=== PATIENT | female | born 1935 | race African-American/Black ===

== ENCOUNTER 2019-04-12 11:42 | Inpatient (IN) | payer MEDICARE, MEDICAID ==
[~2019-04-12] VITALS: Ht 162.6 cm; Wt 52.2 kg
--- NOTE | 2019-04-12 12:00 | EKG ---
[facility] [address] [place] [address] Test Date: 2019-04-12 Test Time: 11:56:43 Pat Name: EVANS BELCHER Department: Room: Gender: F Orderly: : 1935 Requested By: MELI FOURNIER Order Number: [id number] Reading MD: Measurements Intervals [place] Rate: 74 P: 35 UT: 136 QRS: -9 QRSD: 70 T: 66 QT: 390 QTc: 438 Interpretive Statements SINUS RHYTHM LEFTWARD AXIS ST & T ABNORMALITY, CONSIDER HIGH LATERAL ISCHEMIA OR LEFT VENTRICULAR STRAIN ABNORMAL ECG RI6.01 No previous ECG available for comparison
[2019-04-12] MEDS ORDERED: IV NORMAL SALINE 500ML BAG 500 ML IV ONE (12:15)
[2019-04-12] MEDS ORDERED: IV 1/2 NORMAL SALINE 1,000 ML IV ONE (12:15)
--- NOTE | 2019-04-12 12:19 | PHYS DOC ---
Adult General Chief Complaint Chief Complaint: ALTERED MENTAL STATUS HPI HPI Patient is an 83-year-old female who presents from nursing facility via EMS with report of altered mental status and concerns for dehydration with abnormal lab results. EMS states that patient has been nonverbal since they picked patient and patient remains nonverbal in the ER. Unable to obtain additional history at this time due to patient mental state.[] Review of Systems Review of Systems Constitutional: No reported fever or chills [] Respiratory: No reported shortness of breath [] Cardiovascular: No additional information not addressed in HPI [] GI: No reported vomiting or diarrhea [] Neurologic: Positive reported mental status changes [] Unable to fully assess review of systems due to patient's mental status and nonverbal state. Current Medications Current Medications Current Medications Medications (Trade) Dose Ordered Sig/[place] Start Time Stop Time Status Last Admin Dose Admin Ceftriaxone Sodium (Rocephin) 1 gm 1X ONCE 04/12/19 13:00 04/12/19 13:01 DC 04/12/19 13:44 1 GM Ondansetron HCl (Zofran) 4 mg PRN Q8HRS PRN 04/12/19 14:00 04/13/19 13:59 UNV Sodium Chloride 500 ml @ 500 mls/hr 1X ONCE 04/12/19 12:15 04/12/19 13:14 DC 04/12/19 13:43 500 MLS/HR Allergies Allergies Allergies Coded Allergies Type Severity Reaction Last Updated Verified oxycodone Allergy Intermediate Unknown 04/12/19 Yes Physical Exam Physical Exam Constitutional: Well developed, well nourished, no acute distress, non-toxic appearance. [] HENT: Normocephalic, atraumatic, bilateral external ears normal, oropharynx dry, no oral exudates, nose normal. [] Eyes: PERRLA, EOMI, conjunctiva normal, no discharge. [] Neck: Normal range of motion, no tenderness, supple, no stridor. [] Cardiovascular: Regular rate and rhythm[] Lungs & Thorax: Bilateral breath sounds clear to auscultation [] Abdomen: Bowel sounds normal, soft, no tenderness. [] Skin: Warm, dry, no erythema, no rash. [] Extremities: No tenderness, no cyanosis, no clubbing, ROM intact. [] Neurologic: Somnolent but easily arousable. Unable to fully assess neurological status as patient is unable to follow commands. [] Current Patient Data Vital Signs Vital Signs Date Time Temp Pulse Resp B/P (MAP) Pulse Ox O2 Delivery O2 Flow Rate FiO2 04/12/19 12:19 97.8 80 18 125/70 (88) 98 Room Air 97.8 Lab Values Laboratory Tests Test 04/12/19 12:20 04/12/19 12:55 Urine Collection Type U cath Urine Color Yellow Urine Clarity Hazy Urine pH >8.5 Urine Specific [place] 1.015 Urine Protein 100 mg/dL (NEG-TRACE) Urine Glucose (UA) Negative mg/dL (NEG) Urine Ketones (Stick) Negative mg/dL (NEG) Urine Blood Small (NEG) Urine Nitrite Positive (NEG) Urine Bilirubin Negative (NEG) Urine Urobilinogen Dipstick 1.0 mg/dL (0.2 mg/dL) Urine Leukocyte Esterase Large (NEG) White Blood Count 14.4 x10^3/uL (4.0-11.0) H Red Blood Count 5.84 x10^6/uL (3.50-5.40) H Hemoglobin 15.9 g/dL (12.0-15.5) H Hematocrit 48.6 % (36.0-47.0) H Mean Corpuscular Volume 83 fL (79-100) Mean Corpuscular Hemoglobin 27 pg (25-35) Mean Corpuscular Hemoglobin Concent 33 g/dL (31-37) Red Cell Distribution Width 14.6 % (11.5-14.5) H Platelet Count 231 x10^3/uL (140-400) Neutrophils (%) (Auto) 79 % (31-73) H Lymphocytes (%) (Auto) 15 % (24-48) L Monocytes (%) (Auto) 5 % (0-9) Eosinophils (%) (Auto) 0 % (0-3) Basophils (%) (Auto) 0 % (0-3) Neutrophils # (Auto) 11.4 x10^3/uL (1.8-7.7) H Lymphocytes # (Auto) 2.2 x10^3/uL (1.0-4.8) Monocytes # (Auto) 0.8 x10^3/uL (0.0-1.1) Eosinophils # (Auto) 0.0 x10^3/uL (0.0-0.7) Basophils # (Auto) 0.1 x10^3/uL (0.0-0.2) Prothrombin Time 13.9 SEC (11.7-14.0) Prothrombin Time INR 1.1 (0.8-1.1) Sodium Level 160 mmol/L (136-145) *H Potassium Level 4.2 mmol/L (3.5-5.1) Chloride Level 119 mmol/L (98-107) H Carbon Dioxide Level 32 mmol/L (21-32) Anion Gap 9 (6-14) Blood Urea Nitrogen 48 mg/dL (7-20) H Creatinine 1.3 mg/dL (0.6-1.0) H Estimated GFR (Cockcroft-Gault) 47.1 BUN/Creatinine Ratio 37 (6-20) H Glucose Level 109 mg/dL (70-99) H Calcium Level 10.0 mg/dL (8.5-10.1) Magnesium Level 2.7 mg/dL (1.8-2.4) H Total Bilirubin 1.3 mg/dL (0.2-1.0) H Aspartate Amino Transferase (AST) 25 U/L (15-37) Alanine Aminotransferase (ALT) 19 U/L (14-59) Alkaline Phosphatase 82 U/L (46-116) Ammonia < 10 mcmol/L (11-34) L Troponin I Quantitative < 0.017 ng/mL (0.000-0.055) BQ-Zeg-Q-Type Natriuretic Peptide 218 pg/mL (0-449) Total Protein 7.5 g/dL (6.4-8.2) Albumin 3.9 g/dL (3.4-5.0) Albumin/Globulin Ratio 1.1 (1.0-1.7) Laboratory Tests 04/12/19 12:55 Laboratory Tests 04/12/19 12:55 EKG EKG EKG demonstrates normal sinus rhythm with rate of 74.[] Radiology/Procedures Radiology/Procedures [] Course & Med Decision Making Course & Med Decision Making Pertinent Labs and Imaging studies reviewed. (See chart for details) [] Dragon Disclaimer Dragon Disclaimer This electronic medical record was generated, in whole or in part, using a voice recognition dictation system. Departure Departure Impression: Primary Impression: Hypernatremia Additional Impressions: UTI (urinary tract infection) Dehydration Altered mental status Disposition: 09 ADMITTED INPATIENT Admitting Physician: NAEL (Dr. Almodovar) Condition: GUARDED Referrals: NICHOLE BLUE MD (PCP) Problem Qualifiers Additional Impressions: UTI (urinary tract infection) Urinary tract infection type: site unspecified Hematuria presence: without hematuria Qualified Codes: N39.0 - Urinary tract infection, site not spec ified Altered mental status Altered mental status type: unspecified Qualified Codes: R41.82 - Altered mental status, unspecified MELI FOURNIER Jr. DO Apr 12, 2019 12:19
--- NOTE | 2019-04-12 12:29 | RAD ---
PORTABLE CHEST 1V History: Altered mental status Comparison: October 28, 2006 Findings: Low lung volumes. Patchy left basilar opacity. Right basilar linear atelectasis. Advanced bilateral glenohumeral DJD. No pneumothorax. No pleural effusion. Stable heart size. Postop changes lumbar spine. Impression: 1. Patchy left basilar opacity, may represent atelectasis or consolidation. PA and lateral view of the chest can further evaluate if clinically indicated. 2. Low lung volumes with right basilar linear atelectasis. Electronically signed by: Luciano Godron DO (04/12/2019 12:26 PM) [id number]
[2019-04-12 12:44] LABS: BILIRUBIN,URINE NEGATIVE (NEG); CLARITY,URINE HAZY; COLOR,URINE YELLOW
[2019-04-12 12:45] LABS: NITRITE,URINE POSITIVE (NEG); PH,URINE >8.5; PROTEIN,URINE 100 mg/dL (NEG-TRACE)
[2019-04-12] MEDS ORDERED: cefTRIAXone IV Push 1 GM VIAL. IVP ONE (13:00)
[2019-04-12 13:08] LABS: BASO # 0.1 x10^3/uL (0.0-0.2); BASO % 0 % (0-3); EOS % 0 % (0-3); HEMATOCRIT 48.6 % (36.0-47.0); HEMOGLOBIN 15.9 g/dL (12.0-15.5); LYMPH # 2.2 x10^3/uL (1.0-4.8); LYMPH % 15 % (24-48); MEAN CORPUSCULAR HEMOGLOBIN 27 pg (25-35); MEAN CORPUSCULAR HGB CONC 33 g/dL (31-37); MEAN CORPUSCULAR VOLUME 83 fL (79-100); MONO # 0.8 x10^3/uL (0.0-1.1); MONO % 5 % (0-9); NEUT # 11.4 x10^3/uL (1.8-7.7); NEUT % 79 % (31-73); PLATELET COUNT 231 x10^3/uL (140-400); RED BLOOD COUNT 5.84 x10^6/uL (3.50-5.40); RED CELL DISTRIBUTION WIDTH 14.6 % (11.5-14.5); WHITE BLOOD COUNT 14.4 x10^3/uL (4.0-11.0)
[2019-04-12 13:17] LABS: PROTHROMBIN TIME PATIENT 13.9 SEC (11.7-14.0)
[2019-04-12 13:27] LABS: ALBUMIN 3.9 g/dL (3.4-5.0); ALBUMIN/GLOBULIN RATIO 1.1 (1.0-1.7); CREATININE 1.3 mg/dL (0.6-1.0); GFR 47.1; MAGNESIUM 2.7 mg/dL (1.8-2.4); POTASSIUM 4.2 mmol/L (3.5-5.1); TOTAL BILIRUBIN 1.3 mg/dL (0.2-1.0); TOTAL PROTEIN 7.5 g/dL (6.4-8.2)
[2019-04-12] MEDS ORDERED: ONDANSETRON PF 4 MG/2 ML VIAL. IV PRN ×2 (14:00→20:30)
--- NOTE | 2019-04-12 14:00 | RAD ---
CT HEAD WO CONTRAST Date: 04/12/2019 11:51 AM Clinical Indication: Altered mental status Comparison: 10/28/2006. Technique: 5 mm axial tomographic images were obtained of the head without contrast. These were viewed on brain and bone windows. One or more of the following dose reduction techniques were utilized: Automated exposure control (AEC), Adjustment of mA and/or kV according to patient size, Use of iterative reconstruction technique such as ASiR, CT scan done according to ALARA and image gently/image wisely Findings: Moderate generalized cerebral and cerebellar volume loss. Mild nonspecific periventricular hypoattenuation, most commonly seen with chronic small vessel ischemic disease. Calcified atherosclerosis of the bilateral cavernous and paraclinoid internal carotid arteries and intracranial vertebral arteries. No intra- or extra-axial mass or fluid collection. No acute hemorrhage. Dilation of the lateral and third ventricles, slightly out of proportion to the degree of cerebral volume loss. The pickens-white matter junction is normal. The subarachnoid cisterns are patent. The visualized paranasal sinuses are normal. The visualized portions of the orbits and globes are normal. The mastoid air cells are clear. The tree deadener topogram shows no lytic lesion or fracture. Impression: 1. No acute intracranial process. 2. Moderate cerebral volume loss. Mild chronic small vessel ischemic disease. 3. Dilation of the lateral and third ventricles, slightly out of proportion to the degree of cerebral volume loss. This could relate to advanced central atrophy, although normal pressure hydrocephalus could have a similar appearance. Electronically signed by: Guido Dempsey MD (04/12/2019 1:57 PM) [facility]
--- NOTE | 2019-04-12 14:27 | PDOC1 ---
History and Physical Date of Admission Date of Admission DATE: 04/12/19 TIME: 14:26 Identification/Chief Complaint Chief Complaint SEEN IN ER WITH HYPERNATREMIA 83-year-old female who presents from nursing facility via EMS with report of altered mental status and concerns for dehydration with abnormal lab results. EMS states that patient has been nonverbal since they picked up patient and patient remains confused but cooperative , 'keeps repeating what is my name"in the ER. Unable to obtain additional history at this time due to patient mental state. unknown baseline Past Medical History Cardiovascular: HTN Family History Family History: Hypertension Social History Smoke: No ALCOHOL: none Drugs: None Current Problem List Problem List Problems Medical Problems: (1) Altered mental status Status: Acute (2) Dehydration Status: Acute (3) Hypernatremia Status: Acute (4) UTI (urinary tract infection) Status: Acute Current Medications Current Medications Current Medications Sodium Chloride 1,000 ml @ 250 mls/hr 1X ONCE IV ; Start 04/12/19 at 12:15; Stop 04/12/19 at 16:14 Sodium Chloride 500 ml @ 500 mls/hr 1X ONCE IV Last administered on 04/12/19at 13:43; Start 04/12/19 at 12:15; Stop 04/12/19 at 13:14; Status DC Ceftriaxone Sodium (Rocephin) 1 gm 1X ONCE IVP Last administered on 04/12/19at 13:44; Start 04/12/19 at 13:00; Stop 04/12/19 at 13:01; Status DC Ondansetron HCl (Zofran) 4 mg PRN Q8HRS PRN IV NAUSEA/VOMITING; Start 04/12/19 at 14:00; Stop 04/13/19 at 13:59 Allergies Allergies: Coded Allergies: oxycodone (Verified Allergy, Intermediate, Unknown, 04/12/19) ROS Review of System Review of Systems Review of Systems Constitutional: No reported fever or chills [] Respiratory: No reported shortness of breath [] Cardiovascular: No additional information not addressed in HPI [] GI: No reported vomiting or diarrhea [] Neurologic: Positive reported mental status changes [] Unable to fully assess review of systems due to patient's mental status and encephalopathic state. Vitals Vitals Vital Signs Date Time Temp Pulse Resp B/P (MAP) Pulse Ox O2 Delivery O2 Flow Rate FiO2 04/12/19 12:19 97.8 80 18 125/70 (88) 98 Room Air 97.8 Labs Labs Laboratory Tests Test 04/12/19 12:20 04/12/19 12:55 Urine Collection Type U cath Urine Color Yellow Urine Clarity Hazy Urine pH >8.5 Urine Specific [place] 1.015 Urine Protein 100 mg/dL (NEG-TRACE) Urine Glucose (UA) Negative mg/dL (NEG) Urine Ketones (Stick) Negative mg/dL (NEG) Urine Blood Small (NEG) Urine Nitrite Positive (NEG) Urine Bilirubin Negative (NEG) Urine Urobilinogen Dipstick 1.0 mg/dL (0.2 mg/dL) Urine Leukocyte Esterase Large (NEG) White Blood Count 14.4 x10^3/uL (4.0-11.0) Red Blood Count 5.84 x10^6/uL (3.50-5.40) Hemoglobin 15.9 g/dL (12.0-15.5) Hematocrit 48.6 % (36.0-47.0) Mean Corpuscular Volume 83 fL (79-100) Mean Corpuscular Hemoglobin 27 pg (25-35) Mean Corpuscular Hemoglobin Concent 33 g/dL (31-37) Red Cell Distribution Width 14.6 % (11.5-14.5) Platelet Count 231 x10^3/uL (140-400) Neutrophils (%) (Auto) 79 % (31-73) Lymphocytes (%) (Auto) 15 % (24-48) Monocytes (%) (Auto) 5 % (0-9) Eosinophils (%) (Auto) 0 % (0-3) Basophils (%) (Auto) 0 % (0-3) Neutrophils # (Auto) 11.4 x10^3/uL (1.8-7.7) Lymphocytes # (Auto) 2.2 x10^3/uL (1.0-4.8) Monocytes # (Auto) 0.8 x10^3/uL (0.0-1.1) Eosinophils # (Auto) 0.0 x10^3/uL (0.0-0.7) Basophils # (Auto) 0.1 x10^3/uL (0.0-0.2) Prothrombin Time 13.9 SEC (11.7-14.0) Prothromb Time International Ratio 1.1 (0.8-1.1) Sodium Level 160 mmol/L (136-145) Potassium Level 4.2 mmol/L (3.5-5.1) Chloride Level 119 mmol/L (98-107) Carbon Dioxide Level 32 mmol/L (21-32) Anion Gap 9 (6-14) Blood Urea Nitrogen 48 mg/dL (7-20) Creatinine 1.3 mg/dL (0.6-1.0) Estimated GFR (Cockcroft-Gault) 47.1 BUN/Creatinine Ratio 37 (6-20) Glucose Level 109 mg/dL (70-99) Calcium Level 10.0 mg/dL (8.5-10.1) Magnesium Level 2.7 mg/dL (1.8-2.4) Total Bilirubin 1.3 mg/dL (0.2-1.0) Aspartate Amino Transf (AST/SGOT) 25 U/L (15-37) Alanine Aminotransferase (ALT/SGPT) 19 U/L (14-59) Alkaline Phosphatase 82 U/L (46-116) Ammonia < 10 mcmol/L (11-34) Troponin I Quantitative < 0.017 ng/mL (0.000-0.055) AU-Mcn-E-Type Natriuretic Peptide 218 pg/mL (0-449) Total Protein 7.5 g/dL (6.4-8.2) Albumin 3.9 g/dL (3.4-5.0) Albumin/Globulin Ratio 1.1 (1.0-1.7) Laboratory Tests Test 04/12/19 12:20 04/12/19 12:55 Urine Collection Type U cath Urine Color Yellow Urine Clarity Hazy Urine pH >8.5 Urine Specific [place] 1.015 Urine Protein 100 mg/dL (NEG-TRACE) Urine Glucose (UA) Negative mg/dL (NEG) Urine Ketones (Stick) Negative mg/dL (NEG) Urine Blood Small (NEG) Urine Nitrite Positive (NEG) Urine Bilirubin Negative (NEG) Urine Urobilinogen Dipstick 1.0 mg/dL (0.2 mg/dL) Urine Leukocyte Esterase Large (NEG) White Blood Count 14.4 x10^3/uL (4.0-11.0) Red Blood Count 5.84 x10^6/uL (3.50-5.40) Hemoglobin 15.9 g/dL (12.0-15.5) Hematocrit 48.6 % (36.0-47.0) Mean Corpuscular Volume 83 fL (79-100) Mean Corpuscular Hemoglobin 27 pg (25-35) Mean Corpuscular Hemoglobin Concent 33 g/dL (31-37) Red Cell Distribution Width 14.6 % (11.5-14.5) Platelet Count 231 x10^3/uL (140-400) Neutrophils (%) (Auto) 79 % (31-73) Lymphocytes (%) (Auto) 15 % (24-48) Monocytes (%) (Auto) 5 % (0-9) Eosinophils (%) (Auto) 0 % (0-3) Basophils (%) (Auto) 0 % (0-3) Neutrophils # (Auto) 11.4 x10^3/uL (1.8-7.7) Lymphocytes # (Auto) 2.2 x10^3/uL (1.0-4.8) Monocytes # (Auto) 0.8 x10^3/uL (0.0-1.1) Eosinophils # (Auto) 0.0 x10^3/uL (0.0-0.7) Basophils # (Auto) 0.1 x10^3/uL (0.0-0.2) Prothrombin Time 13.9 SEC (11.7-14.0) Prothromb Time International Ratio 1.1 (0.8-1.1) Sodium Level 160 mmol/L (136-145) Potassium Level 4.2 mmol/L (3.5-5.1) Chloride Level 119 mmol/L (98-107) Carbon Dioxide Level 32 mmol/L (21-32) Anion Gap 9 (6-14) Blood Urea Nitrogen 48 mg/dL (7-20) Creatinine 1.3 mg/dL (0.6-1.0) Estimated GFR (Cockcroft-Gault) 47.1 BUN/Creatinine Ratio 37 (6-20) Glucose Level 109 mg/dL (70-99) Calcium Level 10.0 mg/dL (8.5-10.1) Magnesium Level 2.7 mg/dL (1.8-2.4) Total Bilirubin 1.3 mg/dL (0.2-1.0) Aspartate Amino Transf (AST/SGOT) 25 U/L (15-37) Alanine Aminotransferase (ALT/SGPT) 19 U/L (14-59) Alkaline Phosphatase 82 U/L (46-116) Ammonia < 10 mcmol/L (11-34) Troponin I Quantitative < 0.017 ng/mL (0.000-0.055) ZU-Qdq-Y-Type Natriuretic Peptide 218 pg/mL (0-449) Total Protein 7.5 g/dL (6.4-8.2) Albumin 3.9 g/dL (3.4-5.0) Albumin/Globulin Ratio 1.1 (1.0-1.7) Images Images CT HEAD WO CONTRAST Date: 04/12/2019 11:51 AM Clinical Indication: Altered mental status Comparison: 10/28/2006. Technique: 5 mm axial tomographic images were obtained of the head without contrast. These were viewed on brain and bone windows. One or more of the following dose reduction techniques were utilized: Automated exposure control (AEC), Adjustment of mA and/or kV according to patient size, Use of iterative reconstruction technique such as ASiR, CT scan done according to ALARA and image gently/image wisely Findings: Moderate generalized cerebral and cerebellar volume loss. Mild nonspecific periventricular hypoattenuation, most commonly seen with chronic small vessel ischemic disease. Calcified atherosclerosis of the bilateral cavernous and paraclinoid internal carotid arteries and intracranial vertebral arteries. No intra- or extra-axial mass or fluid collection. No acute hemorrhage. Dilation of the lateral and third ventricles, slightly out of proportion to the degree of cerebral volume loss. The pickens-white matter junction is normal. The subarachnoid cisterns are patent. The visualized paranasal sinuses are normal. The visualized portions of the orbits and globes are normal. The mastoid air cells are clear. The trick rodeo rider topogram shows no lytic lesion or fracture. Impression: 1. No acute intracranial process. 2. Moderate cerebral volume loss. Mild chronic small vessel ischemic disease. 3. Dilation of the lateral and third ventricles, slightly out of proportion to the degree of cerebral volume loss. This could relate to advanced central atrophy, although normal pressure hydrocephalus could have a similar appearance. Electronically signed by: Gentry Brand MD (04/12/2019 1:57 PM) [id number] DICTATED and SIGNED BY: GENTRY BRAND MD DATE: 04/12/19 1357 VTE Prophylaxis Ordered VTE Prophylaxis Devices: No VTE Pharmacological Prophylaxi: Yes Assessment/Plan Assessment/Plan Impression: Hypernatremia, volume depleted, severe acute metabolic encephalopathy UTI (urinary tract infection) Dehydration SEPSIS Altered mental status No acute intracranial process. Moderate cerebral volume loss. Mild chronic small vessel ischemic disease. Dilation of the lateral and third ventricles, slightly out of proportion to the degree of cerebral volume loss. This could relate to advanced central atrophy, although normal pressure hydrocephalus could have a similar appearance. ADMITTED iv fluid support, frequent bmp nephrology consult neurology consult dvt prophylaxis iv rocephin, urine culture blood culture ID CONSULT 36 min cc time JODY UNGER MD Apr 12, 2019 14:27
[2019-04-12 19:28] VITALS: BP 158/81
[2019-04-12 20:11] VITALS: BP 168/79
[2019-04-12] MEDS ORDERED: ACETAMINOPHEN 325 MG TABLET. PO PRN (20:30)
[2019-04-12] MEDS ORDERED: LORazepam 0.5 MG TABLET PO PRN (20:30)
[2019-04-12] MEDS ORDERED: 0.9 % SODIUM CHLORIDE 10 ML DISP.SYRIN. IV PRN (20:30)
[2019-04-12] MEDS ORDERED: ALBUTEROL SULFATE 2.5 MG/3 ML NEBU. NEB PRN (20:30)
[2019-04-12] MEDS ORDERED: guaiFENesin ORAL 200 MG/10 ML LIQUID. PO PRN (20:30)
[2019-04-12 23:31] VITALS: BP 159/68
[2019-04-13 01:35] LABS: CALCIUM 9.4 mg/dL (8.5-10.1); GFR 63.8; POTASSIUM 3.7 mmol/L (3.5-5.1)
[2019-04-13 03:28] VITALS: BP 140/71
[2019-04-13] MEDS ORDERED: IV NORMAL SALINE 1000ML BAG 1,000 ML IV SCH (03:30)
[2019-04-13 05:25] LABS: BASO % 0 % (0-3); EOS # 0.1 x10^3/uL (0.0-0.7); EOS % 0 % (0-3); HEMOGLOBIN 15.7 g/dL (12.0-15.5); LYMPH # 2.5 x10^3/uL (1.0-4.8); LYMPH % 19 % (24-48); MEAN CORPUSCULAR HEMOGLOBIN 27 pg (25-35); MEAN CORPUSCULAR HGB CONC 31 g/dL (31-37); MONO # 0.7 x10^3/uL (0.0-1.1); MONO % 6 % (0-9); NEUT # 9.8 x10^3/uL (1.8-7.7); NEUT % 75 % (31-73); PLATELET COUNT 231 x10^3/uL (140-400); RED BLOOD COUNT 5.88 x10^6/uL (3.50-5.40); RED CELL DISTRIBUTION WIDTH 15.3 % (11.5-14.5); WHITE BLOOD COUNT 13.1 x10^3/uL (4.0-11.0)
[2019-04-13 05:27] LABS: HEMATOCRIT 49.2 % (36.0-47.0); MEAN CORPUSCULAR VOLUME 85 fL (79-100)
[2019-04-13 07:30] VITALS: BP 178/85
--- NOTE | 2019-04-13 07:54 | NUR ---
Critical microbiology culture result relayed to Dr. Almodovar at 0743, orders received to start antibiotics, vancomycin and zosyn and another set of blood culture. Currently, patient is resting in bed, AOx 1, call light within reach.
[2019-04-13] MEDS ORDERED: VANCOMYCIN 750 MG in IV NORMAL SALINE 250ML 250 ML IV ONE (08:00)
--- NOTE | 2019-04-13 08:18 | PDOC ---
PROGRESS NOTES History of Present Illness History of Present Illness VTE Prophylaxis Ordered VTE Prophylaxis Devices: No VTE Pharmacological Prophylaxi: Yes Assessment/Plan Assessment/Plan Impression: Hypernatremia, volume depleted, severe acute metabolic encephalopathy UTI (urinary tract infection) Dehydration SEPSIS Bacteremia POA 04/12 GNR/GPC 1/2 bottles Altered mental status No acute intracranial process. Moderate cerebral volume loss. Mild chronic small vessel ischemic disease. Dilation of the lateral and third ventricles, slightly out of proportion to the degree of cerebral volume loss. This could relate to advanced central atrophy, although normal pressure hydrocephalus could have a similar appearance. ADMITTED iv fluid support, frequent bmp nephrology consult neurology consult dvt prophylaxis iv rocephin, urine culture blood culture ID CONSULT POOR PROGNOSIS 37 min cc time Vitals Vitals Vital Signs Date Time Temp Pulse Resp B/P (MAP) Pulse Ox O2 Delivery O2 Flow Rate FiO2 04/13/19 07:30 98.0 83 18 178/85 (116) 95 Room Air 98.0 Physical Exam Physical Exam Lungs & Thorax: Bilateral breath sounds clear to auscultation [] Abdomen: Bowel sounds normal, soft, no tenderness. [] Skin: Warm, dry, no erythema, no rash. [] Extremities: No tenderness, no cyanosis, no clubbing, ROM intact. [] Neurologic: Somnolent but easily arousable. Unable to fully assess neurological status as patient is unable to follow commands. General: Cooperative, No acute distress Heart: Regular rate Lungs: Clear Abdomen: Normal bowel sounds, Soft Extremities: No cyanosis Labs LABS EXAM: AP View of the chest DATE: 04/13/2019 8:23 PM INDICATION: Sepsis COMPARISON: 04/12/2019 FINDINGS/ IMPRESSION: The heart is not enlarged. Mediastinal and hilar contours are stable. Mild left lung base patchy airspace opacities likely atelectasis. Trace left pleural effusion. No pneumothorax. Glenohumeral joint degenerative changes are seen. Electronically signed by: Marcello Crowder MD (04/13/2019 9:22 AM) [id number] DICTATED and SIGNED BY: MARCELLO CROWDER MD DATE: 04/13/19 0922 STATUS: ADM IN TLOC: SPEC #: [id number] SUSANA: 04/12/19 STATUS: HAILEY CARDOZO #: [id number] RECD: 04/12/19 [facility] DR: MELI FOURNIER Jr. DO SOURCE: BLOOD ENTR: 04/12/19-[address] [facility] [address]: OWEN HEN[facility]: ORDERED: BCULT -- Procedure Result BLOOD CULTURE Final GRAM NEGATIVE RODS AND FEW GRAM POSITIVE COCCI. GROWTH IN ONE OF TWO BOTTLES OF ONE SET DRAWN. CALLED TO JENNIFER STARK ON 6S 04/13/19 AT 0720 BY [employer]. Laboratory Tests Test 04/12/19 12:20 04/12/19 12:55 04/13/19 01:07 04/13/19 04:00 Urine Collection Type U cath Urine Color Yellow Urine Clarity Hazy Urine pH >8.5 Urine Specific Clemons 1.015 Urine Protein 100 mg/dL (NEG-TRACE) Urine Glucose (UA) Negative mg/dL (NEG) Urine Ketones (Stick) Negative mg/dL (NEG) Urine Blood Small (NEG) Urine Nitrite Positive (NEG) Urine Bilirubin Negative (NEG) Urine Urobilinogen Dipstick 1.0 mg/dL (0.2 mg/dL) Urine Leukocyte Esterase Large (NEG) White Blood Count 14.4 x10^3/uL (4.0-11.0) 13.1 x10^3/uL (4.0-11.0) Red Blood Count 5.84 x10^6/uL (3.50-5.40) 5.88 x10^6/uL (3.50-5.40) Hemoglobin 15.9 g/dL (12.0-15.5) 15.7 g/dL (12.0-15.5) Hematocrit 48.6 % (36.0-47.0) 49.2 % (36.0-47.0) Mean Corpuscular Volume 83 fL (79-100) 85 fL (79-100) Mean Corpuscular Hemoglobin 27 pg (25-35) 27 pg (25-35) Mean Corpuscular Hemoglobin Concent 33 g/dL (31-37) 31 g/dL (31-37) Red Cell Distribution Width 14.6 % (11.5-14.5) 15.3 % (11.5-14.5) Platelet Count 231 x10^3/uL (140-400) 231 x10^3/uL (140-400) Neutrophils (%) (Auto) 79 % (31-73) 75 % (31-73) Lymphocytes (%) (Auto) 15 % (24-48) 19 % (24-48) Monocytes (%) (Auto) 5 % (0-9) 6 % (0-9) Eosinophils (%) (Auto) 0 % (0-3) 0 % (0-3) Basophils (%) (Auto) 0 % (0-3) 0 % (0-3) Neutrophils # (Auto) 11.4 x10^3/uL (1.8-7.7) 9.8 x10^3/uL (1.8-7.7) Lymphocytes # (Auto) 2.2 x10^3/uL (1.0-4.8) 2.5 x10^3/uL (1.0-4.8) Monocytes # (Auto) 0.8 x10^3/uL (0.0-1.1) 0.7 x10^3/uL (0.0-1.1) Eosinophils # (Auto) 0.0 x10^3/uL (0.0-0.7) 0.1 x10^3/uL (0.0-0.7) Basophils # (Auto) 0.1 x10^3/uL (0.0-0.2) 0.0 x10^3/uL (0.0-0.2) Prothrombin Time 13.9 SEC (11.7-14.0) Prothromb Time International Ratio 1.1 (0.8-1.1) Sodium Level 160 mmol/L (136-145) 161 mmol/L (136-145) Potassium Level 4.2 mmol/L (3.5-5.1) 3.7 mmol/L (3.5-5.1) Chloride Level 119 mmol/L (98-107) 121 mmol/L (98-107) Carbon Dioxide Level 32 mmol/L (21-32) 28 mmol/L (21-32) Anion Gap 9 (6-14) 12 (6-14) Blood Urea Nitrogen 48 mg/dL (7-20) 40 mg/dL (7-20) Creatinine 1.3 mg/dL (0.6-1.0) 1.0 mg/dL (0.6-1.0) Estimated GFR (Cockcroft-Gault) 47.1 63.8 BUN/Creatinine Ratio 37 (6-20) Glucose Level 109 mg/dL (70-99) 110 mg/dL (70-99) Calcium Level 10.0 mg/dL (8.5-10.1) 9.4 mg/dL (8.5-10.1) Magnesium Level 2.7 mg/dL (1.8-2.4) Total Bilirubin 1.3 mg/dL (0.2-1.0) Aspartate Amino Transf (AST/SGOT) 25 U/L (15-37) Alanine Aminotransferase (ALT/SGPT) 19 U/L (14-59) Alkaline Phosphatase 82 U/L (46-116) Ammonia < 10 mcmol/L (11-34) Troponin I Quantitative < 0.017 ng/mL (0.000-0.055) KJ-Vex-B-Type Natriuretic Peptide 218 pg/mL (0-449) Total Protein 7.5 g/dL (6.4-8.2) Albumin 3.9 g/dL (3.4-5.0) Albumin/Globulin Ratio 1.1 (1.0-1.7) Assessment and Plan Assessmemt and Plan Problems Medical Problems: (1) Altered mental status Status: Acute (2) Dehydration Status: Acute (3) Hypernatremia Status: Acute (4) UTI (urinary tract infection) Status: Acute Comment Review of Relevant I have reviewed the following items shalini (where applicable) has been applied. Labs Laboratory Tests Test 04/12/19 12:20 04/12/19 12:55 04/13/19 01:07 04/13/19 04:00 Urine Collection Type U cath Urine Color Yellow Urine Clarity Hazy Urine pH >8.5 Urine Specific Clemons 1.015 Urine Protein 100 mg/dL (NEG-TRACE) Urine Glucose (UA) Negative mg/dL (NEG) Urine Ketones (Stick) Negative mg/dL (NEG) Urine Blood Small (NEG) Urine Nitrite Positive (NEG) Urine Bilirubin Negative (NEG) Urine Urobilinogen Dipstick 1.0 mg/dL (0.2 mg/dL) Urine Leukocyte Esterase Large (NEG) White Blood Count 14.4 x10^3/uL (4.0-11.0) 13.1 x10^3/uL (4.0-11.0) Red Blood Count 5.84 x10^6/uL (3.50-5.40) 5.88 x10^6/uL (3.50-5.40) Hemoglobin 15.9 g/dL (12.0-15.5) 15.7 g/dL (12.0-15.5) Hematocrit 48.6 % (36.0-47.0) 49.2 % (36.0-47.0) Mean Corpuscular Volume 83 fL (79-100) 85 fL (79-100) Mean Corpuscular Hemoglobin 27 pg (25-35) 27 pg (25-35) Mean Corpuscular Hemoglobin Concent 33 g/dL (31-37) 31 g/dL (31-37) Red Cell Distribution Width 14.6 % (11.5-14.5) 15.3 % (11.5-14.5) Platelet Count 231 x10^3/uL (140-400) 231 x10^3/uL (140-400) Neutrophils (%) (Auto) 79 % (31-73) 75 % (31-73) Lymphocytes (%) (Auto) 15 % (24-48) 19 % (24-48) Monocytes (%) (Auto) 5 % (0-9) 6 % (0-9) Eosinophils (%) (Auto) 0 % (0-3) 0 % (0-3) Basophils (%) (Auto) 0 % (0-3) 0 % (0-3) Neutrophils # (Auto) 11.4 x10^3/uL (1.8-7.7) 9.8 x10^3/uL (1.8-7.7) Lymphocytes # (Auto) 2.2 x10^3/uL (1.0-4.8) 2.5 x10^3/uL (1.0-4.8) Monocytes # (Auto) 0.8 x10^3/uL (0.0-1.1) 0.7 x10^3/uL (0.0-1.1) Eosinophils # (Auto) 0.0 x10^3/uL (0.0-0.7) 0.1 x10^3/uL (0.0-0.7) Basophils # (Auto) 0.1 x10^3/uL (0.0-0.2) 0.0 x10^3/uL (0.0-0.2) Prothrombin Time 13.9 SEC (11.7-14.0) Prothromb Time International Ratio 1.1 (0.8-1.1) Sodium Level 160 mmol/L (136-145) 161 mmol/L (136-145) Potassium Level 4.2 mmol/L (3.5-5.1) 3.7 mmol/L (3.5-5.1) Chloride Level 119 mmol/L (98-107) 121 mmol/L (98-107) Carbon Dioxide Level 32 mmol/L (21-32) 28 mmol/L (21-32) Anion Gap 9 (6-14) 12 (6-14) Blood Urea Nitrogen 48 mg/dL (7-20) 40 mg/dL (7-20) Creatinine 1.3 mg/dL (0.6-1.0) 1.0 mg/dL (0.6-1.0) Estimated GFR (Cockcroft-Gault) 47.1 63.8 BUN/Creatinine Ratio 37 (6-20) Glucose Level 109 mg/dL (70-99) 110 mg/dL (70-99) Calcium Level 10.0 mg/dL (8.5-10.1) 9.4 mg/dL (8.5-10.1) Magnesium Level 2.7 mg/dL (1.8-2.4) Total Bilirubin 1.3 mg/dL (0.2-1.0) Aspartate Amino Transf (AST/SGOT) 25 U/L (15-37) Alanine Aminotransferase (ALT/SGPT) 19 U/L (14-59) Alkaline Phosphatase 82 U/L (46-116) Ammonia < 10 mcmol/L (11-34) Troponin I Quantitative < 0.017 ng/mL (0.000-0.055) BH-Nop-V-Type Natriuretic Peptide 218 pg/mL (0-449) Total Protein 7.5 g/dL (6.4-8.2) Albumin 3.9 g/dL (3.4-5.0) Albumin/Globulin Ratio 1.1 (1.0-1.7) Laboratory Tests Test 04/12/19 12:20 04/12/19 12:55 04/13/19 01:07 04/13/19 04:00 Urine Collection Type U cath Urine Color Yellow Urine Clarity Hazy Urine pH >8.5 Urine Specific Clemons 1.015 Urine Protein 100 mg/dL (NEG-TRACE) Urine Glucose (UA) Negative mg/dL (NEG) Urine Ketones (Stick) Negative mg/dL (NEG) Urine Blood Small (NEG) Urine Nitrite Positive (NEG) Urine Bilirubin Negative (NEG) Urine Urobilinogen Dipstick 1.0 mg/dL (0.2 mg/dL) Urine Leukocyte Esterase Large (NEG) White Blood Count 14.4 x10^3/uL (4.0-11.0) 13.1 x10^3/uL (4.0-11.0) Red Blood Count 5.84 x10^6/uL (3.50-5.40) 5.88 x10^6/uL (3.50-5.40) Hemoglobin 15.9 g/dL (12.0-15.5) 15.7 g/dL (12.0-15.5) Hematocrit 48.6 % (36.0-47.0) 49.2 % (36.0-47.0) Mean Corpuscular Volume 83 fL (79-100) 85 fL (79-100) Mean Corpuscular Hemoglobin 27 pg (25-35) 27 pg (25-35) Mean Corpuscular Hemoglobin Concent 33 g/dL (31-37) 31 g/dL (31-37) Red Cell Distribution Width 14.6 % (11.5-14.5) 15.3 % (11.5-14.5) Platelet Count 231 x10^3/uL (140-400) 231 x10^3/uL (140-400) Neutrophils (%) (Auto) 79 % (31-73) 75 % (31-73) Lymphocytes (%) (Auto) 15 % (24-48) 19 % (24-48) Monocytes (%) (Auto) 5 % (0-9) 6 % (0-9) Eosinophils (%) (Auto) 0 % (0-3) 0 % (0-3) Basophils (%) (Auto) 0 % (0-3) 0 % (0-3) Neutrophils # (Auto) 11.4 x10^3/uL (1.8-7.7) 9.8 x10^3/uL (1.8-7.7) Lymphocytes # (Auto) 2.2 x10^3/uL (1.0-4.8) 2.5 x10^3/uL (1.0-4.8) Monocytes # (Auto) 0.8 x10^3/uL (0.0-1.1) 0.7 x10^3/uL (0.0-1.1) Eosinophils # (Auto) 0.0 x10^3/uL (0.0-0.7) 0.1 x10^3/uL (0.0-0.7) Basophils # (Auto) 0.1 x10^3/uL (0.0-0.2) 0.0 x10^3/uL (0.0-0.2) Prothrombin Time 13.9 SEC (11.7-14.0) Prothromb Time International Ratio 1.1 (0.8-1.1) Sodium Level 160 mmol/L (136-145) 161 mmol/L (136-145) Potassium Level 4.2 mmol/L (3.5-5.1) 3.7 mmol/L (3.5-5.1) Chloride Level 119 mmol/L (98-107) 121 mmol/L (98-107) Carbon Dioxide Level 32 mmol/L (21-32) 28 mmol/L (21-32) Anion Gap 9 (6-14) 12 (6-14) Blood Urea Nitrogen 48 mg/dL (7-20) 40 mg/dL (7-20) Creatinine 1.3 mg/dL (0.6-1.0) 1.0 mg/dL (0.6-1.0) Estimated GFR (Cockcroft-Gault) 47.1 63.8 BUN/Creatinine Ratio 37 (6-20) Glucose Level 109 mg/dL (70-99) 110 mg/dL (70-99) Calcium Level 10.0 mg/dL (8.5-10.1) 9.4 mg/dL (8.5-10.1) Magnesium Level 2.7 mg/dL (1.8-2.4) Total Bilirubin 1.3 mg/dL (0.2-1.0) Aspartate Amino Transf (AST/SGOT) 25 U/L (15-37) Alanine Aminotransferase (ALT/SGPT) 19 U/L (14-59) Alkaline Phosphatase 82 U/L (46-116) Ammonia < 10 mcmol/L (11-34) Troponin I Quantitative < 0.017 ng/mL (0.000-0.055) UQ-Wke-Y-Type Natriuretic Peptide 218 pg/mL (0-449) Total Protein 7.5 g/dL (6.4-8.2) Albumin 3.9 g/dL (3.4-5.0) Albumin/Globulin Ratio 1.1 (1.0-1.7) Microbiology 04/12/19 Blood Culture - Final, Complete Medications Current Medications Sodium Chloride 1,000 ml @ 250 mls/hr 1X ONCE IV Last administered on 04/12/19at 12:15; Start 04/12/19 at 12:15; Stop 04/12/19 at 16:14; Status DC Sodium Chloride 500 ml @ 500 mls/hr 1X ONCE IV Last administered on 04/12/19at 13:43; Start 04/12/19 at 12:15; Stop 04/12/19 at 13:14; Status DC Ceftriaxone Sodium (Rocephin) 1 gm 1X ONCE IVP Last administered on 04/12/19at 13:44; Start 04/12/19 at 13:00; Stop 04/12/19 at 13:01; Status DC Ondansetron HCl (Zofran) 4 mg PRN Q8HRS PRN IV NAUSEA/VOMITING; Start 04/12/19 at 14:00; Stop 04/13/19 at 13:59 Sodium Chloride (Normal Saline Flush) 3 ml QSHIFT PRN IV AFTER MEDS AND BLOOD DRAWS; Start 04/12/19 at 20:30 Ondansetron HCl (Zofran) 4 mg PRN Q4HRS PRN IV NAUSEA/VOMITING; Start 04/12/19 at 20:30 Acetaminophen (Tylenol) 650 mg PRN Q4HRS PRN PO TEMP OVER 100.4F OR MILD PAIN; Start 04/12/19 at 20:30 Albuterol Sulfate (Ventolin Neb Soln) 2.5 mg PRN Q4HRS PRN NEB SHORTNESS OF BREATH; Start 04/12/19 at 20:30 Guaifenesin (Robitussin) 200 mg PRN Q4HRS PRN PO COUGH; Start 04/12/19 at 20:30 Lorazepam (Ativan) 0.5 mg PRN Q4HRS PRN PO ANXIETY / AGITATION; Start 04/12/19 at 20:30 Enoxaparin Sodium (Lovenox 30mg Syringe) 30 mg DAILY SQ ; Start 04/13/19 at 09:00 Sodium Chloride 1,000 ml @ 75 mls/hr [id number] IV Last administered on 04/13/19at 03:34; Start 04/13/19 at 03:30 Vancomycin HCl 750 mg/Sodium Chloride 250 ml @ 250 mls/hr Q24H ONCE IV ; Start 04/13/19 at 08:00; Stop 04/13/19 at 08:59; Status UNV Piperacillin Sod/ Tazobactam Sod 2.25 gm/Sodium Chloride 50 ml @ 100 mls/hr Q6HRS IV ; Start 04/13/19 at 08:00 Vancomycin HCl 1 gm/Sodium Chloride 250 ml @ 250 mls/hr 1X ONCE IV ; Start 04/13/19 at 09:00; Stop 04/13/19 at 09:59 Vancomycin HCl (Vanco Per Pharmacy) 1 each PRN DAILY PRN MC SEE COMMENTS; Start 04/13/19 at 08:15 Vitals/I & O Vital Sign - Last 24 Hours 04/12/19 04/12/19 04/12/19 04/12/19 12:19 12:39 12:39 13:36 Temp 97.8 97.8 Pulse 80 84 71 73 Resp 18 B/P (MAP) 125/70 (88) Pulse Ox 98 98 O2 Delivery Room Air 04/12/19 04/12/19 04/12/19 04/12/19 14:06 15:06 16:36 17:06 Pulse 76 72 66 46 Pulse Ox 96 94 83 04/12/19 04/12/19 04/12/19 04/12/19 18:06 18:36 19:28 20:11 Temp 98.2 98.8 98.2 98.8 Pulse 69 71 67 65 Resp 12 20 B/P (MAP) 158/81 (106) 168/79 (108) Pulse Ox 94 95 96 O2 Delivery Room Air Room Air 04/12/19 04/13/19 04/13/19 23:31 03:28 07:30 Temp 97.5 97.9 98.0 97.5 97.9 98.0 Pulse 64 83 83 Resp 18 18 18 B/P (MAP) 159/68 (98) 140/71 (94) 178/85 (116) Pulse Ox 96 95 95 O2 Delivery Room Air Room Air Room Air JODY UNGER MD Apr 13, 2019 08:18
[2019-04-13] MEDS: PIPERACILLIN/TAZOBACTAM 2.25 GM in IV NORMAL SALINE 50ML 50 ML IV SCH ×4 (08:20→23:42)
[2019-04-13] MEDS ORDERED: VANCOMYCIN 1 GM in IV NORMAL SALINE 250ML 250 ML IV ONE (09:00)
[2019-04-13 09:25] LABS: CALCIUM 9.7 mg/dL (8.5-10.1); CREATININE 1.1 mg/dL (0.6-1.0); GFR 57.1; POTASSIUM 3.6 mmol/L (3.5-5.1)
--- NOTE | 2019-04-13 09:25 | RAD ---
EXAM: AP View of the chest DATE: 04/13/2019 8:23 PM INDICATION: Sepsis COMPARISON: 04/12/2019 FINDINGS/ IMPRESSION: The heart is not enlarged. Mediastinal and hilar contours are stable. Mild left lung base patchy airspace opacities likely atelectasis. Trace left pleural effusion. No pneumothorax. Glenohumeral joint degenerative changes are seen. Electronically signed by: Marcello Leiva MD (04/13/2019 9:22 AM) [id number]
--- NOTE | 2019-04-13 09:30 | PDOC2 ---
NEUROLOGY CONSULT Date of Admission Date of Admission DATE: 04/13/19 TIME: 09:17 Reason for Consult Reason for Consult: encephalopathy Referring Physician Referring Physician: Dr. Almodovar Source Source: Caregiver (son), Chart review History of Present Illness History of Present Illness The patient is an 83-year-old right-handed female with a history of dementia dating back at least 10 years. She has had a gradual decline, her son tells me, for the last several months. She has not been eating much. She was admitted from the half-way with altered mental status and found to have hypernatremia. She has had a stroke, details unknown, in the past but no history of seizure. Son says that I saw her when she initially started having dementia following back surgery (I have no record of this but may have seen her in the hospital). Past Medical History Cardiovascular: HTN CENTRAL NERVOUS SYSTEM: CVA, Dementia (Alzheimers) GI: GERD Musculoskeletal: low back pain, Osteoarthritis Past Surgical History Past Surgical History: Cataract Removal, Hysterectomy, Other (back) Family History Family History: No pertinent hx Social History Social History , no tobacco, alcohol, half-way resident Current Medications Current Medications Current Medications Sodium Chloride 1,000 ml @ 250 mls/hr 1X ONCE IV Last administered on 04/12/19at 12:15; Start 04/12/19 at 12:15; Stop 04/12/19 at 16:14; Status DC Sodium Chloride 500 ml @ 500 mls/hr 1X ONCE IV Last administered on 04/12/19at 13:43; Start 04/12/19 at 12:15; Stop 04/12/19 at 13:14; Status DC Ceftriaxone Sodium (Rocephin) 1 gm 1X ONCE IVP Last administered on 04/12/19at 13:44; Start 04/12/19 at 13:00; Stop 04/12/19 at 13:01; Status DC Ondansetron HCl (Zofran) 4 mg PRN Q8HRS PRN IV NAUSEA/VOMITING; Start 04/12/19 at 14:00; Stop 04/13/19 at 13:59 Sodium Chloride (Normal Saline Flush) 3 ml QSHIFT PRN IV AFTER MEDS AND BLOOD DRAWS; Start 04/12/19 at 20:30 Ondansetron HCl (Zofran) 4 mg PRN Q4HRS PRN IV NAUSEA/VOMITING; Start 04/12/19 at 20:30 Acetaminophen (Tylenol) 650 mg PRN Q4HRS PRN PO TEMP OVER 100.4F OR MILD PAIN; Start 04/12/19 at 20:30 Albuterol Sulfate (Ventolin Neb Soln) 2.5 mg PRN Q4HRS PRN NEB SHORTNESS OF BREATH; Start 04/12/19 at 20:30 Guaifenesin (Robitussin) 200 mg PRN Q4HRS PRN PO COUGH; Start 04/12/19 at 20:30 Lorazepam (Ativan) 0.5 mg PRN Q4HRS PRN PO ANXIETY / AGITATION; Start 04/12/19 at 20:30 Enoxaparin Sodium (Lovenox 30mg Syringe) 30 mg DAILY SQ ; Start 04/13/19 at 09:00 Sodium Chloride 1,000 ml @ 75 mls/hr [id number] IV Last administered on 04/13/19at 03:34; Start 04/13/19 at 03:30; Stop 04/13/19 at 08:16; Status DC Vancomycin HCl 750 mg/Sodium Chloride 250 ml @ 250 mls/hr Q24H ONCE IV ; Start 04/13/19 at 08:00; Stop 04/13/19 at 08:59; Status UNV Piperacillin Sod/ Tazobactam Sod 2.25 gm/Sodium Chloride 50 ml @ 100 mls/hr Q6HRS IV Last administered on 04/13/19at 08:20; Start 04/13/19 at 08:00 Vancomycin HCl 1 gm/Sodium Chloride 250 ml @ 250 mls/hr 1X ONCE IV ; Start 04/13/19 at 09:00; Stop 04/13/19 at 09:59 Vancomycin HCl (Vanco Per Pharmacy) 1 each PRN DAILY PRN MC SEE COMMENTS; Start 04/13/19 at 08:15 Dextrose/Sodium Chloride 1,000 ml @ 60 mls/hr [id number] IV ; Start 04/13/19 at 08:30 Allergies Allergies: Coded Allergies: oxycodone (Verified Allergy, Intermediate, Unknown, 04/12/19) ROS Review of System Negative for fever, chills, weight loss, shortness of breath, chest pain, indigestion, hematochezia, melena, and dysuria. Full 14-point review of systems is negative. Physical Exam Physical Examination General: Well-developed, well-nourished black female in no acute distress HEENT: Normocephalic andatraumatic.Temporal arteriespulsatile and nontender. Neck: Supple without bruit, no meningismus Musculoskeletal: Stability:see neurologic. Gait exam:see neurologic. Tone:see neurologic.Strength:see neurologic. Neurological: Mental Status: orientation, memory, attention span/concentration, language, fund of knowledge: only can tell me her name, perseverates. Cranial Nerves:Pupils equal and reactive to light, extraocular movements areintact, visual do are full to confrontation. There is no facial asymmetry. Palate elevates and tongue protrudes in midline. All other cranial related problems are negative except as mentioned before.Reflexes:1+ and symmetric with flexor plantar responses. Bilateral grasp reflexes. Motor:3/5 strength with normal tone and bulk. Coordination and gait:not testable. Sensory:responds to pinprick in all 4 extremities. Vitals VITALS Vital Signs Date Time Temp Pulse Resp B/P (MAP) Pulse Ox O2 Delivery O2 Flow Rate FiO2 04/13/19 07:30 98.0 83 18 178/85 (116) 95 Room Air 98.0 Labs Labs Laboratory Tests Test 04/12/19 12:20 04/12/19 12:55 04/13/19 01:07 04/13/19 04:00 Urine Collection Type U cath Urine Color Yellow Urine Clarity Hazy Urine pH >8.5 Urine Specific [place] 1.015 Urine Protein 100 mg/dL (NEG-TRACE) Urine Glucose (UA) Negative mg/dL (NEG) Urine Ketones (Stick) Negative mg/dL (NEG) Urine Blood Small (NEG) Urine Nitrite Positive (NEG) Urine Bilirubin Negative (NEG) Urine Urobilinogen Dipstick 1.0 mg/dL (0.2 mg/dL) Urine Leukocyte Esterase Large (NEG) White Blood Count 14.4 x10^3/uL (4.0-11.0) 13.1 x10^3/uL (4.0-11.0) Red Blood Count 5.84 x10^6/uL (3.50-5.40) 5.88 x10^6/uL (3.50-5.40) Hemoglobin 15.9 g/dL (12.0-15.5) 15.7 g/dL (12.0-15.5) Hematocrit 48.6 % (36.0-47.0) 49.2 % (36.0-47.0) Mean Corpuscular Volume 83 fL (79-100) 85 fL (79-100) Mean Corpuscular Hemoglobin 27 pg (25-35) 27 pg (25-35) Mean Corpuscular Hemoglobin Concent 33 g/dL (31-37) 31 g/dL (31-37) Red Cell Distribution Width 14.6 % (11.5-14.5) 15.3 % (11.5-14.5) Platelet Count 231 x10^3/uL (140-400) 231 x10^3/uL (140-400) Neutrophils (%) (Auto) 79 % (31-73) 75 % (31-73) Lymphocytes (%) (Auto) 15 % (24-48) 19 % (24-48) Monocytes (%) (Auto) 5 % (0-9) 6 % (0-9) Eosinophils (%) (Auto) 0 % (0-3) 0 % (0-3) Basophils (%) (Auto) 0 % (0-3) 0 % (0-3) Neutrophils # (Auto) 11.4 x10^3/uL (1.8-7.7) 9.8 x10^3/uL (1.8-7.7) Lymphocytes # (Auto) 2.2 x10^3/uL (1.0-4.8) 2.5 x10^3/uL (1.0-4.8) Monocytes # (Auto) 0.8 x10^3/uL (0.0-1.1) 0.7 x10^3/uL (0.0-1.1) Eosinophils # (Auto) 0.0 x10^3/uL (0.0-0.7) 0.1 x10^3/uL (0.0-0.7) Basophils # (Auto) 0.1 x10^3/uL (0.0-0.2) 0.0 x10^3/uL (0.0-0.2) Prothrombin Time 13.9 SEC (11.7-14.0) Prothromb Time International Ratio 1.1 (0.8-1.1) Sodium Level 160 mmol/L (136-145) 161 mmol/L (136-145) Potassium Level 4.2 mmol/L (3.5-5.1) 3.7 mmol/L (3.5-5.1) Chloride Level 119 mmol/L (98-107) 121 mmol/L (98-107) Carbon Dioxide Level 32 mmol/L (21-32) 28 mmol/L (21-32) Anion Gap 9 (6-14) 12 (6-14) Blood Urea Nitrogen 48 mg/dL (7-20) 40 mg/dL (7-20) Creatinine 1.3 mg/dL (0.6-1.0) 1.0 mg/dL (0.6-1.0) Estimated GFR (Cockcroft-Gault) 47.1 63.8 BUN/Creatinine Ratio 37 (6-20) Glucose Level 109 mg/dL (70-99) 110 mg/dL (70-99) Calcium Level 10.0 mg/dL (8.5-10.1) 9.4 mg/dL (8.5-10.1) Magnesium Level 2.7 mg/dL (1.8-2.4) Total Bilirubin 1.3 mg/dL (0.2-1.0) Aspartate Amino Transf (AST/SGOT) 25 U/L (15-37) Alanine Aminotransferase (ALT/SGPT) 19 U/L (14-59) Alkaline Phosphatase 82 U/L (46-116) Ammonia < 10 mcmol/L (11-34) Troponin I Quantitative < 0.017 ng/mL (0.000-0.055) NH-Zpr-T-Type Natriuretic Peptide 218 pg/mL (0-449) Total Protein 7.5 g/dL (6.4-8.2) Albumin 3.9 g/dL (3.4-5.0) Albumin/Globulin Ratio 1.1 (1.0-1.7) Laboratory Tests Test 04/12/19 12:20 04/12/19 12:55 04/13/19 01:07 04/13/19 04:00 Urine Collection Type U cath Urine Color Yellow Urine Clarity Hazy Urine pH >8.5 Urine Specific [place] 1.015 Urine Protein 100 mg/dL (NEG-TRACE) Urine Glucose (UA) Negative mg/dL (NEG) Urine Ketones (Stick) Negative mg/dL (NEG) Urine Blood Small (NEG) Urine Nitrite Positive (NEG) Urine Bilirubin Negative (NEG) Urine Urobilinogen Dipstick 1.0 mg/dL (0.2 mg/dL) Urine Leukocyte Esterase Large (NEG) White Blood Count 14.4 x10^3/uL (4.0-11.0) 13.1 x10^3/uL (4.0-11.0) Red Blood Count 5.84 x10^6/uL (3.50-5.40) 5.88 x10^6/uL (3.50-5.40) Hemoglobin 15.9 g/dL (12.0-15.5) 15.7 g/dL (12.0-15.5) Hematocrit 48.6 % (36.0-47.0) 49.2 % (36.0-47.0) Mean Corpuscular Volume 83 fL (79-100) 85 fL (79-100) Mean Corpuscular Hemoglobin 27 pg (25-35) 27 pg (25-35) Mean Corpuscular Hemoglobin Concent 33 g/dL (31-37) 31 g/dL (31-37) Red Cell Distribution Width 14.6 % (11.5-14.5) 15.3 % (11.5-14.5) Platelet Count 231 x10^3/uL (140-400) 231 x10^3/uL (140-400) Neutrophils (%) (Auto) 79 % (31-73) 75 % (31-73) Lymphocytes (%) (Auto) 15 % (24-48) 19 % (24-48) Monocytes (%) (Auto) 5 % (0-9) 6 % (0-9) Eosinophils (%) (Auto) 0 % (0-3) 0 % (0-3) Basophils (%) (Auto) 0 % (0-3) 0 % (0-3) Neutrophils # (Auto) 11.4 x10^3/uL (1.8-7.7) 9.8 x10^3/uL (1.8-7.7) Lymphocytes # (Auto) 2.2 x10^3/uL (1.0-4.8) 2.5 x10^3/uL (1.0-4.8) Monocytes # (Auto) 0.8 x10^3/uL (0.0-1.1) 0.7 x10^3/uL (0.0-1.1) Eosinophils # (Auto) 0.0 x10^3/uL (0.0-0.7) 0.1 x10^3/uL (0.0-0.7) Basophils # (Auto) 0.1 x10^3/uL (0.0-0.2) 0.0 x10^3/uL (0.0-0.2) Prothrombin Time 13.9 SEC (11.7-14.0) Prothromb Time International Ratio 1.1 (0.8-1.1) Sodium Level 160 mmol/L (136-145) 161 mmol/L (136-145) Potassium Level 4.2 mmol/L (3.5-5.1) 3.7 mmol/L (3.5-5.1) Chloride Level 119 mmol/L (98-107) 121 mmol/L (98-107) Carbon Dioxide Level 32 mmol/L (21-32) 28 mmol/L (21-32) Anion Gap 9 (6-14) 12 (6-14) Blood Urea Nitrogen 48 mg/dL (7-20) 40 mg/dL (7-20) Creatinine 1.3 mg/dL (0.6-1.0) 1.0 mg/dL (0.6-1.0) Estimated GFR (Cockcroft-Gault) 47.1 63.8 BUN/Creatinine Ratio 37 (6-20) Glucose Level 109 mg/dL (70-99) 110 mg/dL (70-99) Calcium Level 10.0 mg/dL (8.5-10.1) 9.4 mg/dL (8.5-10.1) Magnesium Level 2.7 mg/dL (1.8-2.4) Total Bilirubin 1.3 mg/dL (0.2-1.0) Aspartate Amino Transf (AST/SGOT) 25 U/L (15-37) Alanine Aminotransferase (ALT/SGPT) 19 U/L (14-59) Alkaline Phosphatase 82 U/L (46-116) Ammonia < 10 mcmol/L (11-34) Troponin I Quantitative < 0.017 ng/mL (0.000-0.055) MO-Wlm-L-Type Natriuretic Peptide 218 pg/mL (0-449) Total Protein 7.5 g/dL (6.4-8.2) Albumin 3.9 g/dL (3.4-5.0) Albumin/Globulin Ratio 1.1 (1.0-1.7) Images Images CT HEAD WO CONTRAST Date: 04/12/2019 11:51 AM Clinical Indication: Altered mental status Comparison: 10/28/2006. Technique: 5 mm axial tomographic images were obtained of the head without contrast. These were viewed on brain and bone windows. One or more of the following dose reduction techniques were utilized: Automated exposure control (AEC), Adjustment of mA and/or kV according to patient size, Use of iterative reconstruction technique such as ASiR, CT scan done according to ALARA and image gently/image wisely Findings: Moderate generalized cerebral and cerebellar volume loss. Mild nonspecific periventricular hypoattenuation, most commonly seen with chronic small vessel ischemic disease. Calcified atherosclerosis of the bilateral cavernous and paraclinoid internal carotid arteries and intracranial vertebral arteries. No intra- or extra-axial mass or fluid collection. No acute hemorrhage. Dilation of the lateral and third ventricles, slightly out of proportion to the degree of cerebral volume loss. The pickens-white matter junction is normal. The subarachnoid cisterns are patent. The visualized paranasal sinuses are normal. The visualized portions of the orbits and globes are normal. The mastoid air cells are clear. The scout sniper topogram shows no lytic lesion or fracture. Impression: 1. No acute intracranial process. 2. Moderate cerebral volume loss. Mild chronic small vessel ischemic disease. 3. Dilation of the lateral and third ventricles, slightly out of proportion to the degree of cerebral volume loss. This could relate to advanced central atrophy, although normal pressure hydrocephalus could have a similar appearance. Assessment/Plan Assessment/Plan Impression: Metabolic encephalopathy in the setting of severe dementia, patient has been declining and not eating. This may be her terminal illness. Recommendations: Hydration I discussed with patient's son and [id number], if she does not perk up from the hydration, I recommend sending her back to the half-way on comfort care, hospice. They are fully agreeable with this recommendation. Thank you for letting me help with the patient's care. OWEN ELIZABETH MD Apr 13, 2019 09:30
[2019-04-13] MEDS: IV DEXTROSE 5 %-0.2 % NACL 1,000 ML IV SCH ×2 (09:38→23:44)
[2019-04-13] MEDS: ENOXAPARIN 30 MG/0.3 ML SYRINGE. SQ SCH (09:40)
--- NOTE | 2019-04-13 09:40 | PDOC ---
Infectious Disease Note Vital Sign Vital Signs Vital Signs Date Time Temp Pulse Resp B/P (MAP) Pulse Ox O2 Delivery O2 Flow Rate FiO2 04/13/19 07:30 98.0 83 18 178/85 (116) 95 Room Air 98.0 Labs Lab Laboratory Tests Test 04/12/19 12:20 04/12/19 12:55 04/13/19 01:07 04/13/19 04:00 Urine Collection Type U cath Urine Color Yellow Urine Clarity Hazy Urine pH >8.5 Urine Specific [place] 1.015 Urine Protein 100 mg/dL (NEG-TRACE) Urine Glucose (UA) Negative mg/dL (NEG) Urine Ketones (Stick) Negative mg/dL (NEG) Urine Blood Small (NEG) Urine Nitrite Positive (NEG) Urine Bilirubin Negative (NEG) Urine Urobilinogen Dipstick 1.0 mg/dL (0.2 mg/dL) Urine Leukocyte Esterase Large (NEG) White Blood Count 14.4 x10^3/uL (4.0-11.0) 13.1 x10^3/uL (4.0-11.0) Red Blood Count 5.84 x10^6/uL (3.50-5.40) 5.88 x10^6/uL (3.50-5.40) Hemoglobin 15.9 g/dL (12.0-15.5) 15.7 g/dL (12.0-15.5) Hematocrit 48.6 % (36.0-47.0) 49.2 % (36.0-47.0) Mean Corpuscular Volume 83 fL (79-100) 85 fL (79-100) Mean Corpuscular Hemoglobin 27 pg (25-35) 27 pg (25-35) Mean Corpuscular Hemoglobin Concent 33 g/dL (31-37) 31 g/dL (31-37) Red Cell Distribution Width 14.6 % (11.5-14.5) 15.3 % (11.5-14.5) Platelet Count 231 x10^3/uL (140-400) 231 x10^3/uL (140-400) Neutrophils (%) (Auto) 79 % (31-73) 75 % (31-73) Lymphocytes (%) (Auto) 15 % (24-48) 19 % (24-48) Monocytes (%) (Auto) 5 % (0-9) 6 % (0-9) Eosinophils (%) (Auto) 0 % (0-3) 0 % (0-3) Basophils (%) (Auto) 0 % (0-3) 0 % (0-3) Neutrophils # (Auto) 11.4 x10^3/uL (1.8-7.7) 9.8 x10^3/uL (1.8-7.7) Lymphocytes # (Auto) 2.2 x10^3/uL (1.0-4.8) 2.5 x10^3/uL (1.0-4.8) Monocytes # (Auto) 0.8 x10^3/uL (0.0-1.1) 0.7 x10^3/uL (0.0-1.1) Eosinophils # (Auto) 0.0 x10^3/uL (0.0-0.7) 0.1 x10^3/uL (0.0-0.7) Basophils # (Auto) 0.1 x10^3/uL (0.0-0.2) 0.0 x10^3/uL (0.0-0.2) Prothrombin Time 13.9 SEC (11.7-14.0) Prothromb Time International Ratio 1.1 (0.8-1.1) Sodium Level 160 mmol/L (136-145) 161 mmol/L (136-145) Potassium Level 4.2 mmol/L (3.5-5.1) 3.7 mmol/L (3.5-5.1) Chloride Level 119 mmol/L (98-107) 121 mmol/L (98-107) Carbon Dioxide Level 32 mmol/L (21-32) 28 mmol/L (21-32) Anion Gap 9 (6-14) 12 (6-14) Blood Urea Nitrogen 48 mg/dL (7-20) 40 mg/dL (7-20) Creatinine 1.3 mg/dL (0.6-1.0) 1.0 mg/dL (0.6-1.0) Estimated GFR (Cockcroft-Gault) 47.1 63.8 BUN/Creatinine Ratio 37 (6-20) Glucose Level 109 mg/dL (70-99) 110 mg/dL (70-99) Calcium Level 10.0 mg/dL (8.5-10.1) 9.4 mg/dL (8.5-10.1) Magnesium Level 2.7 mg/dL (1.8-2.4) Total Bilirubin 1.3 mg/dL (0.2-1.0) Aspartate Amino Transf (AST/SGOT) 25 U/L (15-37) Alanine Aminotransferase (ALT/SGPT) 19 U/L (14-59) Alkaline Phosphatase 82 U/L (46-116) Ammonia < 10 mcmol/L (11-34) Troponin I Quantitative < 0.017 ng/mL (0.000-0.055) LA-Vok-P-Type Natriuretic Peptide 218 pg/mL (0-449) Total Protein 7.5 g/dL (6.4-8.2) Albumin 3.9 g/dL (3.4-5.0) Albumin/Globulin Ratio 1.1 (1.0-1.7) Micro Microbiology 04/12/19 Blood Culture - Final, Complete Objective Assessment Bacteremia POA 04/12 GNR/GPC 1/2 bottles UTI 04/12 POA Leukocytosis Patchy infiltrates TANESHA - better Dehydration Electrolyte abn HTN ? demetia vs acute illness as unable to answer questions Bacterial overgrowth on tongue Plan Plan of Care Mrs Gudino is from [facility] but no available records - d/w nursing On Vanc and Zosyn - a dose of Rocephin times one. Cont F/u labs and cults Depending on cult results (if not contamination) may need GI eval for source but currently abd is benign Oral care electrolytes per primary Thank you # [id number] NIK ZELAYA MD Apr 13, 2019 09:40
--- NOTE | 2019-04-13 10:57 | PDOC2 ---
CONSULT Date of Consult Date of Consult DATE: 04/13/19 TIME: 10:48 Reason for Consult Reason for Consult: TANESHA AND HIGH NA Referring Physician Referring Physician: CORNEL Identification/Chief Complaint Chief Complaint CONFUSED Source Source: Chart review History of Present Illness Reason for Visit: THIS IS AN 83 YR OLD WITH CONFUSION AND DEHYDRATION. BROUGHT IN BY OK. HAS HX OF DEMENTIA. NOTED TO HAVE MILD TANESHA AND SEVERE HYPERNATREMIA. ALSO NOTED TO HAVE AN UTI. NO CKD HX NOTED. NO NEPHROTOXINS NOTED Past Medical History Cardiovascular: HTN CENTRAL NERVOUS SYSTEM: CVA, Dementia (Alzheimers) GI: GERD Musculoskeletal: low back pain, Osteoarthritis Renal/: No pertinent hx Past Surgical History Past Surgical History: Cataract Removal, Hysterectomy, Other (back) Family History Family History: Hypertension Social History No ALCOHOL: none Drugs: None Current Problem List Problem List Problems Medical Problems: (1) Altered mental status Status: Acute (2) Dehydration Status: Acute (3) Hypernatremia Status: Acute (4) UTI (urinary tract infection) Status: Acute Current Medications Current Medications Current Medications Sodium Chloride 1,000 ml @ 250 mls/hr 1X ONCE IV Last administered on 04/12/19at 12:15; Start 04/12/19 at 12:15; Stop 04/12/19 at 16:14; Status DC Sodium Chloride 500 ml @ 500 mls/hr 1X ONCE IV Last administered on 04/12/19at 13:43; Start 04/12/19 at 12:15; Stop 04/12/19 at 13:14; Status DC Ceftriaxone Sodium (Rocephin) 1 gm 1X ONCE IVP Last administered on 04/12/19at 13:44; Start 04/12/19 at 13:00; Stop 04/12/19 at 13:01; Status DC Ondansetron HCl (Zofran) 4 mg PRN Q8HRS PRN IV NAUSEA/VOMITING; Start 04/12/19 at 14:00; Stop 04/13/19 at 13:59 Sodium Chloride (Normal Saline Flush) 3 ml QSHIFT PRN IV AFTER MEDS AND BLOOD DRAWS; Start 04/12/19 at 20:30 Ondansetron HCl (Zofran) 4 mg PRN Q4HRS PRN IV NAUSEA/VOMITING; Start 04/12/19 at 20:30 Acetaminophen (Tylenol) 650 mg PRN Q4HRS PRN PO TEMP OVER 100.4F OR MILD PAIN; Start 04/12/19 at 20:30 Albuterol Sulfate (Ventolin Neb Soln) 2.5 mg PRN Q4HRS PRN NEB SHORTNESS OF BREATH; Start 04/12/19 at 20:30 Guaifenesin (Robitussin) 200 mg PRN Q4HRS PRN PO COUGH; Start 04/12/19 at 20:30 Lorazepam (Ativan) 0.5 mg PRN Q4HRS PRN PO ANXIETY / AGITATION; Start 04/12/19 at 20:30 Enoxaparin Sodium (Lovenox 30mg Syringe) 30 mg DAILY SQ Last administered on 04/13/19at 09:40; Start 04/13/19 at 09:00 Sodium Chloride 1,000 ml @ 75 mls/hr [id number] IV Last administered on 04/13/19at 03:34; Start 04/13/19 at 03:30; Stop 04/13/19 at 08:16; Status DC Vancomycin HCl 750 mg/Sodium Chloride 250 ml @ 250 mls/hr Q24H ONCE IV ; Start 04/13/19 at 08:00; Stop 04/13/19 at 08:59; Status UNV Piperacillin Sod/ Tazobactam Sod 2.25 gm/Sodium Chloride 50 ml @ 100 mls/hr Q6HRS IV Last administered on 04/13/19at 08:20; Start 04/13/19 at 08:00 Vancomycin HCl 1 gm/Sodium Chloride 250 ml @ 250 mls/hr 1X ONCE IV Last administered on 04/13/19at 09:39; Start 04/13/19 at 09:00; Stop 04/13/19 at 09:59; Status DC Vancomycin HCl (Vanco Per Pharmacy) 1 each PRN DAILY PRN MC SEE COMMENTS; Start 04/13/19 at 08:15 Dextrose/Sodium Chloride 1,000 ml @ 125 mls/hr Q8H IV Last administered on 04/13/19at 09:38; Start 04/13/19 at 08:30 Allergies Allergies: Coded Allergies: oxycodone (Verified Allergy, Intermediate, Unknown, 04/12/19) ROS Review of System UNABLE TO OBTAIN Physical Exam General: Alert, Oriented X3, Cooperative, No acute distress HEENT: Atraumatic, PERRLA Lungs: Clear to auscultation Heart: Regular rate Abdomen: Normal bowel sounds, Soft, No tenderness Skin: No rashes Neuro: Other (CONFUSED) Psych/Mental Status: Other (CONFUSED AFFECT) MUSCULOSKELETAL: No joint tenderness Vitals VITALS Vital Signs Date Time Temp Pulse Resp B/P (MAP) Pulse Ox O2 Delivery O2 Flow Rate FiO2 04/13/19 07:30 98.0 83 18 178/85 (116) 95 Room Air 98.0 Labs Labs Laboratory Tests Test 04/12/19 12:20 04/12/19 12:55 04/13/19 01:07 04/13/19 04:00 Urine Collection Type U cath Urine Color Yellow Urine Clarity Hazy Urine pH >8.5 Urine Specific [place] 1.015 Urine Protein 100 mg/dL (NEG-TRACE) Urine Glucose (UA) Negative mg/dL (NEG) Urine Ketones (Stick) Negative mg/dL (NEG) Urine Blood Small (NEG) Urine Nitrite Positive (NEG) Urine Bilirubin Negative (NEG) Urine Urobilinogen Dipstick 1.0 mg/dL (0.2 mg/dL) Urine Leukocyte Esterase Large (NEG) White Blood Count 14.4 x10^3/uL (4.0-11.0) 13.1 x10^3/uL (4.0-11.0) Red Blood Count 5.84 x10^6/uL (3.50-5.40) 5.88 x10^6/uL (3.50-5.40) Hemoglobin 15.9 g/dL (12.0-15.5) 15.7 g/dL (12.0-15.5) Hematocrit 48.6 % (36.0-47.0) 49.2 % (36.0-47.0) Mean Corpuscular Volume 83 fL (79-100) 85 fL (79-100) Mean Corpuscular Hemoglobin 27 pg (25-35) 27 pg (25-35) Mean Corpuscular Hemoglobin Concent 33 g/dL (31-37) 31 g/dL (31-37) Red Cell Distribution Width 14.6 % (11.5-14.5) 15.3 % (11.5-14.5) Platelet Count 231 x10^3/uL (140-400) 231 x10^3/uL (140-400) Neutrophils (%) (Auto) 79 % (31-73) 75 % (31-73) Lymphocytes (%) (Auto) 15 % (24-48) 19 % (24-48) Monocytes (%) (Auto) 5 % (0-9) 6 % (0-9) Eosinophils (%) (Auto) 0 % (0-3) 0 % (0-3) Basophils (%) (Auto) 0 % (0-3) 0 % (0-3) Neutrophils # (Auto) 11.4 x10^3/uL (1.8-7.7) 9.8 x10^3/uL (1.8-7.7) Lymphocytes # (Auto) 2.2 x10^3/uL (1.0-4.8) 2.5 x10^3/uL (1.0-4.8) Monocytes # (Auto) 0.8 x10^3/uL (0.0-1.1) 0.7 x10^3/uL (0.0-1.1) Eosinophils # (Auto) 0.0 x10^3/uL (0.0-0.7) 0.1 x10^3/uL (0.0-0.7) Basophils # (Auto) 0.1 x10^3/uL (0.0-0.2) 0.0 x10^3/uL (0.0-0.2) Prothrombin Time 13.9 SEC (11.7-14.0) Prothromb Time International Ratio 1.1 (0.8-1.1) Sodium Level 160 mmol/L (136-145) 161 mmol/L (136-145) Potassium Level 4.2 mmol/L (3.5-5.1) 3.7 mmol/L (3.5-5.1) Chloride Level 119 mmol/L (98-107) 121 mmol/L (98-107) Carbon Dioxide Level 32 mmol/L (21-32) 28 mmol/L (21-32) Anion Gap 9 (6-14) 12 (6-14) Blood Urea Nitrogen 48 mg/dL (7-20) 40 mg/dL (7-20) Creatinine 1.3 mg/dL (0.6-1.0) 1.0 mg/dL (0.6-1.0) Estimated GFR (Cockcroft-Gault) 47.1 63.8 BUN/Creatinine Ratio 37 (6-20) Glucose Level 109 mg/dL (70-99) 110 mg/dL (70-99) Calcium Level 10.0 mg/dL (8.5-10.1) 9.4 mg/dL (8.5-10.1) Magnesium Level 2.7 mg/dL (1.8-2.4) Total Bilirubin 1.3 mg/dL (0.2-1.0) Aspartate Amino Transf (AST/SGOT) 25 U/L (15-37) Alanine Aminotransferase (ALT/SGPT) 19 U/L (14-59) Alkaline Phosphatase 82 U/L (46-116) Ammonia < 10 mcmol/L (11-34) Troponin I Quantitative < 0.017 ng/mL (0.000-0.055) UZ-Wxz-Y-Type Natriuretic Peptide 218 pg/mL (0-449) Total Protein 7.5 g/dL (6.4-8.2) Albumin 3.9 g/dL (3.4-5.0) Albumin/Globulin Ratio 1.1 (1.0-1.7) Test 04/13/19 08:35 Sodium Level 161 mmol/L (136-145) Potassium Level 3.6 mmol/L (3.5-5.1) Chloride Level 120 mmol/L (98-107) Carbon Dioxide Level 30 mmol/L (21-32) Anion Gap 11 (6-14) Blood Urea Nitrogen 35 mg/dL (7-20) Creatinine 1.1 mg/dL (0.6-1.0) Estimated GFR (Cockcroft-Gault) 57.1 Glucose Level 101 mg/dL (70-99) Calcium Level 9.7 mg/dL (8.5-10.1) Laboratory Tests Test 04/12/19 12:20 04/12/19 12:55 04/13/19 01:07 04/13/19 04:00 Urine Collection Type U cath Urine Color Yellow Urine Clarity Hazy Urine pH >8.5 Urine Specific [place] 1.015 Urine Protein 100 mg/dL (NEG-TRACE) Urine Glucose (UA) Negative mg/dL (NEG) Urine Ketones (Stick) Negative mg/dL (NEG) Urine Blood Small (NEG) Urine Nitrite Positive (NEG) Urine Bilirubin Negative (NEG) Urine Urobilinogen Dipstick 1.0 mg/dL (0.2 mg/dL) Urine Leukocyte Esterase Large (NEG) White Blood Count 14.4 x10^3/uL (4.0-11.0) 13.1 x10^3/uL (4.0-11.0) Red Blood Count 5.84 x10^6/uL (3.50-5.40) 5.88 x10^6/uL (3.50-5.40) Hemoglobin 15.9 g/dL (12.0-15.5) 15.7 g/dL (12.0-15.5) Hematocrit 48.6 % (36.0-47.0) 49.2 % (36.0-47.0) Mean Corpuscular Volume 83 fL (79-100) 85 fL (79-100) Mean Corpuscular Hemoglobin 27 pg (25-35) 27 pg (25-35) Mean Corpuscular Hemoglobin Concent 33 g/dL (31-37) 31 g/dL (31-37) Red Cell Distribution Width 14.6 % (11.5-14.5) 15.3 % (11.5-14.5) Platelet Count 231 x10^3/uL (140-400) 231 x10^3/uL (140-400) Neutrophils (%) (Auto) 79 % (31-73) 75 % (31-73) Lymphocytes (%) (Auto) 15 % (24-48) 19 % (24-48) Monocytes (%) (Auto) 5 % (0-9) 6 % (0-9) Eosinophils (%) (Auto) 0 % (0-3) 0 % (0-3) Basophils (%) (Auto) 0 % (0-3) 0 % (0-3) Neutrophils # (Auto) 11.4 x10^3/uL (1.8-7.7) 9.8 x10^3/uL (1.8-7.7) Lymphocytes # (Auto) 2.2 x10^3/uL (1.0-4.8) 2.5 x10^3/uL (1.0-4.8) Monocytes # (Auto) 0.8 x10^3/uL (0.0-1.1) 0.7 x10^3/uL (0.0-1.1) Eosinophils # (Auto) 0.0 x10^3/uL (0.0-0.7) 0.1 x10^3/uL (0.0-0.7) Basophils # (Auto) 0.1 x10^3/uL (0.0-0.2) 0.0 x10^3/uL (0.0-0.2) Prothrombin Time 13.9 SEC (11.7-14.0) Prothromb Time International Ratio 1.1 (0.8-1.1) Sodium Level 160 mmol/L (136-145) 161 mmol/L (136-145) Potassium Level 4.2 mmol/L (3.5-5.1) 3.7 mmol/L (3.5-5.1) Chloride Level 119 mmol/L (98-107) 121 mmol/L (98-107) Carbon Dioxide Level 32 mmol/L (21-32) 28 mmol/L (21-32) Anion Gap 9 (6-14) 12 (6-14) Blood Urea Nitrogen 48 mg/dL (7-20) 40 mg/dL (7-20) Creatinine 1.3 mg/dL (0.6-1.0) 1.0 mg/dL (0.6-1.0) Estimated GFR (Cockcroft-Gault) 47.1 63.8 BUN/Creatinine Ratio 37 (6-20) Glucose Level 109 mg/dL (70-99) 110 mg/dL (70-99) Calcium Level 10.0 mg/dL (8.5-10.1) 9.4 mg/dL (8.5-10.1) Magnesium Level 2.7 mg/dL (1.8-2.4) Total Bilirubin 1.3 mg/dL (0.2-1.0) Aspartate Amino Transf (AST/SGOT) 25 U/L (15-37) Alanine Aminotransferase (ALT/SGPT) 19 U/L (14-59) Alkaline Phosphatase 82 U/L (46-116) Ammonia < 10 mcmol/L (11-34) Troponin I Quantitative < 0.017 ng/mL (0.000-0.055) EB-Sel-F-Type Natriuretic Peptide 218 pg/mL (0-449) Total Protein 7.5 g/dL (6.4-8.2) Albumin 3.9 g/dL (3.4-5.0) Albumin/Globulin Ratio 1.1 (1.0-1.7) Test 04/13/19 08:35 Sodium Level 161 mmol/L (136-145) Potassium Level 3.6 mmol/L (3.5-5.1) Chloride Level 120 mmol/L (98-107) Carbon Dioxide Level 30 mmol/L (21-32) Anion Gap 11 (6-14) Blood Urea Nitrogen 35 mg/dL (7-20) Creatinine 1.1 mg/dL (0.6-1.0) Estimated GFR (Cockcroft-Gault) 57.1 Glucose Level 101 mg/dL (70-99) Calcium Level 9.7 mg/dL (8.5-10.1) Assessment/Plan Assessment/Plan IMP DEHYDRATION HYPERNATREMIA MET ENCEPHALOPATHY DEMENTIA URINARY TRACT INFECTION LEUCOCYTOSIS PLAN ANTIBIOTICS HYDRATION FREE WATER WILL FOLLOW BRANDON WALLS MD Apr 13, 2019 10:57
[2019-04-13 11:23] VITALS: BP 162/86
--- NOTE | 2019-04-13 12:01 | CONS ---
DATE OF CONSULTATION: 04/13/2019 LOCATION: The patient's room is 660. REQUESTING PHYSICIAN: Dr. Almodovar. REASON FOR CONSULTATION: Questionable sepsis. HISTORY OF PRESENT ILLNESS: The patient is an 83-year-old female who apparently comes from [email or web address] however, I cannot find any accompanying records. According to the ER note, she presented from the nursing facility with altered mental status, concerns for dehydration and abnormal lab results. She was apparently nonverbal on her arrival, she has been afebrile since her presentation. However, she had a white count of 14.4 on arrival, her sodium was 160. Creatinine was 1.3. Ammonia was less than 10. Urinalysis was collected and appears consistent with a urinary tract infection. CT scan of the head was performed, showed no acute intracranial process. She had moderate cerebral volume loss, dilation of the lateral and third ventricles. Chest x-ray showed patchy left basilar opacity and low lung volumes and right basilar linear atelectasis. She was given a dose of ceftriaxone and then changed to vancomycin and Zosyn. Currently, the patient is sitting upright in bed and is asking for some apparent cream. PAST MEDICAL HISTORY: According to the notes, positive for hypertension, otherwise unknown. PAST SURGICAL HISTORY: Unknown. REVIEW OF SYSTEMS: Unobtainable. ALLERGIES: LISTED OXYCODONE. SOCIAL HISTORY: Apparently, she is at nursing facility, uncertain of tobacco history. FAMILY HISTORY: Unknown. CURRENT MEDICATIONS: Include vancomycin and Zosyn, Rocephin x 1, Lovenox. Other meds are available and reviewed in the chart. PHYSICAL EXAMINATION: VITAL SIGNS: She is afebrile, temperature is 98, pulse 83, respirations 18, blood pressure 178/85, satting 95% on room air. CONSTITUTIONAL: She is alert. She is in no acute distress. She has normal conjunctivae. She did open her mouth. She has some bacterial overgrowth on her tongue. NECK: Supple, no JVD. LUNGS: Decreased in the bases, no wheeze. HEART: S1, S2. ABDOMEN: Soft, nontender, no guarding or rebound. EXTREMITIES: Her legs were contracted, however, passive range of motion. They were extended without complications. She has no lower extremity edema, no clubbing. SKIN: Warm to touch without signs of rash. NEUROLOGIC: She was alert, but for all intents and purposes nonverbal. LABORATORY DATA: White count 13.1, hemoglobin 15.7, platelets of 231, neutrophils 75, lymphs are 19. Glucose of 110. Creatinine of 1, improved from 1.3, sodium 161. Normal liver function study tests. Normal troponin. Urinalysis concerning for urinary tract infection. Blood cultures reviewed, positive for 1 out of 2 bottles with gram-negative rods and gram-positive cocci from the 12th. Radiology reviewed in history of present illness. IMPRESSION: 1. Bacteremia, present on admission on the with gram-negative rods, gram-positive cocci in 1 of 2 bottles. 2. Urinary tract infection present on admission. 3. Leukocytosis. 4. Patchy infiltrates. 5. Acute kidney injury is better. 6. Dehydration. 7. Electrolyte abnormalities. 8. Hypertension. 9. Questionable dementia versus acute illness as unable to answer questions. 10. Bacterial overgrowth on her tongue. RECOMMENDATIONS: Again, the patient is reportedly from [place] but there are no available records and I did discuss with nursing and looked through her chart. For now, we will continue vancomycin and Zosyn. She did get a dose of Rocephin x 1. Follow up labs and cultures. Depending on culture results if this is not a contamination from her bloodstream, she may need a GI evaluation for her source of bacteremia, but currently her abdomen is benign. She needs oral care. Electrolytes per primary. Thank you for allowing me to participate in the patient's care. Should you have any questions, please do not hesitate to contact me. NIK ZELAYA MD DR: JOESPH/sandie JOB#: [id number] / [id number] IFTIKHAR
[2019-04-13] MEDS: VANCOMYCIN PER PHARMACY MC PRN ×2 (12:13→18:11)
[2019-04-13 12:41] LABS: CALCIUM 9.3 mg/dL (8.5-10.1); CREATININE 0.9 mg/dL (0.6-1.0); POTASSIUM 4.1 mmol/L (3.5-5.1)
--- NOTE | 2019-04-13 14:06 | NUR ---
SS following for discharge planning. SS reviewed pt chart. Pt is from [facility], ; fax [phone]. SS contacted [facility] and verified that pt is a LTC resident from there facility and is able to return when medically stable for discharge. SS will continue to follow for discharge planning.
[2019-04-13] MEDS ORDERED: hydrALAZINE 20 MG/ML VIAL. IVP PRN (14:15)
[2019-04-13 15:11] VITALS: BP 157/67
[2019-04-13 16:54] LABS: CALCIUM 9.4 mg/dL (8.5-10.1); CREATININE 1.1 mg/dL (0.6-1.0); GFR 57.1; POTASSIUM 3.3 mmol/L (3.5-5.1)
--- NOTE | 2019-04-13 17:10 | RAD ---
Examination: CT ABDOMEN PELVIS WO CONTRAST History: Sepsis Comparison/Correlation: None Findings: Axial images of the abdomen and pelvis were obtained without contrast. Sagittal and coronal reformatted images were provided. Interstitial thickening of the lung bases noted. Minimal right medial basilar linear atelectasis or scarring is present. Numerous small calculi present within the gallbladder. No biliary dilatation. Liver is unremarkable. Spleen is normal. Pancreas is unremarkable. Nodular appearance of the adrenal glands is noted. Left medial lower breast mass is present measuring 2.1 cm x 1.7 cm on axial image 8. This abuts the chest wall. Hounsfield units of 46 noted. Nonobstructive punctate right renal inferior pole calyceal calculus is present. There is no right or left hydronephrosis. No ascites or loculated collections. No bowel obstruction. Infrarenal abdominal aortic aneurysm with diameter 3 cm noted. Diverticulosis of the colon is present. Moderate quantity of stool is present in the colon. No inflammatory changes about the cecum identified. No ascites or pelvic free fluid. Minimal gas is present within the urinary bladder. Rods and screws are noted from L2 to L5. Laminectomy defects appear to present although streak artifact limits evaluation. Impression: Diverticulosis. Cholelithiasis without findings of cholecystitis or biliary dilatation. Minimal right costophrenic sulcus atelectasis and/or scarring. Nonobstructive right renal calculus. Left breast mass which abuts the chest wall musculature. Correlate with mammography and ultrasound exam of the left breast. Infrarenal abdominal aortic effusion. PQRS Compliance Statement: One or more of the following individualized dose reduction techniques were utilized for this examination: 1. Automated exposure control 2. Adjustment of the mA and/or kV according to patient size 3. Use of iterative reconstruction technique Electronically signed by: Kai Buenrostro MD (04/13/2019 5:07 PM) [facility]
--- NOTE | 2019-04-13 18:13 | NUR ---
Pharmacy Vancomycin Dosing Note S:Consulted to monitor and dose vancomycin started 04/13/19. O:EVANS BELCHER is a 83 year old F with Sepsis UTI . Height: 5 feet, 4 inches Weight: 47.715242 kg Depue Body Weight: 54.70 Adjusted Body Weight: 51.86 Dosing Weight: Actual Other Antibiotics: ZOSYN LABS: Last BUN: Last Creatinine: 1.1 Creatinine Clearance: 28 mL/min Last WBC: 13.1 Last Procalcitonin: Tmax (past 24 hours): 98.8 Microbiology: I/O: Drug Levels: Last level: on at Last dose given 04/13/19 at 1000 Vancomycin Dosing: Loading Dose: 1000 mg x1 Dosing Weight: Actual Target Trough: 15-20 A: Based on: WEIGHT AND RENAL FUNCTION, VANCOMYCIN 1GM IV BOLUS GIVEN, P: 1. Begin Vancomycin 750 mg IV q24h 2. Follow up Trough level on 04/15/19 at 0930 3. Pharmacy will continue to monitor, follow and adjust therapy as needed. BERNABE LAKHANI [facility], 04/13/19 [id number]
[2019-04-13 19:35] VITALS: BP 167/79
[2019-04-13 23:35] VITALS: BP 164/81
[2019-04-14] MEDS: IV DEXTROSE 5 %-0.2 % NACL 1,000 ML IV SCH ×3 (01:16→17:16)
[2019-04-14] MEDS ORDERED: MAGN400O7 PO (02:54)
[2019-04-14] MEDS ORDERED: ASPI81TA59 PO (02:54)
[2019-04-14] MEDS ORDERED: POLY17PO29 PO (02:54)
[2019-04-14] MEDS ORDERED: GABA600T7 PO (02:54)
[2019-04-14] MEDS ORDERED: DOCU100C28 PO (02:54)
[2019-04-14] MEDS ORDERED: GABA300C18 PO (02:54)
[2019-04-14] MEDS ORDERED: MEMA28CA PO (02:54)
[2019-04-14] MEDS ORDERED: FURO20TA3 PO (02:54)
[2019-04-14] MEDS ORDERED: AMLO5TAB10 PO (02:54)
[2019-04-14] MEDS ORDERED: ACET325S PO (02:54)
[2019-04-14] MEDS ORDERED: DONE10TA61 PO (02:54)
[2019-04-14 03:35] VITALS: BP 154/88
[2019-04-14] MEDS: PIPERACILLIN/TAZOBACTAM 2.25 GM in IV NORMAL SALINE 50ML 50 ML IV SCH ×3 (05:42→18:28)
[2019-04-14 06:07] LABS: BASO # 0.1 x10^3/uL (0.0-0.2); BASO % 1 % (0-3); EOS # 0.2 x10^3/uL (0.0-0.7); EOS % 2 % (0-3); HEMATOCRIT 45.1 % (36.0-47.0); HEMOGLOBIN 14.6 g/dL (12.0-15.5); LYMPH % 20 % (24-48); MEAN CORPUSCULAR HEMOGLOBIN 27 pg (25-35); MEAN CORPUSCULAR HGB CONC 32 g/dL (31-37); MEAN CORPUSCULAR VOLUME 84 fL (79-100); MONO # 0.7 x10^3/uL (0.0-1.1); MONO % 7 % (0-9); NEUT # 7.1 x10^3/uL (1.8-7.7); NEUT % 70 % (31-73); PLATELET COUNT 188 x10^3/uL (140-400); RED BLOOD COUNT 5.37 x10^6/uL (3.50-5.40); RED CELL DISTRIBUTION WIDTH 14.7 % (11.5-14.5); WHITE BLOOD COUNT 10.1 x10^3/uL (4.0-11.0)
[2019-04-14 06:24] LABS: CALCIUM 9.3 mg/dL (8.5-10.1); GFR 63.8
[2019-04-14 07:00] VITALS: BP 152/83
[2019-04-14] MEDS: ENOXAPARIN 30 MG/0.3 ML SYRINGE. SQ SCH (08:18)
--- NOTE | 2019-04-14 08:35 | PDOC ---
Infectious Disease Note Subjective Subjective Denies F/C/S/N/V/D/SOA/cough ROS ROS ? reliability Vital Sign Vital Signs Vital Signs Date Time Temp Pulse Resp B/P (MAP) Pulse Ox O2 Delivery O2 Flow Rate FiO2 04/14/19 03:35 97.6 70 18 154/88 (110) 94 Room Air 97.6 Physical Exam PHYSICAL EXAM CONSTITUTIONAL: She is alert. Coop She is in no acute distress. HEENT: She has normal conjunctivae. She did open her mouth. She has some bacterial overgrowth on her tongue. NECK: Supple, no JVD. LUNGS: Decreased in the bases, no wheeze. HEART: S1, S2. ABDOMEN: Soft, nontender, no guarding or rebound. EXTREMITIES: Her legs were contracted, however, passive range of motion. They were extended without complications. She has no lower extremity edema, no clubbing. SKIN: Warm to touch without signs of rash. NEUROLOGIC: She was alert and followed simple commands Labs Lab Laboratory Tests Test 04/13/19 08:35 04/13/19 11:55 04/13/19 16:10 04/14/19 04:35 Sodium Level 161 mmol/L (136-145) 161 mmol/L (136-145) 158 mmol/L (136-145) 156 mmol/L (136-145) Potassium Level 3.6 mmol/L (3.5-5.1) 4.1 mmol/L (3.5-5.1) 3.3 mmol/L (3.5-5.1) 3.0 mmol/L (3.5-5.1) Chloride Level 120 mmol/L (98-107) 121 mmol/L (98-107) 120 mmol/L (98-107) 119 mmol/L (98-107) Carbon Dioxide Level 30 mmol/L (21-32) 28 mmol/L (21-32) 27 mmol/L (21-32) 25 mmol/L (21-32) Anion Gap 11 (6-14) 12 (6-14) 11 (6-14) 12 (6-14) Blood Urea Nitrogen 35 mg/dL (7-20) 34 mg/dL (7-20) 31 mg/dL (7-20) 22 mg/dL (7-20) Creatinine 1.1 mg/dL (0.6-1.0) 0.9 mg/dL (0.6-1.0) 1.1 mg/dL (0.6-1.0) 1.0 mg/dL (0.6-1.0) Estimated GFR (Cockcroft-Gault) 57.1 72.0 57.1 63.8 Glucose Level 101 mg/dL (70-99) 110 mg/dL (70-99) 114 mg/dL (70-99) 152 mg/dL (70-99) Calcium Level 9.7 mg/dL (8.5-10.1) 9.3 mg/dL (8.5-10.1) 9.4 mg/dL (8.5-10.1) 9.3 mg/dL (8.5-10.1) White Blood Count 10.1 x10^3/uL (4.0-11.0) Red Blood Count 5.37 x10^6/uL (3.50-5.40) Hemoglobin 14.6 g/dL (12.0-15.5) Hematocrit 45.1 % (36.0-47.0) Mean Corpuscular Volume 84 fL (79-100) Mean Corpuscular Hemoglobin 27 pg (25-35) Mean Corpuscular Hemoglobin Concent 32 g/dL (31-37) Red Cell Distribution Width 14.7 % (11.5-14.5) Platelet Count 188 x10^3/uL (140-400) Neutrophils (%) (Auto) 70 % (31-73) Lymphocytes (%) (Auto) 20 % (24-48) Monocytes (%) (Auto) 7 % (0-9) Eosinophils (%) (Auto) 2 % (0-3) Basophils (%) (Auto) 1 % (0-3) Neutrophils # (Auto) 7.1 x10^3/uL (1.8-7.7) Lymphocytes # (Auto) 2.0 x10^3/uL (1.0-4.8) Monocytes # (Auto) 0.7 x10^3/uL (0.0-1.1) Eosinophils # (Auto) 0.2 x10^3/uL (0.0-0.7) Basophils # (Auto) 0.1 x10^3/uL (0.0-0.2) Micro IMPRESSION: The heart is not enlarged. Mediastinal and hilar contours are stable. Mild left lung base patchy airspace opacities likely atelectasis. Trace left pleural effusion. No pneumothorax. Microbiology 04/12/19 Blood Culture - Final, Complete Objective Assessment Bacteremia POA 04/12 GNR/GPC 1/2 bottles UTI 04/12 POA Leukocytosis - better Patchy infiltrates TANESHA - better Dehydration Electrolyte abn - better HTN ? demetia vs acute illness Bacterial overgrowth on tongue Plan Plan of Care Mrs Gudino is from [place] but no available records - d/w nursing Cont Vanc and Zosyn - a dose of Rocephin times one. F/u labs and cults Depending on cult results (if not contamination) may need GI eval for source but currently abd is benign Oral care electrolytes per primary NIK ZELAYA MD Apr 14, 2019 08:34
--- NOTE | 2019-04-14 10:22 | PDOC ---
PROGRESS NOTES Assessment Problems Medical Problems: (1) Altered mental status Status: Acute (2) Dehydration Status: Acute (3) Hypernatremia Status: Acute (4) UTI (urinary tract infection) Status: Acute Metabolic encephalopathy in the setting of severe dementia, patient has been declining and not eating. This may be her terminal illness. Recommendations: Hydration I discussed with patient's son and [id number], if she does not perk up from the hydration, I recommend sending her back to the halfway on comfort care, hospice. They are fully agreeable with this recommendation. Objective Vital Signs Date Time Temp Pulse Resp B/P (MAP) Pulse Ox O2 Delivery O2 Flow Rate FiO2 04/14/19 07:00 98.1 60 16 152/83 (106) 94 Room Air 98.1 Intake and Output 04/14/19 07:00 Intake Total 0 ml Balance 0 ml Intake Oral 0 ml # Voids 4 PHYSICAL EXAM Alert. Eyes open, nonverbal, does not follow commands. PERRL. EOMI. CN: no focal findings. Muscle tone: [place]. Muscle strength: 3/5 DTR: 1+ Bilateral grass reflexes Plantar reflex: flexor Gait: not examined in bed. Sensory exam: not cooperative. Cerebellar: not cooperative Review of Relevant I have reviewed the following items shalini (where applicable) has been applied. Labs Laboratory Tests Test 04/12/19 12:20 04/12/19 12:55 04/13/19 01:07 04/13/19 04:00 Urine Collection Type U cath Urine Color Yellow Urine Clarity Hazy Urine pH >8.5 Urine Specific Mobile 1.015 Urine Protein 100 mg/dL (NEG-TRACE) Urine Glucose (UA) Negative mg/dL (NEG) Urine Ketones (Stick) Negative mg/dL (NEG) Urine Blood Small (NEG) Urine Nitrite Positive (NEG) Urine Bilirubin Negative (NEG) Urine Urobilinogen Dipstick 1.0 mg/dL (0.2 mg/dL) Urine Leukocyte Esterase Large (NEG) White Blood Count 14.4 x10^3/uL (4.0-11.0) 13.1 x10^3/uL (4.0-11.0) Red Blood Count 5.84 x10^6/uL (3.50-5.40) 5.88 x10^6/uL (3.50-5.40) Hemoglobin 15.9 g/dL (12.0-15.5) 15.7 g/dL (12.0-15.5) Hematocrit 48.6 % (36.0-47.0) 49.2 % (36.0-47.0) Mean Corpuscular Volume 83 fL (79-100) 85 fL (79-100) Mean Corpuscular Hemoglobin 27 pg (25-35) 27 pg (25-35) Mean Corpuscular Hemoglobin Concent 33 g/dL (31-37) 31 g/dL (31-37) Red Cell Distribution Width 14.6 % (11.5-14.5) 15.3 % (11.5-14.5) Platelet Count 231 x10^3/uL (140-400) 231 x10^3/uL (140-400) Neutrophils (%) (Auto) 79 % (31-73) 75 % (31-73) Lymphocytes (%) (Auto) 15 % (24-48) 19 % (24-48) Monocytes (%) (Auto) 5 % (0-9) 6 % (0-9) Eosinophils (%) (Auto) 0 % (0-3) 0 % (0-3) Basophils (%) (Auto) 0 % (0-3) 0 % (0-3) Neutrophils # (Auto) 11.4 x10^3/uL (1.8-7.7) 9.8 x10^3/uL (1.8-7.7) Lymphocytes # (Auto) 2.2 x10^3/uL (1.0-4.8) 2.5 x10^3/uL (1.0-4.8) Monocytes # (Auto) 0.8 x10^3/uL (0.0-1.1) 0.7 x10^3/uL (0.0-1.1) Eosinophils # (Auto) 0.0 x10^3/uL (0.0-0.7) 0.1 x10^3/uL (0.0-0.7) Basophils # (Auto) 0.1 x10^3/uL (0.0-0.2) 0.0 x10^3/uL (0.0-0.2) Prothrombin Time 13.9 SEC (11.7-14.0) Prothromb Time International Ratio 1.1 (0.8-1.1) Sodium Level 160 mmol/L (136-145) 161 mmol/L (136-145) Potassium Level 4.2 mmol/L (3.5-5.1) 3.7 mmol/L (3.5-5.1) Chloride Level 119 mmol/L (98-107) 121 mmol/L (98-107) Carbon Dioxide Level 32 mmol/L (21-32) 28 mmol/L (21-32) Anion Gap 9 (6-14) 12 (6-14) Blood Urea Nitrogen 48 mg/dL (7-20) 40 mg/dL (7-20) Creatinine 1.3 mg/dL (0.6-1.0) 1.0 mg/dL (0.6-1.0) Estimated GFR (Cockcroft-Gault) 47.1 63.8 BUN/Creatinine Ratio 37 (6-20) Glucose Level 109 mg/dL (70-99) 110 mg/dL (70-99) Calcium Level 10.0 mg/dL (8.5-10.1) 9.4 mg/dL (8.5-10.1) Magnesium Level 2.7 mg/dL (1.8-2.4) Total Bilirubin 1.3 mg/dL (0.2-1.0) Aspartate Amino Transf (AST/SGOT) 25 U/L (15-37) Alanine Aminotransferase (ALT/SGPT) 19 U/L (14-59) Alkaline Phosphatase 82 U/L (46-116) Ammonia < 10 mcmol/L (11-34) Troponin I Quantitative < 0.017 ng/mL (0.000-0.055) ER-Klm-J-Type Natriuretic Peptide 218 pg/mL (0-449) Total Protein 7.5 g/dL (6.4-8.2) Albumin 3.9 g/dL (3.4-5.0) Albumin/Globulin Ratio 1.1 (1.0-1.7) Test 04/13/19 08:35 04/13/19 11:55 04/13/19 16:10 04/14/19 04:35 Sodium Level 161 mmol/L (136-145) 161 mmol/L (136-145) 158 mmol/L (136-145) 156 mmol/L (136-145) Potassium Level 3.6 mmol/L (3.5-5.1) 4.1 mmol/L (3.5-5.1) 3.3 mmol/L (3.5-5.1) 3.0 mmol/L (3.5-5.1) Chloride Level 120 mmol/L (98-107) 121 mmol/L (98-107) 120 mmol/L (98-107) 119 mmol/L (98-107) Carbon Dioxide Level 30 mmol/L (21-32) 28 mmol/L (21-32) 27 mmol/L (21-32) 25 mmol/L (21-32) Anion Gap 11 (6-14) 12 (6-14) 11 (6-14) 12 (6-14) Blood Urea Nitrogen 35 mg/dL (7-20) 34 mg/dL (7-20) 31 mg/dL (7-20) 22 mg/dL (7-20) Creatinine 1.1 mg/dL (0.6-1.0) 0.9 mg/dL (0.6-1.0) 1.1 mg/dL (0.6-1.0) 1.0 mg/dL (0.6-1.0) Estimated GFR (Cockcroft-Gault) 57.1 72.0 57.1 63.8 Glucose Level 101 mg/dL (70-99) 110 mg/dL (70-99) 114 mg/dL (70-99) 152 mg/dL (70-99) Calcium Level 9.7 mg/dL (8.5-10.1) 9.3 mg/dL (8.5-10.1) 9.4 mg/dL (8.5-10.1) 9.3 mg/dL (8.5-10.1) White Blood Count 10.1 x10^3/uL (4.0-11.0) Red Blood Count 5.37 x10^6/uL (3.50-5.40) Hemoglobin 14.6 g/dL (12.0-15.5) Hematocrit 45.1 % (36.0-47.0) Mean Corpuscular Volume 84 fL (79-100) Mean Corpuscular Hemoglobin 27 pg (25-35) Mean Corpuscular Hemoglobin Concent 32 g/dL (31-37) Red Cell Distribution Width 14.7 % (11.5-14.5) Platelet Count 188 x10^3/uL (140-400) Neutrophils (%) (Auto) 70 % (31-73) Lymphocytes (%) (Auto) 20 % (24-48) Monocytes (%) (Auto) 7 % (0-9) Eosinophils (%) (Auto) 2 % (0-3) Basophils (%) (Auto) 1 % (0-3) Neutrophils # (Auto) 7.1 x10^3/uL (1.8-7.7) Lymphocytes # (Auto) 2.0 x10^3/uL (1.0-4.8) Monocytes # (Auto) 0.7 x10^3/uL (0.0-1.1) Eosinophils # (Auto) 0.2 x10^3/uL (0.0-0.7) Basophils # (Auto) 0.1 x10^3/uL (0.0-0.2) Laboratory Tests Test 04/13/19 11:55 04/13/19 16:10 04/14/19 04:35 Sodium Level 161 mmol/L (136-145) 158 mmol/L (136-145) 156 mmol/L (136-145) Potassium Level 4.1 mmol/L (3.5-5.1) 3.3 mmol/L (3.5-5.1) 3.0 mmol/L (3.5-5.1) Chloride Level 121 mmol/L (98-107) 120 mmol/L (98-107) 119 mmol/L (98-107) Carbon Dioxide Level 28 mmol/L (21-32) 27 mmol/L (21-32) 25 mmol/L (21-32) Anion Gap 12 (6-14) 11 (6-14) 12 (6-14) Blood Urea Nitrogen 34 mg/dL (7-20) 31 mg/dL (7-20) 22 mg/dL (7-20) Creatinine 0.9 mg/dL (0.6-1.0) 1.1 mg/dL (0.6-1.0) 1.0 mg/dL (0.6-1.0) Estimated GFR (Cockcroft-Gault) 72.0 57.1 63.8 Glucose Level 110 mg/dL (70-99) 114 mg/dL (70-99) 152 mg/dL (70-99) Calcium Level 9.3 mg/dL (8.5-10.1) 9.4 mg/dL (8.5-10.1) 9.3 mg/dL (8.5-10.1) White Blood Count 10.1 x10^3/uL (4.0-11.0) Red Blood Count 5.37 x10^6/uL (3.50-5.40) Hemoglobin 14.6 g/dL (12.0-15.5) Hematocrit 45.1 % (36.0-47.0) Mean Corpuscular Volume 84 fL (79-100) Mean Corpuscular Hemoglobin 27 pg (25-35) Mean Corpuscular Hemoglobin Concent 32 g/dL (31-37) Red Cell Distribution Width 14.7 % (11.5-14.5) Platelet Count 188 x10^3/uL (140-400) Neutrophils (%) (Auto) 70 % (31-73) Lymphocytes (%) (Auto) 20 % (24-48) Monocytes (%) (Auto) 7 % (0-9) Eosinophils (%) (Auto) 2 % (0-3) Basophils (%) (Auto) 1 % (0-3) Neutrophils # (Auto) 7.1 x10^3/uL (1.8-7.7) Lymphocytes # (Auto) 2.0 x10^3/uL (1.0-4.8) Monocytes # (Auto) 0.7 x10^3/uL (0.0-1.1) Eosinophils # (Auto) 0.2 x10^3/uL (0.0-0.7) Basophils # (Auto) 0.1 x10^3/uL (0.0-0.2) Microbiology 04/13/19 Blood Culture - Preliminary, Resulted NO GROWTH AFTER 1 DAY Medications Current Medications Sodium Chloride 1,000 ml @ 250 mls/hr 1X ONCE IV Last administered on 04/12/19at 12:15; Start 04/12/19 at 12:15; Stop 04/12/19 at 16:14; Status DC Sodium Chloride 500 ml @ 500 mls/hr 1X ONCE IV Last administered on 04/12/19at 13:43; Start 04/12/19 at 12:15; Stop 04/12/19 at 13:14; Status DC Ceftriaxone Sodium (Rocephin) 1 gm 1X ONCE IVP Last administered on 04/12/19at 13:44; Start 04/12/19 at 13:00; Stop 04/12/19 at 13:01; Status DC Ondansetron HCl (Zofran) 4 mg PRN Q8HRS PRN IV NAUSEA/VOMITING; Start 04/12/19 at 14:00; Stop 04/13/19 at 13:59; Status DC Sodium Chloride (Normal Saline Flush) 3 ml QSHIFT PRN IV AFTER MEDS AND BLOOD DRAWS; Start 04/12/19 at 20:30 Ondansetron HCl (Zofran) 4 mg PRN Q4HRS PRN IV NAUSEA/VOMITING; Start 04/12/19 at 20:30 Acetaminophen (Tylenol) 650 mg PRN Q4HRS PRN PO TEMP OVER 100.4F OR MILD PAIN; Start 04/12/19 at 20:30 Albuterol Sulfate (Ventolin Neb Soln) 2.5 mg PRN Q4HRS PRN NEB SHORTNESS OF BREATH; Start 04/12/19 at 20:30 Guaifenesin (Robitussin) 200 mg PRN Q4HRS PRN PO COUGH; Start 04/12/19 at 20:30 Lorazepam (Ativan) 0.5 mg PRN Q4HRS PRN PO ANXIETY / AGITATION; Start 04/12/19 at 20:30 Enoxaparin Sodium (Lovenox 30mg Syringe) 30 mg DAILY SQ Last administered on 04/14/19at 08:18; Start 04/13/19 at 09:00 Sodium Chloride 1,000 ml @ 75 mls/hr [id number] IV Last administered on 04/13/19at 03:34; Start 04/13/19 at 03:30; Stop 04/13/19 at 08:16; Status DC Vancomycin HCl 750 mg/Sodium Chloride 250 ml @ 250 mls/hr Q24H ONCE IV ; Start 04/13/19 at 08:00; Stop 04/13/19 at 08:59; Status UNV Piperacillin Sod/ Tazobactam Sod 2.25 gm/Sodium Chloride 50 ml @ 100 mls/hr Q6HRS IV Last administered on 04/14/19at 05:42; Start 04/13/19 at 08:00 Vancomycin HCl 1 gm/Sodium Chloride 250 ml @ 250 mls/hr 1X ONCE IV Last administered on 04/13/19at 09:39; Start 04/13/19 at 09:00; Stop 04/13/19 at 09:59; Status DC Vancomycin HCl (Vanco Per Pharmacy) 1 each PRN DAILY PRN MC SEE COMMENTS Last administered on 04/13/19at 18:11; Start 04/13/19 at 08:15 Dextrose/Sodium Chloride 1,000 ml @ 125 mls/hr Q8H IV Last administered on 04/14/19at 08:18; Start 04/13/19 at 08:30 Vancomycin HCl 750 mg/Sodium Chloride 250 ml @ 250 mls/hr Q24H IV ; Start 04/02 07/19 at 10:00 Vancomycin HCl (Vancomycin Trough Level) 1 each 1X ONCE MC ; Start 04/15/19 at 09:30; Stop 04/15/19 at 09:31 Hydralazine HCl (Apresoline Inj) 10 mg PRN Q6HRS PRN IVP ELEVATED BP, SEE COMMENTS Last administered on 04/13/19at 14:14; Start 04/13/19 at 14:15 Active Scripts Active Reported Namenda Xr (Memantine Hcl) 28 Mg Cap.spr.24 28 Mg PO DAILY Miralax (Polyethylene Glycol 3350) 17 Gm Powd.pack 1 Packet PO DAILY dissolve in water Milk Of Magnesia (Magnesium Hydroxide) 400 Mg/5 Ml Oral.susp 400 Mg PO DAILY Furosemide 20 Mg Tablet 20 Mg PO DAILY Gabapentin 600 Mg Tablet 600 Mg PO QHS Gabapentin 300 Mg Capsule 300 Mg PO DAILY Docusate Sodium 100 Mg Capsule 100 Mg PO DAILY Children's Aspirin (Aspirin) 81 Mg Tab.chew 81 Mg PO DAILY Aricept (Donepezil Hcl) 10 Mg Tablet 10 Mg PO DAILY Amlodipine Besylate 5 Mg Tablet 5 Mg PO DAILY Acetaminophen 325 Mg/10.15 Ml Solution 650 Mg PO Q8HRS Vitals/I & O Vital Sign - Last 24 Hours 04/13/19 04/13/19 04/13/19 04/13/19 11:23 14:14 15:11 19:20 Temp 98.3 98.0 98.3 98.0 Pulse 75 75 75 Resp 18 18 B/P (MAP) 162/86 (111) 162/86 157/67 (97) Pulse Ox 92 92 O2 Delivery Room Air Room Air Room Air 04/13/19 04/13/19 04/14/19 04/14/19 19:35 23:35 03:35 07:00 Temp 99.0 98.4 97.6 98.1 99.0 98.4 97.6 98.1 Pulse 82 72 70 60 Resp 19 18 18 16 B/P (MAP) 167/79 (108) 164/81 (108) 154/88 (110) 152/83 (106) Pulse Ox 96 97 94 94 O2 Delivery Room Air Room Air Room Air Room Air Intake and Output 04/13/19 04/13/19 04/14/19 15:00 23:00 07:00 Intake Total 0 ml Balance 0 ml OWEN ELIZABETH MD Apr 14, 2019 10:22
[2019-04-14] MEDS: VANCOMYCIN 750 MG in IV NORMAL SALINE 250ML 250 ML IV SCH (10:46)
--- NOTE | 2019-04-14 10:55 | PDOC ---
Renal-Progress Notes Subjective Notes Notes NO NEW COMPLAINTS History of Present Illness Hx of present illness STABLE Vitals Vitals Vital Signs Date Time Temp Pulse Resp B/P (MAP) Pulse Ox O2 Delivery O2 Flow Rate FiO2 04/14/19 07:00 98.1 60 16 152/83 (106) 94 Room Air 98.1 Weight Weight [ ] I.O. Intake and Output Intake and Output 04/14/19 07:00 Intake Total 0 ml Balance 0 ml Intake Oral 0 ml # Voids 4 Labs Labs Laboratory Tests Test 04/13/19 11:55 04/13/19 16:10 04/14/19 04:35 Sodium Level 161 mmol/L (136-145) 158 mmol/L (136-145) 156 mmol/L (136-145) Potassium Level 4.1 mmol/L (3.5-5.1) 3.3 mmol/L (3.5-5.1) 3.0 mmol/L (3.5-5.1) Chloride Level 121 mmol/L (98-107) 120 mmol/L (98-107) 119 mmol/L (98-107) Carbon Dioxide Level 28 mmol/L (21-32) 27 mmol/L (21-32) 25 mmol/L (21-32) Anion Gap 12 (6-14) 11 (6-14) 12 (6-14) Blood Urea Nitrogen 34 mg/dL (7-20) 31 mg/dL (7-20) 22 mg/dL (7-20) Creatinine 0.9 mg/dL (0.6-1.0) 1.1 mg/dL (0.6-1.0) 1.0 mg/dL (0.6-1.0) Estimated GFR (Cockcroft-Gault) 72.0 57.1 63.8 Glucose Level 110 mg/dL (70-99) 114 mg/dL (70-99) 152 mg/dL (70-99) Calcium Level 9.3 mg/dL (8.5-10.1) 9.4 mg/dL (8.5-10.1) 9.3 mg/dL (8.5-10.1) White Blood Count 10.1 x10^3/uL (4.0-11.0) Red Blood Count 5.37 x10^6/uL (3.50-5.40) Hemoglobin 14.6 g/dL (12.0-15.5) Hematocrit 45.1 % (36.0-47.0) Mean Corpuscular Volume 84 fL (79-100) Mean Corpuscular Hemoglobin 27 pg (25-35) Mean Corpuscular Hemoglobin Concent 32 g/dL (31-37) Red Cell Distribution Width 14.7 % (11.5-14.5) Platelet Count 188 x10^3/uL (140-400) Neutrophils (%) (Auto) 70 % (31-73) Lymphocytes (%) (Auto) 20 % (24-48) Monocytes (%) (Auto) 7 % (0-9) Eosinophils (%) (Auto) 2 % (0-3) Basophils (%) (Auto) 1 % (0-3) Neutrophils # (Auto) 7.1 x10^3/uL (1.8-7.7) Lymphocytes # (Auto) 2.0 x10^3/uL (1.0-4.8) Monocytes # (Auto) 0.7 x10^3/uL (0.0-1.1) Eosinophils # (Auto) 0.2 x10^3/uL (0.0-0.7) Basophils # (Auto) 0.1 x10^3/uL (0.0-0.2) Micro Micro Microbiology 04/13/19 Blood Culture - Preliminary, Resulted NO GROWTH AFTER 1 DAY Review of Systems Constitutional: yes: other (UNRELIABLE) Physical Exam General Appearance: no apparent distress Skin: warm Respiratory: bilateral CTA Heart: S1S2 Abdomen: soft, bowel sounds present Extremities: pulses present Neurology: alert, follow commands Assessment Assessment IMP DEHYDRATION HYPERNATREMIA-IMPROVED MET ENCEPHALOPATHY DEMENTIA URINARY TRACT INFECTION LEUCOCYTOSIS HYPOKALEMIA PLAN ANTIBIOTICS HYDRATION REPLACE K FREE WATER WILL FOLLOW BRANDON WALLS MD Apr 14, 2019 10:55
[2019-04-14 11:00] VITALS: BP 127/70
--- NOTE | 2019-04-14 11:05 | PDOC ---
PROGRESS NOTES History of Present Illness History of Present Illness VTE Prophylaxis Ordered VTE Prophylaxis Devices: No VTE Pharmacological Prophylaxi: Yes Assessment/Plan Assessment/Plan Impression: Hypernatremia, volume depleted, severe acute metabolic encephalopathy UTI (urinary tract infection) Dehydration SEPSIS Bacteremia POA 04/12 GNR/GPC 1/2 bottles Altered mental status No acute intracranial process. Moderate cerebral volume loss. Mild chronic small vessel ischemic disease. Dilation of the lateral and third ventricles, slightly out of proportion to the degree of cerebral volume loss. This could relate to advanced central atrophy, although normal pressure hydrocephalus could have a similar appearance. ADMITTED iv fluid support, frequent bmp nephrology consult neurology consult dvt prophylaxis iv rocephin, urine culture blood culture ID CONSULT swallow study POOR PROGNOSIS, critically ill, not eating well, consider palliative care soon, comp 04/14 now 32 min cc time Vitals Vitals Vital Signs Date Time Temp Pulse Resp B/P (MAP) Pulse Ox O2 Delivery O2 Flow Rate FiO2 04/14/19 07:00 98.1 60 16 152/83 (106) 94 Room Air 98.1 Physical Exam Physical Exam CONSTITUTIONAL: She is confused. Coop She is in no acute distress. HEENT: She has normal conjunctivae. bacterial overgrowth on her tongue. NECK: Supple, no JVD. LUNGS: Decreased in the bases, no wheeze. HEART: S1, S2. ABDOMEN: Soft, nontender, no guarding or rebound. EXTREMITIES: Her legs were contracted, however, passive range of motion. They were extended without complications. She has no lower extremity edema, no clubbing. SKIN: Warm to touch without signs of rash. NEUROLOGIC: followed simple commands General: Cooperative, No acute distress Heart: Regular rate Lungs: Clear Abdomen: Normal bowel sounds, Soft Extremities: No cyanosis Skin: No rashes Labs LABS Laboratory Tests Test 04/13/19 11:55 04/13/19 16:10 04/14/19 04:35 Sodium Level 161 mmol/L (136-145) 158 mmol/L (136-145) 156 mmol/L (136-145) Potassium Level 4.1 mmol/L (3.5-5.1) 3.3 mmol/L (3.5-5.1) 3.0 mmol/L (3.5-5.1) Chloride Level 121 mmol/L (98-107) 120 mmol/L (98-107) 119 mmol/L (98-107) Carbon Dioxide Level 28 mmol/L (21-32) 27 mmol/L (21-32) 25 mmol/L (21-32) Anion Gap 12 (6-14) 11 (6-14) 12 (6-14) Blood Urea Nitrogen 34 mg/dL (7-20) 31 mg/dL (7-20) 22 mg/dL (7-20) Creatinine 0.9 mg/dL (0.6-1.0) 1.1 mg/dL (0.6-1.0) 1.0 mg/dL (0.6-1.0) Estimated GFR (Cockcroft-Gault) 72.0 57.1 63.8 Glucose Level 110 mg/dL (70-99) 114 mg/dL (70-99) 152 mg/dL (70-99) Calcium Level 9.3 mg/dL (8.5-10.1) 9.4 mg/dL (8.5-10.1) 9.3 mg/dL (8.5-10.1) White Blood Count 10.1 x10^3/uL (4.0-11.0) Red Blood Count 5.37 x10^6/uL (3.50-5.40) Hemoglobin 14.6 g/dL (12.0-15.5) Hematocrit 45.1 % (36.0-47.0) Mean Corpuscular Volume 84 fL (79-100) Mean Corpuscular Hemoglobin 27 pg (25-35) Mean Corpuscular Hemoglobin Concent 32 g/dL (31-37) Red Cell Distribution Width 14.7 % (11.5-14.5) Platelet Count 188 x10^3/uL (140-400) Neutrophils (%) (Auto) 70 % (31-73) Lymphocytes (%) (Auto) 20 % (24-48) Monocytes (%) (Auto) 7 % (0-9) Eosinophils (%) (Auto) 2 % (0-3) Basophils (%) (Auto) 1 % (0-3) Neutrophils # (Auto) 7.1 x10^3/uL (1.8-7.7) Lymphocytes # (Auto) 2.0 x10^3/uL (1.0-4.8) Monocytes # (Auto) 0.7 x10^3/uL (0.0-1.1) Eosinophils # (Auto) 0.2 x10^3/uL (0.0-0.7) Basophils # (Auto) 0.1 x10^3/uL (0.0-0.2) Assessment and Plan Assessmemt and Plan Problems Medical Problems: (1) Altered mental status Status: Acute (2) Dehydration Status: Acute (3) Hypernatremia Status: Acute (4) UTI (urinary tract infection) Status: Acute Comment Review of Relevant I have reviewed the following items shalini (where applicable) has been applied. Labs Laboratory Tests Test 04/12/19 12:20 04/12/19 12:55 04/13/19 01:07 04/13/19 04:00 Urine Collection Type U cath Urine Color Yellow Urine Clarity Hazy Urine pH >8.5 Urine Specific [place] 1.015 Urine Protein 100 mg/dL (NEG-TRACE) Urine Glucose (UA) Negative mg/dL (NEG) Urine Ketones (Stick) Negative mg/dL (NEG) Urine Blood Small (NEG) Urine Nitrite Positive (NEG) Urine Bilirubin Negative (NEG) Urine Urobilinogen Dipstick 1.0 mg/dL (0.2 mg/dL) Urine Leukocyte Esterase Large (NEG) White Blood Count 14.4 x10^3/uL (4.0-11.0) 13.1 x10^3/uL (4.0-11.0) Red Blood Count 5.84 x10^6/uL (3.50-5.40) 5.88 x10^6/uL (3.50-5.40) Hemoglobin 15.9 g/dL (12.0-15.5) 15.7 g/dL (12.0-15.5) Hematocrit 48.6 % (36.0-47.0) 49.2 % (36.0-47.0) Mean Corpuscular Volume 83 fL (79-100) 85 fL (79-100) Mean Corpuscular Hemoglobin 27 pg (25-35) 27 pg (25-35) Mean Corpuscular Hemoglobin Concent 33 g/dL (31-37) 31 g/dL (31-37) Red Cell Distribution Width 14.6 % (11.5-14.5) 15.3 % (11.5-14.5) Platelet Count 231 x10^3/uL (140-400) 231 x10^3/uL (140-400) Neutrophils (%) (Auto) 79 % (31-73) 75 % (31-73) Lymphocytes (%) (Auto) 15 % (24-48) 19 % (24-48) Monocytes (%) (Auto) 5 % (0-9) 6 % (0-9) Eosinophils (%) (Auto) 0 % (0-3) 0 % (0-3) Basophils (%) (Auto) 0 % (0-3) 0 % (0-3) Neutrophils # (Auto) 11.4 x10^3/uL (1.8-7.7) 9.8 x10^3/uL (1.8-7.7) Lymphocytes # (Auto) 2.2 x10^3/uL (1.0-4.8) 2.5 x10^3/uL (1.0-4.8) Monocytes # (Auto) 0.8 x10^3/uL (0.0-1.1) 0.7 x10^3/uL (0.0-1.1) Eosinophils # (Auto) 0.0 x10^3/uL (0.0-0.7) 0.1 x10^3/uL (0.0-0.7) Basophils # (Auto) 0.1 x10^3/uL (0.0-0.2) 0.0 x10^3/uL (0.0-0.2) Prothrombin Time 13.9 SEC (11.7-14.0) Prothromb Time International Ratio 1.1 (0.8-1.1) Sodium Level 160 mmol/L (136-145) 161 mmol/L (136-145) Potassium Level 4.2 mmol/L (3.5-5.1) 3.7 mmol/L (3.5-5.1) Chloride Level 119 mmol/L (98-107) 121 mmol/L (98-107) Carbon Dioxide Level 32 mmol/L (21-32) 28 mmol/L (21-32) Anion Gap 9 (6-14) 12 (6-14) Blood Urea Nitrogen 48 mg/dL (7-20) 40 mg/dL (7-20) Creatinine 1.3 mg/dL (0.6-1.0) 1.0 mg/dL (0.6-1.0) Estimated GFR (Cockcroft-Gault) 47.1 63.8 BUN/Creatinine Ratio 37 (6-20) Glucose Level 109 mg/dL (70-99) 110 mg/dL (70-99) Calcium Level 10.0 mg/dL (8.5-10.1) 9.4 mg/dL (8.5-10.1) Magnesium Level 2.7 mg/dL (1.8-2.4) Total Bilirubin 1.3 mg/dL (0.2-1.0) Aspartate Amino Transf (AST/SGOT) 25 U/L (15-37) Alanine Aminotransferase (ALT/SGPT) 19 U/L (14-59) Alkaline Phosphatase 82 U/L (46-116) Ammonia < 10 mcmol/L (11-34) Troponin I Quantitative < 0.017 ng/mL (0.000-0.055) HI-Tzk-F-Type Natriuretic Peptide 218 pg/mL (0-449) Total Protein 7.5 g/dL (6.4-8.2) Albumin 3.9 g/dL (3.4-5.0) Albumin/Globulin Ratio 1.1 (1.0-1.7) Test 04/13/19 08:35 04/13/19 11:55 04/13/19 16:10 04/14/19 04:35 Sodium Level 161 mmol/L (136-145) 161 mmol/L (136-145) 158 mmol/L (136-145) 156 mmol/L (136-145) Potassium Level 3.6 mmol/L (3.5-5.1) 4.1 mmol/L (3.5-5.1) 3.3 mmol/L (3.5-5.1) 3.0 mmol/L (3.5-5.1) Chloride Level 120 mmol/L (98-107) 121 mmol/L (98-107) 120 mmol/L (98-107) 119 mmol/L (98-107) Carbon Dioxide Level 30 mmol/L (21-32) 28 mmol/L (21-32) 27 mmol/L (21-32) 25 mmol/L (21-32) Anion Gap 11 (6-14) 12 (6-14) 11 (6-14) 12 (6-14) Blood Urea Nitrogen 35 mg/dL (7-20) 34 mg/dL (7-20) 31 mg/dL (7-20) 22 mg/dL (7-20) Creatinine 1.1 mg/dL (0.6-1.0) 0.9 mg/dL (0.6-1.0) 1.1 mg/dL (0.6-1.0) 1.0 mg/dL (0.6-1.0) Estimated GFR (Cockcroft-Gault) 57.1 72.0 57.1 63.8 Glucose Level 101 mg/dL (70-99) 110 mg/dL (70-99) 114 mg/dL (70-99) 152 mg/dL (70-99) Calcium Level 9.7 mg/dL (8.5-10.1) 9.3 mg/dL (8.5-10.1) 9.4 mg/dL (8.5-10.1) 9.3 mg/dL (8.5-10.1) White Blood Count 10.1 x10^3/uL (4.0-11.0) Red Blood Count 5.37 x10^6/uL (3.50-5.40) Hemoglobin 14.6 g/dL (12.0-15.5) Hematocrit 45.1 % (36.0-47.0) Mean Corpuscular Volume 84 fL (79-100) Mean Corpuscular Hemoglobin 27 pg (25-35) Mean Corpuscular Hemoglobin Concent 32 g/dL (31-37) Red Cell Distribution Width 14.7 % (11.5-14.5) Platelet Count 188 x10^3/uL (140-400) Neutrophils (%) (Auto) 70 % (31-73) Lymphocytes (%) (Auto) 20 % (24-48) Monocytes (%) (Auto) 7 % (0-9) Eosinophils (%) (Auto) 2 % (0-3) Basophils (%) (Auto) 1 % (0-3) Neutrophils # (Auto) 7.1 x10^3/uL (1.8-7.7) Lymphocytes # (Auto) 2.0 x10^3/uL (1.0-4.8) Monocytes # (Auto) 0.7 x10^3/uL (0.0-1.1) Eosinophils # (Auto) 0.2 x10^3/uL (0.0-0.7) Basophils # (Auto) 0.1 x10^3/uL (0.0-0.2) Laboratory Tests Test 04/13/19 11:55 04/13/19 16:10 04/14/19 04:35 Sodium Level 161 mmol/L (136-145) 158 mmol/L (136-145) 156 mmol/L (136-145) Potassium Level 4.1 mmol/L (3.5-5.1) 3.3 mmol/L (3.5-5.1) 3.0 mmol/L (3.5-5.1) Chloride Level 121 mmol/L (98-107) 120 mmol/L (98-107) 119 mmol/L (98-107) Carbon Dioxide Level 28 mmol/L (21-32) 27 mmol/L (21-32) 25 mmol/L (21-32) Anion Gap 12 (6-14) 11 (6-14) 12 (6-14) Blood Urea Nitrogen 34 mg/dL (7-20) 31 mg/dL (7-20) 22 mg/dL (7-20) Creatinine 0.9 mg/dL (0.6-1.0) 1.1 mg/dL (0.6-1.0) 1.0 mg/dL (0.6-1.0) Estimated GFR (Cockcroft-Gault) 72.0 57.1 63.8 Glucose Level 110 mg/dL (70-99) 114 mg/dL (70-99) 152 mg/dL (70-99) Calcium Level 9.3 mg/dL (8.5-10.1) 9.4 mg/dL (8.5-10.1) 9.3 mg/dL (8.5-10.1) White Blood Count 10.1 x10^3/uL (4.0-11.0) Red Blood Count 5.37 x10^6/uL (3.50-5.40) Hemoglobin 14.6 g/dL (12.0-15.5) Hematocrit 45.1 % (36.0-47.0) Mean Corpuscular Volume 84 fL (79-100) Mean Corpuscular Hemoglobin 27 pg (25-35) Mean Corpuscular Hemoglobin Concent 32 g/dL (31-37) Red Cell Distribution Width 14.7 % (11.5-14.5) Platelet Count 188 x10^3/uL (140-400) Neutrophils (%) (Auto) 70 % (31-73) Lymphocytes (%) (Auto) 20 % (24-48) Monocytes (%) (Auto) 7 % (0-9) Eosinophils (%) (Auto) 2 % (0-3) Basophils (%) (Auto) 1 % (0-3) Neutrophils # (Auto) 7.1 x10^3/uL (1.8-7.7) Lymphocytes # (Auto) 2.0 x10^3/uL (1.0-4.8) Monocytes # (Auto) 0.7 x10^3/uL (0.0-1.1) Eosinophils # (Auto) 0.2 x10^3/uL (0.0-0.7) Basophils # (Auto) 0.1 x10^3/uL (0.0-0.2) Microbiology 04/13/19 Blood Culture - Preliminary, Resulted NO GROWTH AFTER 1 DAY Medications Current Medications Sodium Chloride 1,000 ml @ 250 mls/hr 1X ONCE IV Last administered on 04/12/19at 12:15; Start 04/12/19 at 12:15; Stop 04/12/19 at 16:14; Status DC Sodium Chloride 500 ml @ 500 mls/hr 1X ONCE IV Last administered on 04/12/19at 13:43; Start 04/12/19 at 12:15; Stop 04/12/19 at 13:14; Status DC Ceftriaxone Sodium (Rocephin) 1 gm 1X ONCE IVP Last administered on 04/12/19at 13:44; Start 04/12/19 at 13:00; Stop 04/12/19 at 13:01; Status DC Ondansetron HCl (Zofran) 4 mg PRN Q8HRS PRN IV NAUSEA/VOMITING; Start 04/12/19 at 14:00; Stop 04/13/19 at 13:59; Status DC Sodium Chloride (Normal Saline Flush) 3 ml QSHIFT PRN IV AFTER MEDS AND BLOOD DRAWS; Start 04/12/19 at 20:30 Ondansetron HCl (Zofran) 4 mg PRN Q4HRS PRN IV NAUSEA/VOMITING; Start 04/12/19 at 20:30 Acetaminophen (Tylenol) 650 mg PRN Q4HRS PRN PO TEMP OVER 100.4F OR MILD PAIN; Start 04/12/19 at 20:30 Albuterol Sulfate (Ventolin Neb Soln) 2.5 mg PRN Q4HRS PRN NEB SHORTNESS OF BREATH; Start 04/12/19 at 20:30 Guaifenesin (Robitussin) 200 mg PRN Q4HRS PRN PO COUGH; Start 04/12/19 at 20:30 Lorazepam (Ativan) 0.5 mg PRN Q4HRS PRN PO ANXIETY / AGITATION; Start 04/12/19 at 20:30 Enoxaparin Sodium (Lovenox 30mg Syringe) 30 mg DAILY SQ Last administered on 04/14/19at 08:18; Start 04/13/19 at 09:00 Sodium Chloride 1,000 ml @ 75 mls/hr [id number] IV Last administered on 04/13/19at 03:34; Start 04/13/19 at 03:30; Stop 04/13/19 at 08:16; Status DC Vancomycin HCl 750 mg/Sodium Chloride 250 ml @ 250 mls/hr Q24H ONCE IV ; Start 04/13/19 at 08:00; Stop 04/13/19 at 08:59; Status UNV Piperacillin Sod/ Tazobactam Sod 2.25 gm/Sodium Chloride 50 ml @ 100 mls/hr Q6HRS IV Last administered on 04/14/19at 05:42; Start 04/13/19 at 08:00 Vancomycin HCl 1 gm/Sodium Chloride 250 ml @ 250 mls/hr 1X ONCE IV Last administered on 04/13/19at 09:39; Start 04/13/19 at 09:00; Stop 04/13/19 at 09:59; Status DC Vancomycin HCl (Vanco Per Pharmacy) 1 each PRN DAILY PRN MC SEE COMMENTS Last administered on 04/13/19at 18:11; Start 04/13/19 at 08:15 Dextrose/Sodium Chloride 1,000 ml @ 125 mls/hr Q8H IV Last administered on 04/14/19at 08:18; Start 04/13/19 at 08:30 Vancomycin HCl 750 mg/Sodium Chloride 250 ml @ 250 mls/hr Q24H IV Last administered on 04/14/19at 10:46; Start 04/14/19 at 10:00 Vancomycin HCl (Vancomycin Trough Level) 1 each 1X ONCE MC ; Start 04/15/19 at 09:30; Stop 04/15/19 at 09:31 Hydralazine HCl (Apresoline Inj) 10 mg PRN Q6HRS PRN IVP ELEVATED BP, SEE COMMENTS Last administered on 04/13/19at 14:14; Start 04/13/19 at 14:15 Potassium Chloride 30 meq/ Sodium Chloride 1,015 ml @ 75 mls/hr 1X ONCE IV ; Start 04/14/19 at 11:30; Stop 04/15/19 at 01:01 Active Scripts Active Reported Namenda Xr (Memantine Hcl) 28 Mg Cap.spr.24 28 Mg PO DAILY Miralax (Polyethylene Glycol 3350) 17 Gm Powd.pack 1 Packet PO DAILY dissolve in water Milk Of Magnesia (Magnesium Hydroxide) 400 Mg/5 Ml Oral.susp 400 Mg PO DAILY Furosemide 20 Mg Tablet 20 Mg PO DAILY Gabapentin 600 Mg Tablet 600 Mg PO QHS Gabapentin 300 Mg Capsule 300 Mg PO DAILY Docusate Sodium 100 Mg Capsule 100 Mg PO DAILY Children's Aspirin (Aspirin) 81 Mg Tab.chew 81 Mg PO DAILY Aricept (Donepezil Hcl) 10 Mg Tablet 10 Mg PO DAILY Amlodipine Besylate 5 Mg Tablet 5 Mg PO DAILY Acetaminophen 325 Mg/10.15 Ml Solution 650 Mg PO Q8HRS Vitals/I & O Vital Sign - Last 24 Hours 04/13/19 04/13/19 04/13/19 04/13/19 11:23 14:14 15:11 19:20 Temp 98.3 98.0 98.3 98.0 Pulse 75 75 75 Resp 18 18 B/P (MAP) 162/86 (111) 162/86 157/67 (97) Pulse Ox 92 92 O2 Delivery Room Air Room Air Room Air 04/13/19 04/13/19 04/14/19 04/14/19 19:35 23:35 03:35 07:00 Temp 99.0 98.4 97.6 98.1 99.0 98.4 97.6 98.1 Pulse 82 72 70 60 Resp 19 18 18 16 B/P (MAP) 167/79 (108) 164/81 (108) 154/88 (110) 152/83 (106) Pulse Ox 96 97 94 94 O2 Delivery Room Air Room Air Room Air Room Air Intake and Output 04/13/19 04/13/19 04/14/19 15:00 23:00 07:00 Intake Total 0 ml Balance 0 ml JODY UNGER MD Apr 14, 2019 11:05
[2019-04-14] MEDS ORDERED: POTASSIUM CHLORIDE 30 MEQ in IV 1/2 NORMAL SALINE 1,000 ML IV ONE (11:30)
[2019-04-14 18:31] VITALS: BP 150/76
[2019-04-14 19:40] VITALS: BP 155/83
[2019-04-14 23:46] VITALS: BP 143/90
[2019-04-15] MEDS: PIPERACILLIN/TAZOBACTAM 2.25 GM in IV NORMAL SALINE 50ML 50 ML IV SCH ×5 (01:13→23:01)
[2019-04-15] MEDS: IV DEXTROSE 5 %-0.2 % NACL 1,000 ML IV SCH ×3 (01:16→17:16)
[2019-04-15 03:53] VITALS: BP 147/66
[2019-04-15 07:00] VITALS: BP 158/71
[2019-04-15] MEDS: ENOXAPARIN 30 MG/0.3 ML SYRINGE. SQ SCH (08:42)
--- NOTE | 2019-04-15 09:38 | PDOC ---
PROGRESS NOTES History of Present Illness History of Present Illness VTE Prophylaxis Ordered VTE Prophylaxis Devices: No VTE Pharmacological Prophylaxi: Yes Assessment/Plan Assessment/Plan Impression: Hypernatremia, volume depleted, severe acute metabolic encephalopathy UTI (urinary tract infection) Dehydration SEPSIS Bacteremia POA 04/12 GNR/GPC 1/2 bottles Altered mental status No acute intracranial process. Moderate cerebral volume loss. Mild chronic small vessel ischemic disease. Dilation of the lateral and third ventricles, slightly out of proportion to the degree of cerebral volume loss. This could relate to advanced central atrophy, although normal pressure hydrocephalus could have a similar appearance. ADMITTED iv fluid support, frequent bmp nephrology consult neurology consult dvt prophylaxis iv rocephin, urine culture blood culture ID CONSULT swallow study POOR PROGNOSIS, remains critically ill, not eating well, consider palliative care soon, comp 04/14 now 37 min exam time, chart review, > 50% of time spent with exam, chart review, pt care coordination Vitals Vitals Vital Signs Date Time Temp Pulse Resp B/P (MAP) Pulse Ox O2 Delivery O2 Flow Rate FiO2 04/15/19 07:00 97.6 59 16 158/71 (100) 96 Room Air 97.6 Physical Exam Physical Exam CONSTITUTIONAL: She is confused. Coop She is in no acute distress. HEENT: She has normal conjunctivae. NECK: Supple, no JVD. LUNGS: Decreased in the bases, no wheeze. HEART: S1, S2. ABDOMEN: Soft, nontender, no guarding or rebound. EXTREMITIES: Her legs were contracted, however, passive range of motion. They were extended without complications. She has no lower extremity edema, no clubbing. SKIN: Warm to touch without signs of rash. NEUROLOGIC: followed simple commands General: Cooperative, No acute distress Heart: Regular rate Lungs: Clear Abdomen: Normal bowel sounds, Soft Extremities: No cyanosis, No edema Skin: No rashes Assessment and Plan Assessmemt and Plan Problems Medical Problems: (1) Altered mental status Status: Acute (2) Dehydration Status: Acute (3) Hypernatremia Status: Acute (4) UTI (urinary tract infection) Status: Acute Comment Review of Relevant I have reviewed the following items shalini (where applicable) has been applied. Labs Laboratory Tests Test 04/13/19 11:55 04/13/19 16:10 04/14/19 04:35 Sodium Level 161 mmol/L (136-145) 158 mmol/L (136-145) 156 mmol/L (136-145) Potassium Level 4.1 mmol/L (3.5-5.1) 3.3 mmol/L (3.5-5.1) 3.0 mmol/L (3.5-5.1) Chloride Level 121 mmol/L (98-107) 120 mmol/L (98-107) 119 mmol/L (98-107) Carbon Dioxide Level 28 mmol/L (21-32) 27 mmol/L (21-32) 25 mmol/L (21-32) Anion Gap 12 (6-14) 11 (6-14) 12 (6-14) Blood Urea Nitrogen 34 mg/dL (7-20) 31 mg/dL (7-20) 22 mg/dL (7-20) Creatinine 0.9 mg/dL (0.6-1.0) 1.1 mg/dL (0.6-1.0) 1.0 mg/dL (0.6-1.0) Estimated GFR (Cockcroft-Gault) 72.0 57.1 63.8 Glucose Level 110 mg/dL (70-99) 114 mg/dL (70-99) 152 mg/dL (70-99) Calcium Level 9.3 mg/dL (8.5-10.1) 9.4 mg/dL (8.5-10.1) 9.3 mg/dL (8.5-10.1) White Blood Count 10.1 x10^3/uL (4.0-11.0) Red Blood Count 5.37 x10^6/uL (3.50-5.40) Hemoglobin 14.6 g/dL (12.0-15.5) Hematocrit 45.1 % (36.0-47.0) Mean Corpuscular Volume 84 fL (79-100) Mean Corpuscular Hemoglobin 27 pg (25-35) Mean Corpuscular Hemoglobin Concent 32 g/dL (31-37) Red Cell Distribution Width 14.7 % (11.5-14.5) Platelet Count 188 x10^3/uL (140-400) Neutrophils (%) (Auto) 70 % (31-73) Lymphocytes (%) (Auto) 20 % (24-48) Monocytes (%) (Auto) 7 % (0-9) Eosinophils (%) (Auto) 2 % (0-3) Basophils (%) (Auto) 1 % (0-3) Neutrophils # (Auto) 7.1 x10^3/uL (1.8-7.7) Lymphocytes # (Auto) 2.0 x10^3/uL (1.0-4.8) Monocytes # (Auto) 0.7 x10^3/uL (0.0-1.1) Eosinophils # (Auto) 0.2 x10^3/uL (0.0-0.7) Basophils # (Auto) 0.1 x10^3/uL (0.0-0.2) Microbiology 04/13/19 Blood Culture - Preliminary, Resulted NO GROWTH AFTER 2 DAYS Medications Current Medications Sodium Chloride 1,000 ml @ 250 mls/hr 1X ONCE IV Last administered on 04/12/19at 12:15; Start 04/12/19 at 12:15; Stop 04/12/19 at 16:14; Status DC Sodium Chloride 500 ml @ 500 mls/hr 1X ONCE IV Last administered on 04/12/19at 13:43; Start 04/12/19 at 12:15; Stop 04/12/19 at 13:14; Status DC Ceftriaxone Sodium (Rocephin) 1 gm 1X ONCE IVP Last administered on 04/12/19at 13:44; Start 04/12/19 at 13:00; Stop 04/12/19 at 13:01; Status DC Ondansetron HCl (Zofran) 4 mg PRN Q8HRS PRN IV NAUSEA/VOMITING; Start 04/12/19 at 14:00; Stop 04/13/19 at 13:59; Status DC Sodium Chloride (Normal Saline Flush) 3 ml QSHIFT PRN IV AFTER MEDS AND BLOOD DRAWS; Start 04/12/19 at 20:30 Ondansetron HCl (Zofran) 4 mg PRN Q4HRS PRN IV NAUSEA/VOMITING; Start 04/12/19 at 20:30 Acetaminophen (Tylenol) 650 mg PRN Q4HRS PRN PO TEMP OVER 100.4F OR MILD PAIN; Start 04/12/19 at 20:30 Albuterol Sulfate (Ventolin Neb Soln) 2.5 mg PRN Q4HRS PRN NEB SHORTNESS OF BREATH; Start 04/12/19 at 20:30 Guaifenesin (Robitussin) 200 mg PRN Q4HRS PRN PO COUGH; Start 04/12/19 at 20:30 Lorazepam (Ativan) 0.5 mg PRN Q4HRS PRN PO ANXIETY / AGITATION; Start 04/12/19 at 20:30 Enoxaparin Sodium (Lovenox 30mg Syringe) 30 mg DAILY SQ Last administered on 04/15/19at 08:42; Start 04/13/19 at 09:00 Sodium Chloride 1,000 ml @ 75 mls/hr [id number] IV Last administered on 04/13/19at 03:34; Start 04/13/19 at 03:30; Stop 04/13/19 at 08:16; Status DC Vancomycin HCl 750 mg/Sodium Chloride 250 ml @ 250 mls/hr Q24H ONCE IV ; Start 04/13/19 at 08:00; Stop 04/13/19 at 08:59; Status UNV Piperacillin Sod/ Tazobactam Sod 2.25 gm/Sodium Chloride 50 ml @ 100 mls/hr Q6HRS IV Last administered on 04/15/19at 06:05; Start 04/13/19 at 08:00 Vancomycin HCl 1 gm/Sodium Chloride 250 ml @ 250 mls/hr 1X ONCE IV Last administered on 04/13/19at 09:39; Start 04/13/19 at 09:00; Stop 04/13/19 at 09:59; Status DC Vancomycin HCl (Vanco Per Pharmacy) 1 each PRN DAILY PRN MC SEE COMMENTS Last administered on 04/13/19at 18:11; Start 04/13/19 at 08:15 Dextrose/Sodium Chloride 1,000 ml @ 125 mls/hr Q8H IV Last administered on 04/15/19at 08:41; Start 04/13/19 at 08:30 Vancomycin HCl 750 mg/Sodium Chloride 250 ml @ 250 mls/hr Q24H IV Last administered on 04/14/19at 10:46; Start 04/14/19 at 10:00 Vancomycin HCl (Vancomycin Trough Level) 1 each 1X ONCE MC ; Start 04/15/19 at 09:30; Stop 04/15/19 at 09:31; Status DC Hydralazine HCl (Apresoline Inj) 10 mg PRN Q6HRS PRN IVP ELEVATED BP, SEE COMMENTS Last administered on 04/13/19at 14:14; Start 04/13/19 at 14:15 Potassium Chloride 30 meq/ Sodium Chloride 1,015 ml @ 75 mls/hr 1X ONCE IV Last administered on 04/14/19at 12:27; Start 04/14/19 at 11:30; Stop 04/15/19 at 01:01; Status DC Active Scripts Active Reported Namenda Xr (Memantine Hcl) 28 Mg Cap.spr.24 28 Mg PO DAILY Miralax (Polyethylene Glycol 3350) 17 Gm Powd.pack 1 Packet PO DAILY dissolve in water Milk Of Magnesia (Magnesium Hydroxide) 400 Mg/5 Ml Oral.susp 400 Mg PO DAILY Furosemide 20 Mg Tablet 20 Mg PO DAILY Gabapentin 600 Mg Tablet 600 Mg PO QHS Gabapentin 300 Mg Capsule 300 Mg PO DAILY Docusate Sodium 100 Mg Capsule 100 Mg PO DAILY Children's Aspirin (Aspirin) 81 Mg Tab.chew 81 Mg PO DAILY Aricept (Donepezil Hcl) 10 Mg Tablet 10 Mg PO DAILY Amlodipine Besylate 5 Mg Tablet 5 Mg PO DAILY Acetaminophen 325 Mg/10.15 Ml Solution 650 Mg PO Q8HRS Vitals/I & O Vital Sign - Last 24 Hours 04/14/19 04/14/19 04/14/19 04/14/19 11:00 18:31 19:40 20:00 Temp 98.1 98.1 Pulse 59 73 77 Resp 16 18 B/P (MAP) 127/70 (89) 150/76 (100) 155/83 (107) Pulse Ox 95 95 O2 Delivery Room Air Room Air Room Air 04/14/19 04/15/19 04/15/19 23:46 03:53 07:00 Temp 97.8 97.7 97.6 97.8 97.7 97.6 Pulse 75 66 59 Resp 16 16 16 B/P (MAP) 143/90 (107) 147/66 (93) 158/71 (100) Pulse Ox 93 93 96 O2 Delivery Room Air Room Air Room Air Intake and Output 04/14/19 04/14/19 04/15/19 15:00 23:00 07:00 Intake Total 0 ml Balance 0 ml JODY UNGER MD Apr 15, 2019 09:38
[2019-04-15 10:41] LABS: CALCIUM 8.8 mg/dL (8.5-10.1); CREATININE 0.8 mg/dL (0.6-1.0); GFR 82.5; MAGNESIUM 1.9 mg/dL (1.8-2.4); POTASSIUM 3.4 mmol/L (3.5-5.1)
[2019-04-15 10:45] LABS: VANC TR 4.9 mcg/mL (10.0-20.0)
--- NOTE | 2019-04-15 11:00 | PDOC ---
Renal-Progress Notes Subjective Notes Notes NO NEW COMPLAINTS Vitals Vitals Vital Signs Date Time Temp Pulse Resp B/P (MAP) Pulse Ox O2 Delivery O2 Flow Rate FiO2 04/15/19 07:00 97.6 59 16 158/71 (100) 96 Room Air 97.6 Weight Weight [ ] I.O. Intake and Output Intake and Output 04/15/19 07:00 Intake Total 0 ml Balance 0 ml Intake Oral 0 ml # Voids 5 Labs Labs Laboratory Tests Test 04/15/19 10:00 04/15/19 10:24 Vancomycin Level Trough 4.9 mcg/mL (10.0-20.0) Vancomycin Last Dose Date 04/14/19 Vancomycin Last Dose Time 1000 Sodium Level 150 mmol/L (136-145) Potassium Level 3.4 mmol/L (3.5-5.1) Chloride Level 112 mmol/L (98-107) Carbon Dioxide Level 27 mmol/L (21-32) Anion Gap 11 (6-14) Blood Urea Nitrogen 13 mg/dL (7-20) Creatinine 0.8 mg/dL (0.6-1.0) Estimated GFR (Cockcroft-Gault) 82.5 Glucose Level 164 mg/dL (70-99) Calcium Level 8.8 mg/dL (8.5-10.1) Magnesium Level 1.9 mg/dL (1.8-2.4) Micro Micro Microbiology 04/13/19 Blood Culture - Preliminary, Resulted NO GROWTH AFTER 2 DAYS Review of Systems Constitutional: yes: other (UNRELIABLE) Physical Exam General Appearance: no apparent distress Skin: warm Respiratory: bilateral CTA Heart: S1S2 Abdomen: soft, bowel sounds present Extremities: pulses present Neurology: alert, follow commands Assessment Assessment IMP DEHYDRATION HYPERNATREMIA-IMPROVED MET ENCEPHALOPATHY DEMENTIA URINARY TRACT INFECTION LEUCOCYTOSIS HYPOKALEMIA PLAN ANTIBIOTICS HYDRATION REPLACE K FREE WATER WILL FOLLOW BARNDON WALLS MD Apr 15, 2019 11:00
[2019-04-15] MEDS: VANCOMYCIN 750 MG in IV NORMAL SALINE 250ML 250 ML IV SCH ×2 (11:04→17:09)
[2019-04-15] MEDS: POTASSIUM CHLORIDE 10MEQ 100 ML IV SCH ×4 (11:05→18:39)
[2019-04-15] MEDS: VANCOMYCIN PER PHARMACY MC PRN (11:19)
--- NOTE | 2019-04-15 11:19 | NUR ---
Pharmacy Vancomycin Dosing Note S: Consulted to monitor and dose vancomycin started 04/13/19. O: EVANS BELCHER is a 83 year old F with Sepsis, UTI Other Antibiotics: ZOSYN LABS: Last BUN: 13 Last Creatinine: 0.8 Creatinine Clearance: 30 mL/min Last WBC: 10.1 Drug Levels: Last Trough level: 4.9 on 04/15/19 at 1000 Last dose given 04/14/19 at 1046 Vancomycin Dosing: Dosing Weight: Actual Target Trough: 15-20 A: Based on: subtherapeutic trough P: 1. Change Vancomycin 750 mg IV to q12h 2. Follow up Trough level on 04/16/19 at 1130 3. Pharmacy will continue to monitor, follow and adjust therapy as needed. ARASELI RICO, [facility]MERLY [facility] [place], 04/15/19 [id number]
[2019-04-15 11:26] VITALS: BP 118/70
--- NOTE | 2019-04-15 12:02 | PDOC ---
PROGRESS NOTES Assessment Problems Medical Problems: (1) Altered mental status Status: Acute (2) Dehydration Status: Acute (3) Hypernatremia Status: Acute (4) UTI (urinary tract infection) Status: Acute Metabolic encephalopathy in the setting of severe dementia, patient has been declining and not eating. This may be her terminal illness. Plan Hydration I discussed with patient's son and [id number], if she does not perk up from the hydration, I recommend sending her back to the custodial on comfort care, hospice. They are fully agreeable with this recommendation. Indeed she is not much better, I see no need for continued hospitalization and she should be sent back to the custodial on comfort care. Neurology signs off. Subjective none Objective Vital Signs Date Time Temp Pulse Resp B/P (MAP) Pulse Ox O2 Delivery O2 Flow Rate FiO2 04/15/19 11:26 98.1 63 16 118/70 (86) 95 Room Air 98.1 Intake and Output 04/15/19 07:00 Intake Total 0 ml Balance 0 ml Intake Oral 0 ml # Voids 5 PHYSICAL EXAM Alert. Eyes open, nonverbal, does not follow commands. PERRL. EOMI. CN: no focal findings. Muscle tone: [place]. Muscle strength: 3/5 DTR: 1+ Bilateral grass reflexes Plantar reflex: flexor Gait: not examined in bed. Sensory exam: not cooperative. Cerebellar: not cooperative Review of Relevant I have reviewed the following items shalini (where applicable) has been applied. Labs Laboratory Tests Test 04/13/19 16:10 04/14/19 04:35 04/15/19 10:00 04/15/19 10:24 Sodium Level 158 mmol/L (136-145) 156 mmol/L (136-145) 150 mmol/L (136-145) Potassium Level 3.3 mmol/L (3.5-5.1) 3.0 mmol/L (3.5-5.1) 3.4 mmol/L (3.5-5.1) Chloride Level 120 mmol/L (98-107) 119 mmol/L (98-107) 112 mmol/L (98-107) Carbon Dioxide Level 27 mmol/L (21-32) 25 mmol/L (21-32) 27 mmol/L (21-32) Anion Gap 11 (6-14) 12 (6-14) 11 (6-14) Blood Urea Nitrogen 31 mg/dL (7-20) 22 mg/dL (7-20) 13 mg/dL (7-20) Creatinine 1.1 mg/dL (0.6-1.0) 1.0 mg/dL (0.6-1.0) 0.8 mg/dL (0.6-1.0) Estimated GFR (Cockcroft-Gault) 57.1 63.8 82.5 Glucose Level 114 mg/dL (70-99) 152 mg/dL (70-99) 164 mg/dL (70-99) Calcium Level 9.4 mg/dL (8.5-10.1) 9.3 mg/dL (8.5-10.1) 8.8 mg/dL (8.5-10.1) White Blood Count 10.1 x10^3/uL (4.0-11.0) Red Blood Count 5.37 x10^6/uL (3.50-5.40) Hemoglobin 14.6 g/dL (12.0-15.5) Hematocrit 45.1 % (36.0-47.0) Mean Corpuscular Volume 84 fL (79-100) Mean Corpuscular Hemoglobin 27 pg (25-35) Mean Corpuscular Hemoglobin Concent 32 g/dL (31-37) Red Cell Distribution Width 14.7 % (11.5-14.5) Platelet Count 188 x10^3/uL (140-400) Neutrophils (%) (Auto) 70 % (31-73) Lymphocytes (%) (Auto) 20 % (24-48) Monocytes (%) (Auto) 7 % (0-9) Eosinophils (%) (Auto) 2 % (0-3) Basophils (%) (Auto) 1 % (0-3) Neutrophils # (Auto) 7.1 x10^3/uL (1.8-7.7) Lymphocytes # (Auto) 2.0 x10^3/uL (1.0-4.8) Monocytes # (Auto) 0.7 x10^3/uL (0.0-1.1) Eosinophils # (Auto) 0.2 x10^3/uL (0.0-0.7) Basophils # (Auto) 0.1 x10^3/uL (0.0-0.2) Vancomycin Level Trough 4.9 mcg/mL (10.0-20.0) Vancomycin Last Dose Date 04/14/19 Vancomycin Last Dose Time 1000 Magnesium Level 1.9 mg/dL (1.8-2.4) Laboratory Tests Test 04/15/19 10:00 04/15/19 10:24 Vancomycin Level Trough 4.9 mcg/mL (10.0-20.0) Vancomycin Last Dose Date 04/14/19 Vancomycin Last Dose Time 1000 Sodium Level 150 mmol/L (136-145) Potassium Level 3.4 mmol/L (3.5-5.1) Chloride Level 112 mmol/L (98-107) Carbon Dioxide Level 27 mmol/L (21-32) Anion Gap 11 (6-14) Blood Urea Nitrogen 13 mg/dL (7-20) Creatinine 0.8 mg/dL (0.6-1.0) Estimated GFR (Cockcroft-Gault) 82.5 Glucose Level 164 mg/dL (70-99) Calcium Level 8.8 mg/dL (8.5-10.1) Magnesium Level 1.9 mg/dL (1.8-2.4) Microbiology 04/13/19 Blood Culture - Preliminary, Resulted NO GROWTH AFTER 2 DAYS Medications Current Medications Sodium Chloride 1,000 ml @ 250 mls/hr 1X ONCE IV Last administered on 04/12/19at 12:15; Start 04/12/19 at 12:15; Stop 04/12/19 at 16:14; Status DC Sodium Chloride 500 ml @ 500 mls/hr 1X ONCE IV Last administered on 04/12/19at 13:43; Start 04/12/19 at 12:15; Stop 04/12/19 at 13:14; Status DC Ceftriaxone Sodium (Rocephin) 1 gm 1X ONCE IVP Last administered on 04/12/19at 13:44; Start 04/12/19 at 13:00; Stop 04/12/19 at 13:01; Status DC Ondansetron HCl (Zofran) 4 mg PRN Q8HRS PRN IV NAUSEA/VOMITING; Start 04/12/19 at 14:00; Stop 04/13/19 at 13:59; Status DC Sodium Chloride (Normal Saline Flush) 3 ml QSHIFT PRN IV AFTER MEDS AND BLOOD DRAWS; Start 04/12/19 at 20:30 Ondansetron HCl (Zofran) 4 mg PRN Q4HRS PRN IV NAUSEA/VOMITING; Start 04/12/19 at 20:30 Acetaminophen (Tylenol) 650 mg PRN Q4HRS PRN PO TEMP OVER 100.4F OR MILD PAIN; Start 04/12/19 at 20:30 Albuterol Sulfate (Ventolin Neb Soln) 2.5 mg PRN Q4HRS PRN NEB SHORTNESS OF BREATH; Start 04/12/19 at 20:30 Guaifenesin (Robitussin) 200 mg PRN Q4HRS PRN PO COUGH; Start 04/12/19 at 20:30 Lorazepam (Ativan) 0.5 mg PRN Q4HRS PRN PO ANXIETY / AGITATION; Start 04/12/19 at 20:30 Enoxaparin Sodium (Lovenox 30mg Syringe) 30 mg DAILY SQ Last administered on 04/15/19at 08:42; Start 04/13/19 at 09:00 Sodium Chloride 1,000 ml @ 75 mls/hr [id number] IV Last administered on 04/13/19at 03:34; Start 04/13/19 at 03:30; Stop 04/13/19 at 08:16; Status DC Vancomycin HCl 750 mg/Sodium Chloride 250 ml @ 250 mls/hr Q24H ONCE IV ; Start 04/13/19 at 08:00; Stop 04/13/19 at 08:59; Status UNV Piperacillin Sod/ Tazobactam Sod 2.25 gm/Sodium Chloride 50 ml @ 100 mls/hr Q6HRS IV Last administered on 04/15/19at 06:05; Start 04/13/19 at 08:00 Vancomycin HCl 1 gm/Sodium Chloride 250 ml @ 250 mls/hr 1X ONCE IV Last administered on 04/13/19at 09:39; Start 04/13/19 at 09:00; Stop 04/13/19 at 09:59; Status DC Vancomycin HCl (Vanco Per Pharmacy) 1 each PRN DAILY PRN MC SEE COMMENTS Last administered on 04/15/19at 11:19; Start 04/13/19 at 08:15 Dextrose/Sodium Chloride 1,000 ml @ 125 mls/hr Q8H IV Last administered on 04/15/19at 08:41; Start 04/13/19 at 08:30 Vancomycin HCl 750 mg/Sodium Chloride 250 ml @ 250 mls/hr Q24H IV Last administered on 04/15/19at 11:04; Start 04/14/19 at 10:00; Stop 04/15/19 at 11:03; Status DC Vancomycin HCl (Vancomycin Trough Level) 1 each 1X ONCE MC Last administered on 04/15/19at 09:30; Start 04/15/19 at 09:30; Stop 04/15/19 at 09:31; Status DC Hydralazine HCl (Apresoline Inj) 10 mg PRN Q6HRS PRN IVP ELEVATED BP, SEE COMMENTS Last administered on 04/13/19at 14:14; Start 04/13/19 at 14:15 Potassium Chloride 30 meq/ Sodium Chloride 1,015 ml @ 75 mls/hr 1X ONCE IV Last administered on 04/14/19at 12:27; Start 04/14/19 at 11:30; Stop 04/15/19 at 01:01; Status DC Potassium Chloride/Water 100 ml @ 100 mls/hr Q1H IV Last administered on 04/15/19at 11:05; Start 04/15/19 at 10:00; Stop 04/15/19 at 13:59 Vancomycin HCl 750 mg/Sodium Chloride 250 ml @ 250 mls/hr Q12H IV ; Start 04/15/19 at 12:00 Vancomycin HCl (Vancomycin Trough Level) 1 each 1X ONCE MC ; Start 04/16/19 at 11:30; Stop 04/16/19 at 11:31 Nystatin (Nystatin Oral Susp) 7.5 ml [id number] SWSW ; Start 04/15/19 at 13:00 Active Scripts Active Reported Namenda Xr (Memantine Hcl) 28 Mg Cap.spr.24 28 Mg PO DAILY Miralax (Polyethylene Glycol 3350) 17 Gm Powd.pack 1 Packet PO DAILY dissolve in water Milk Of Magnesia (Magnesium Hydroxide) 400 Mg/5 Ml Oral.susp 400 Mg PO DAILY Furosemide 20 Mg Tablet 20 Mg PO DAILY Gabapentin 600 Mg Tablet 600 Mg PO QHS Gabapentin 300 Mg Capsule 300 Mg PO DAILY Docusate Sodium 100 Mg Capsule 100 Mg PO DAILY Children's Aspirin (Aspirin) 81 Mg Tab.chew 81 Mg PO DAILY Aricept (Donepezil Hcl) 10 Mg Tablet 10 Mg PO DAILY Amlodipine Besylate 5 Mg Tablet 5 Mg PO DAILY Acetaminophen 325 Mg/10.15 Ml Solution 650 Mg PO Q8HRS Vitals/I & O Vital Sign - Last 24 Hours 04/14/19 04/14/19 04/14/19 04/14/19 18:31 19:40 20:00 23:46 Temp 97.8 97.8 Pulse 73 77 75 Resp 18 16 B/P (MAP) 150/76 (100) 155/83 (107) 143/90 (107) Pulse Ox 95 93 O2 Delivery Room Air Room Air Room Air 04/15/19 04/15/19 04/15/19 03:53 07:00 11:26 Temp 97.7 97.6 98.1 97.7 97.6 98.1 Pulse 66 59 63 Resp 16 16 16 B/P (MAP) 147/66 (93) 158/71 (100) 118/70 (86) Pulse Ox 93 96 95 O2 Delivery Room Air Room Air Room Air Intake and Output 04/14/19 04/14/19 04/15/19 15:00 23:00 07:00 Intake Total 0 ml Balance 0 ml OWEN ELIZABETH MD Apr 15, 2019 12:02
--- NOTE | 2019-04-15 14:00 | PDOC ---
Infectious Disease Note Subjective Subjective Confused No fevers reported + BM Vital Sign Vital Signs Vital Signs Date Time Temp Pulse Resp B/P (MAP) Pulse Ox O2 Delivery O2 Flow Rate FiO2 04/15/19 11:26 98.1 63 16 118/70 (86) 95 Room Air 98.1 Physical Exam PHYSICAL EXAM GENERAL: Propped up in bed, alert, in NAD HEENT: Oc/op bacterial overgrowth NECK: Supple LUNGS: Decreased in the bases, no wheeze. HEART: S1, S2. ABDOMEN: Soft, nontender EXTREMITIES: no gross edema SKIN: Warm to touch without signs of rash. NEUROLOGIC: Alert, confused but does follow a few simple commands Labs Lab Laboratory Tests Test 04/15/19 10:00 04/15/19 10:24 Vancomycin Level Trough 4.9 mcg/mL (10.0-20.0) Vancomycin Last Dose Date 04/14/19 Vancomycin Last Dose Time 1000 Sodium Level 150 mmol/L (136-145) Potassium Level 3.4 mmol/L (3.5-5.1) Chloride Level 112 mmol/L (98-107) Carbon Dioxide Level 27 mmol/L (21-32) Anion Gap 11 (6-14) Blood Urea Nitrogen 13 mg/dL (7-20) Creatinine 0.8 mg/dL (0.6-1.0) Estimated GFR (Cockcroft-Gault) 82.5 Glucose Level 164 mg/dL (70-99) Calcium Level 8.8 mg/dL (8.5-10.1) Magnesium Level 1.9 mg/dL (1.8-2.4) Micro Microbiology 04/13/19 Blood Culture - Preliminary, Resulted NO GROWTH AFTER 2 DAYS 04/12. BLOOD CULTURE Final GRAM NEGATIVE RODS AND FEW GRAM POSITIVE COCCI. GROWTH IN ONE OF TWO BOTTLES OF ONE SET DRAWN. Objective Assessment Bacteremia POA 04/12 GNR/GPC 1/2 bottles UTI 04/12 POA Leukocytosis - better Patchy infiltrates TANESHA - better Dehydration Electrolyte abn - better HTN ? demetia vs acute illness Bacterial overgrowth on tongue Plan Plan of Care Mrs Gudino is from [employer] but no available records Cont Vanc and Zosyn Trough 4.9 F/u labs and cults Depending on cult results (if not contamination) may need GI eval for source but currently abd is benign Oral care electrolytes per primary Attending Co-Sign The patient was seen and interviewed as well as examined at the bedside. The chart was reviewed. The case was discussed. Agree with the plan of care. JEFF ENCISO APRN Apr 15, 2019 14:00 WILL STOKES MD Apr 15, 2019 15:24
[2019-04-15 15:30] VITALS: BP 142/67
[2019-04-15] MEDS: NYSTATIN 100,000 UNITS/ML 5 ML ORAL.SUSP. SWSW SCH ×3 (16:45→21:00)
--- NOTE | 2019-04-15 16:45 | RAD ---
Portable chest x-ray compared to similar examination dated April 13, 2019 for PICC line placement. FINDINGS: There are worsening bilateral interstitial infiltrates concerning for progressive pulmonary edema. There is a new right PICC line, the distal tip which is in the proximal right atrium, suitable for use. Heart size stable. IMPRESSION: 1. New right PICC line appropriately positioned suitable for use. 2. Worsening interstitial and alveolar infiltrates suggesting progressive pulmonary edema. Electronically signed by: Sudhakar Almaguer MD (04/15/2019 4:42 PM) [facility]
[2019-04-15 19:10] VITALS: BP 146/70
[2019-04-15 23:20] VITALS: BP 145/68
[2019-04-16] MEDS: VANCOMYCIN 750 MG in IV NORMAL SALINE 250ML 250 ML IV SCH ×2 (00:28→12:28)
[2019-04-16] MEDS: IV DEXTROSE 5 %-0.2 % NACL 1,000 ML IV SCH ×3 (01:16→18:07)
[2019-04-16 02:56] VITALS: BP 150/79
[2019-04-16] MEDS: PIPERACILLIN/TAZOBACTAM 2.25 GM in IV NORMAL SALINE 50ML 50 ML IV SCH ×4 (05:48→23:08)
[2019-04-16 07:00] VITALS: BP 153/80
[2019-04-16] MEDS: ENOXAPARIN 30 MG/0.3 ML SYRINGE. SQ SCH (09:27)
[2019-04-16] MEDS: NYSTATIN 100,000 UNITS/ML 5 ML ORAL.SUSP. SWSW SCH ×4 (09:27→20:39)
[2019-04-16 11:00] VITALS: BP 175/81
--- NOTE | 2019-04-16 11:16 | PDOC ---
PROGRESS NOTES History of Present Illness History of Present Illness VTE Prophylaxis Ordered VTE Prophylaxis Devices: No VTE Pharmacological Prophylaxi: Yes Assessment/Plan Assessment/Plan Impression: Hypernatremia, volume depleted, severe acute metabolic encephalopathy UTI (urinary tract infection) Dehydration SEPSIS Bacteremia POA 04/12 GNR/GPC 1/2 bottles Altered mental status No acute intracranial process. Moderate cerebral volume loss. Mild chronic small vessel ischemic disease. Dilation of the lateral and third ventricles, slightly out of proportion to the degree of cerebral volume loss. This could relate to advanced central atrophy, although normal pressure hydrocephalus could have a similar appearance. 04/16 [facility], GRADUAL IMPROVEMENT ADMITTED iv fluid support, frequent bmp nephrology consult neurology consult dvt prophylaxis iv rocephin, urine culture blood culture ID CONSULT swallow study pt/ot/st POOR PROGNOSIS, remains critically ill, not eating well, consider palliative care soon, comp 04/14 now 39 min exam time, chart review, > 50% of time spent with exam, chart review, pt care coordination Vitals Vitals Vital Signs Date Time Temp Pulse Resp B/P (MAP) Pulse Ox O2 Delivery O2 Flow Rate FiO2 04/16/19 08:20 Room Air 04/16/19 07:00 97.8 60 18 153/80 (104) 96 97.8 Physical Exam Physical Exam GENERAL: Propped up in bed, alert, in NAD HEENT: Oc/op bacterial overgrowth NECK: Supple LUNGS: Decreased in the bases, no wheeze. HEART: S1, S2. ABDOMEN: Soft, nontender EXTREMITIES: no gross edema SKIN: Warm to touch without signs of rash. NEUROLOGIC: Alert, confused but does follow a few simple commands General: Alert, Cooperative, No acute distress Heart: Regular rate Lungs: Clear Abdomen: Normal bowel sounds, Soft, No tenderness Extremities: No cyanosis, No edema Skin: No rashes Labs LABS ATIENT: EVANS BELCHER ACCT: [id number] LOC: [address] [place] [address] U: [id number] AGE/SX: 83/F ROOM: [facility] RE04/12/[address]: JODY NUGER MD : [id number] BED: 1 DIS: STATUS: ADM IN TLOC: SPEC #: [id number] SUSANA: 04/12/19 STATUS: [place] REQ #: [id number] RECD: 04/12/[address] [facility] [address]: MELI FOURNIER Jr. DO SOURCE: BLOOD ENTR: 04/12/19-115 [facility] DR: OWEN [facility]: ORDERED: BCULT Procedure Result BLOOD CULTURE Final GRAM NEGATIVE RODS AND FEW GRAM POSITIVE COCCI. GROWTH IN ONE OF TWO BOTTLES OF ONE SET DRAWN. CALLED TO JENNIFER STARK ON 6S 04/13/19 AT 0720 BY [employer]. Assessment and Plan Assessmemt and Plan Problems Medical Problems: (1) Altered mental status Status: Acute (2) Dehydration Status: Acute (3) Hypernatremia Status: Acute (4) UTI (urinary tract infection) Status: Acute Comment Review of Relevant I have reviewed the following items shalini (where applicable) has been applied. Labs Laboratory Tests Test 04/15/19 10:00 04/15/19 10:24 Vancomycin Level Trough 4.9 mcg/mL (10.0-20.0) Vancomycin Last Dose Date 04/14/19 Vancomycin Last Dose Time 1000 Sodium Level 150 mmol/L (136-145) Potassium Level 3.4 mmol/L (3.5-5.1) Chloride Level 112 mmol/L (98-107) Carbon Dioxide Level 27 mmol/L (21-32) Anion Gap 11 (6-14) Blood Urea Nitrogen 13 mg/dL (7-20) Creatinine 0.8 mg/dL (0.6-1.0) Estimated GFR (Cockcroft-Gault) 82.5 Glucose Level 164 mg/dL (70-99) Calcium Level 8.8 mg/dL (8.5-10.1) Magnesium Level 1.9 mg/dL (1.8-2.4) Microbiology 04/13/19 Blood Culture - Preliminary, Resulted NO GROWTH AFTER 3 DAYS Medications Current Medications Sodium Chloride 1,000 ml @ 250 mls/hr 1X ONCE IV Last administered on 04/12/19at 12:15; Start 04/12/19 at 12:15; Stop 04/12/19 at 16:14; Status DC Sodium Chloride 500 ml @ 500 mls/hr 1X ONCE IV Last administered on 04/12/19at 13:43; Start 04/12/19 at 12:15; Stop 04/12/19 at 13:14; Status DC Ceftriaxone Sodium (Rocephin) 1 gm 1X ONCE IVP Last administered on 04/12/19at 13:44; Start 04/12/19 at 13:00; Stop 04/12/19 at 13:01; Status DC Ondansetron HCl (Zofran) 4 mg PRN Q8HRS PRN IV NAUSEA/VOMITING; Start 04/12/19 at 14:00; Stop 04/13/19 at 13:59; Status DC Sodium Chloride (Normal Saline Flush) 3 ml QSHIFT PRN IV AFTER MEDS AND BLOOD DRAWS; Start 04/12/19 at 20:30 Ondansetron HCl (Zofran) 4 mg PRN Q4HRS PRN IV NAUSEA/VOMITING; Start 04/12/19 at 20:30 Acetaminophen (Tylenol) 650 mg PRN Q4HRS PRN PO TEMP OVER 100.4F OR MILD PAIN; Start 04/12/19 at 20:30 Albuterol Sulfate (Ventolin Neb Soln) 2.5 mg PRN Q4HRS PRN NEB SHORTNESS OF BREATH; Start 04/12/19 at 20:30 Guaifenesin (Robitussin) 200 mg PRN Q4HRS PRN PO COUGH; Start 04/12/19 at 20:30 Lorazepam (Ativan) 0.5 mg PRN Q4HRS PRN PO ANXIETY / AGITATION; Start 04/12/19 at 20:30 Enoxaparin Sodium (Lovenox 30mg Syringe) 30 mg DAILY SQ Last administered on 04/16/19at 09:27; Start 04/13/19 at 09:00 Sodium Chloride 1,000 ml @ 75 mls/hr [id number] IV Last administered on 04/13/19at 03:34; Start 04/13/19 at 03:30; Stop 04/13/19 at 08:16; Status DC Vancomycin HCl 750 mg/Sodium Chloride 250 ml @ 250 mls/hr Q24H ONCE IV ; Start 04/13/19 at 08:00; Stop 04/13/19 at 08:59; Status UNV Piperacillin Sod/ Tazobactam Sod 2.25 gm/Sodium Chloride 50 ml @ 100 mls/hr Q6HRS IV Last administered on 04/16/19at 05:48; Start 04/13/19 at 08:00 Vancomycin HCl 1 gm/Sodium Chloride 250 ml @ 250 mls/hr 1X ONCE IV Last administered on 04/13/19at 09:39; Start 04/13/19 at 09:00; Stop 04/13/19 at 09:59; Status DC Vancomycin HCl (Vanco Per Pharmacy) 1 each PRN DAILY PRN MC SEE COMMENTS Last administered on 04/15/19at 11:19; Start 04/13/19 at 08:15 Dextrose/Sodium Chloride 1,000 ml @ 125 mls/hr Q8H IV Last administered on 04/16/19at 05:47; Start 04/13/19 at 08:30 Vancomycin HCl 750 mg/Sodium Chloride 250 ml @ 250 mls/hr Q24H IV Last administered on 04/15/19 11:04; Start 04/14/19 at 10:00; Stop 04/15/19 at 11:03; Status DC Vancomycin HCl (Vancomycin Trough Level) 1 each 1X ONCE MC Last administered on 04/15/19at 09:30; Start 04/15/19 at 09:30; Stop 04/15/19 at 09:31; Status DC Hydralazine HCl (Apresoline Inj) 10 mg PRN Q6HRS PRN IVP ELEVATED BP, SEE COMMENTS Last administered on 04/13/19at 14:14; Start 04/13/19 at 14:15 Potassium Chloride 30 meq/ Sodium Chloride 1,015 ml @ 75 mls/hr 1X ONCE IV Last administered on 04/14/19at 12:27; Start 04/14/19 at 11:30; Stop 04/15/19 at 01:01; Status DC Potassium Chloride/Water 100 ml @ 100 mls/hr Q1H IV Last administered on 04/15/19at 18:39; Start 04/15/19 at 10:00; Stop 04/15/19 at 13:59; Status DC Vancomycin HCl 750 mg/Sodium Chloride 250 ml @ 250 mls/hr Q12H IV Last administered on 04/16/19at 00:28; Start 04/15/19 at 12:00 Vancomycin HCl (Vancomycin Trough Level) 1 each 1X ONCE MC ; Start 04/16/19 at 11:30; Stop 04/16/19 at 11:31 Nystatin (Nystatin Oral Susp) 7.5 ml [id number] Last administered on 04/16/19at 09:27; Start 04/15/19 at 13:00 Active Scripts Active Reported Namenda Xr (Memantine Hcl) 28 Mg Cap.spr.24 28 Mg PO DAILY Miralax (Polyethylene Glycol 3350) 17 Gm Powd.pack 1 Packet PO DAILY dissolve in water Milk Of Magnesia (Magnesium Hydroxide) 400 Mg/5 Ml Oral.susp 400 Mg PO DAILY Furosemide 20 Mg Tablet 20 Mg PO DAILY Gabapentin 600 Mg Tablet 600 Mg PO QHS Gabapentin 300 Mg Capsule 300 Mg PO DAILY Docusate Sodium 100 Mg Capsule 100 Mg PO DAILY Children's Aspirin (Aspirin) 81 Mg Tab.chew 81 Mg PO DAILY Aricept (Donepezil Hcl) 10 Mg Tablet 10 Mg PO DAILY Amlodipine Besylate 5 Mg Tablet 5 Mg PO DAILY Acetaminophen 325 Mg/10.15 Ml Solution 650 Mg PO Q8HRS Vitals/I & O Vital Sign - Last 24 Hours 04/15/19 04/15/19 04/15/19 04/15/19 11:26 15:30 19:10 20:00 Temp 98.1 98.3 99.0 98.1 98.3 99.0 Pulse 63 63 70 Resp 16 18 16 B/P (MAP) 118/70 (86) 142/67 (92) 146/70 (95) Pulse Ox 95 94 95 O2 Delivery Room Air Room Air Room Air Room Air 04/15/19 04/16/19 04/16/19 04/16/19 23:20 02:56 07:00 08:20 Temp 98.2 98.2 97.8 98.2 98.2 97.8 Pulse 68 67 60 Resp 18 18 18 B/P (MAP) 145/68 (93) 150/79 (102) 153/80 (104) Pulse Ox 95 95 96 O2 Delivery Room Air Room Air Room Air Room Air Intake and Output 04/15/19 04/15/19 04/16/19 15:00 23:00 07:00 Intake Total 20 ml 0 ml Balance 20 ml 0 ml JODY UNGER MD Apr 16, 2019 11:16
[2019-04-16 12:55] LABS: VANC TR 13.4 mcg/mL (10.0-20.0)
--- NOTE | 2019-04-16 13:11 | PDOC ---
Infectious Disease Note Subjective Subjective Confused No fevers reported + BM ROS ROS no n/v/d/ Vital Sign Vital Signs Vital Signs Date Time Temp Pulse Resp B/P (MAP) Pulse Ox O2 Delivery O2 Flow Rate FiO2 04/16/19 11:00 98.1 64 18 175/81 (112) 96 Room Air 98.1 Physical Exam PHYSICAL EXAM GENERAL: Propped up in bed, alert, in NAD HEENT: Oc/op bacterial overgrowth NECK: Supple LUNGS: Decreased in the bases, no wheeze. HEART: S1, S2. ABDOMEN: Soft, nontender EXTREMITIES: no gross edema SKIN: Warm to touch without signs of rash. NEUROLOGIC: Alert, confused but does follow a few simple commands Labs Lab Laboratory Tests Test 04/16/19 12:23 Vancomycin Level Trough 13.4 mcg/mL (10.0-20.0) Vancomycin Last Dose Date 04-16-19 Vancomycin Last Dose Time 0000 Micro G neg niharika in blood Objective Assessment Bacteremia POA 04/12 GNR/GPC 1/2 bottles UTI 04/12 POA Leukocytosis - better Patchy infiltrates TANESHA - better Dehydration Electrolyte abn - better HTN ? demetia vs acute illness Bacterial overgrowth on tongue Left breast mass, Plan Plan of Care Cont Vanc and Zosyn Trough 4.9 F/u labs and cults Oral care electrolytes per primary d/c vanc cont zosyn, breast mass, possible malignancy, though pt is not a candidate for anything DNR/DNI DOMITILA STOKES MD Apr 16, 2019 13:11
--- NOTE | 2019-04-16 13:13 | PDOC ---
Infectious Disease Note Subjective Subjective Confused No fevers reported Vital Sign Vital Signs Vital Signs Date Time Temp Pulse Resp B/P (MAP) Pulse Ox O2 Delivery O2 Flow Rate FiO2 04/16/19 11:00 98.1 64 18 175/81 (112) 96 Room Air 98.1 Physical Exam PHYSICAL EXAM GENERAL: Propped up in bed, alert, in NAD HEENT: Oc/op bacterial overgrowth NECK: Supple LUNGS: Decreased in the bases, no wheeze. HEART: S1, S2. ABDOMEN: Soft, nontender EXTREMITIES: no gross edema SKIN: Warm to touch without signs of rash. NEUROLOGIC: Alert, confused but does follow a few simple commands RUE-PICC clean EJ Labs Lab Laboratory Tests Test 04/16/19 12:23 Vancomycin Level Trough 13.4 mcg/mL (10.0-20.0) Vancomycin Last Dose Date 04-16-19 Vancomycin Last Dose Time 0000 Micro Microbiology 04/13/19 Blood Culture - Preliminary, Resulted NO GROWTH AFTER 3 DAYS 04/12. BLOOD CULTURE Final GRAM NEGATIVE RODS AND FEW GRAM POSITIVE COCCI. GROWTH IN ONE OF TWO BOTTLES OF ONE SET DRAWN. Objective Assessment Bacteremia POA 04/12 GNR/GPC 1/2 bottles, ID still pending UTI 04/12 POA Leukocytosis - better Patchy infiltrates TANESHA - better Dehydration Electrolyte abn - better HTN ? demetia vs acute illness Bacterial overgrowth on tongue Plan Plan of Care Cont Vanc and Zosyn Trough 13.4 F/u labs and cults Depending on cult results (if not contamination) may need GI eval for source but currently abd is benign Oral care Maintain aspiration precautions Attending Co-Sign The patient was seen and interviewed as well as examined at the bedside. The chart was reviewed. The case was discussed. Agree with the plan of care. JEFF ENCISO APRN Apr 16, 2019 13:13 DOMITILA STOKES MD Apr 21, 2019 09:35
--- NOTE | 2019-04-16 13:42 | PDOC ---
Renal-Progress Notes Subjective Notes Notes STABLE History of Present Illness Hx of present illness IMPROVED Vitals Vitals Vital Signs Date Time Temp Pulse Resp B/P (MAP) Pulse Ox O2 Delivery O2 Flow Rate FiO2 04/16/19 11:00 98.1 64 18 175/81 (112) 96 Room Air 98.1 Weight Weight [ ] I.O. Intake and Output Intake and Output 04/16/19 07:00 Intake Total 20 ml Balance 20 ml Intake Oral 20 ml # Voids 5 # Bowel Movements 3 Labs Labs Laboratory Tests Test 04/16/19 12:23 Vancomycin Level Trough 13.4 mcg/mL (10.0-20.0) Vancomycin Last Dose Date 04-16-19 Vancomycin Last Dose Time 0000 Micro Micro Microbiology 04/13/19 Blood Culture - Preliminary, Resulted NO GROWTH AFTER 3 DAYS Review of Systems Constitutional: yes: other (UNRELIABLE) Physical Exam General Appearance: no apparent distress Skin: warm Respiratory: bilateral CTA Heart: S1S2 Abdomen: soft, bowel sounds present Extremities: pulses present Neurology: alert, follow commands Assessment Assessment IMP DEHYDRATION HYPERNATREMIA-IMPROVED MET ENCEPHALOPATHY DEMENTIA URINARY TRACT INFECTION LEUCOCYTOSIS HYPOKALEMIA PLAN ANTIBIOTICS HYDRATION REPLACE K FREE WATER WILL FOLLOW BRANDON WALLS MD Apr 16, 2019 13:42
[2019-04-16 15:00] VITALS: BP 154/89
[2019-04-16] MEDS: POTASSIUM CHLORIDE 10MEQ 100 ML IV SCH ×2 (15:06→16:32)
[2019-04-16 19:35] VITALS: BP 150/84
[2019-04-16 23:58] VITALS: BP 122/80
[2019-04-17] MEDS: IV DEXTROSE 5 %-0.2 % NACL 1,000 ML IV SCH ×2 (01:16→09:14)
[2019-04-17 03:30] VITALS: BP 141/72
[2019-04-17] MEDS: PIPERACILLIN/TAZOBACTAM 2.25 GM in IV NORMAL SALINE 50ML 50 ML IV SCH ×4 (05:31→23:30)
[2019-04-17 05:59] LABS: BASO # 0.1 x10^3/uL (0.0-0.2); BASO % 1 % (0-3); EOS # 0.4 x10^3/uL (0.0-0.7); EOS % 5 % (0-3); HEMATOCRIT 40.1 % (36.0-47.0); LYMPH # 2.5 x10^3/uL (1.0-4.8); LYMPH % 30 % (24-48); MEAN CORPUSCULAR HEMOGLOBIN 27 pg (25-35); MEAN CORPUSCULAR HGB CONC 32 g/dL (31-37); MEAN CORPUSCULAR VOLUME 83 fL (79-100); MONO # 0.6 x10^3/uL (0.0-1.1); MONO % 8 % (0-9); NEUT # 4.5 x10^3/uL (1.8-7.7); NEUT % 56 % (31-73); PLATELET COUNT 154 x10^3/uL (140-400); RED BLOOD COUNT 4.83 x10^6/uL (3.50-5.40); RED CELL DISTRIBUTION WIDTH 14.5 % (11.5-14.5); WHITE BLOOD COUNT 8.1 x10^3/uL (4.0-11.0)
[2019-04-17 06:19] LABS: ALBUMIN 2.6 g/dL (3.4-5.0); CREATININE 0.8 mg/dL (0.6-1.0); GFR 82.5; MAGNESIUM 1.5 mg/dL (1.8-2.4); PHOSPHORUS 2.6 mg/dL (2.6-4.7)
[2019-04-17 07:00] VITALS: BP 112/68
--- NOTE | 2019-04-17 08:15 | PDOC ---
PROGRESS NOTES History of Present Illness History of Present Illness VTE Prophylaxis Ordered VTE Prophylaxis Devices: No VTE Pharmacological Prophylaxi: Yes Assessment/Plan Assessment/Plan Impression: Hypernatremia, volume depleted, severe acute metabolic encephalopathy UTI (urinary tract infection) Dehydration SEPSIS SEVERE PROTEIN-CALORIC MALNUTRITION Bacteremia POA 04/12 GNR/GPC 1/2 bottles Altered mental status No acute intracranial process. Moderate cerebral volume loss. Mild chronic small vessel ischemic disease. Dilation of the lateral and third ventricles, slightly out of proportion to the degree of cerebral volume loss. This could relate to advanced central atrophy, although normal pressure hydrocephalus could have a similar appearance. 04/16 [facility], GRADUAL IMPROVEMENT ADMITTED iv fluid support, frequent bmp nephrology consult neurology consult dvt prophylaxis iv rocephin, urine culture blood culture ID CONSULT swallow study pt/ot/st FAIR PROGNOSIS, remains critically ill, not eating well, consider palliative care soon, comp 04/14 now 29 min exam time, chart review, > 50% of time spent with exam, chart review, pt care coordination Vitals Vitals Vital Signs Date Time Temp Pulse Resp B/P (MAP) Pulse Ox O2 Delivery O2 Flow Rate FiO2 04/17/19 03:30 98.4 72 20 141/72 (95) 97 Room Air 98.4 Physical Exam Physical Exam GENERAL: Propped up in bed, alert, in NAD HEENT: Oc/op bacterial overgrowth NECK: Supple LUNGS: Decreased in the bases, no wheeze. HEART: S1, S2. ABDOMEN: Soft, nontender EXTREMITIES: no gross edema SKIN: Warm to touch without signs of rash. NEUROLOGIC: Alert, confused but does follow a few simple commands RUE-PICC clean EJ General: Alert, Cooperative, No acute distress Heart: Regular rate Lungs: Clear Abdomen: Normal bowel sounds, Soft, No tenderness Extremities: No cyanosis, No edema Skin: No rashes Labs LABS Laboratory Tests Test 04/16/19 12:23 04/17/19 05:15 Vancomycin Level Trough 13.4 mcg/mL (10.0-20.0) Vancomycin Last Dose Date 04-16-19 Vancomycin Last Dose Time 0000 White Blood Count 8.1 x10^3/uL (4.0-11.0) Red Blood Count 4.83 x10^6/uL (3.50-5.40) Hemoglobin 13.0 g/dL (12.0-15.5) Hematocrit 40.1 % (36.0-47.0) Mean Corpuscular Volume 83 fL (79-100) Mean Corpuscular Hemoglobin 27 pg (25-35) Mean Corpuscular Hemoglobin Concent 32 g/dL (31-37) Red Cell Distribution Width 14.5 % (11.5-14.5) Platelet Count 154 x10^3/uL (140-400) Neutrophils (%) (Auto) 56 % (31-73) Lymphocytes (%) (Auto) 30 % (24-48) Monocytes (%) (Auto) 8 % (0-9) Eosinophils (%) (Auto) 5 % (0-3) Basophils (%) (Auto) 1 % (0-3) Neutrophils # (Auto) 4.5 x10^3/uL (1.8-7.7) Lymphocytes # (Auto) 2.5 x10^3/uL (1.0-4.8) Monocytes # (Auto) 0.6 x10^3/uL (0.0-1.1) Eosinophils # (Auto) 0.4 x10^3/uL (0.0-0.7) Basophils # (Auto) 0.1 x10^3/uL (0.0-0.2) Sodium Level 143 mmol/L (136-145) Potassium Level 3.0 mmol/L (3.5-5.1) Chloride Level 107 mmol/L (98-107) Carbon Dioxide Level 28 mmol/L (21-32) Anion Gap 8 (6-14) Blood Urea Nitrogen 4 mg/dL (7-20) Creatinine 0.8 mg/dL (0.6-1.0) Estimated GFR (Cockcroft-Gault) 82.5 Glucose Level 174 mg/dL (70-99) Calcium Level 8.0 mg/dL (8.5-10.1) Phosphorus Level 2.6 mg/dL (2.6-4.7) Magnesium Level 1.5 mg/dL (1.8-2.4) Albumin 2.6 g/dL (3.4-5.0) Assessment and Plan Assessmemt and Plan Problems Medical Problems: (1) Altered mental status Status: Acute (2) Dehydration Status: Acute (3) Hypernatremia Status: Acute (4) UTI (urinary tract infection) Status: Acute Comment Review of Relevant I have reviewed the following items shalini (where applicable) has been applied. Labs Laboratory Tests Test 04/15/19 10:00 04/15/19 10:24 04/16/19 12:23 04/17/19 05:15 Vancomycin Level Trough 4.9 mcg/mL (10.0-20.0) 13.4 mcg/mL (10.0-20.0) Vancomycin Last Dose Date 04/14/19 04-16-19 Vancomycin Last Dose Time 1000 0000 Sodium Level 150 mmol/L (136-145) 143 mmol/L (136-145) Potassium Level 3.4 mmol/L (3.5-5.1) 3.0 mmol/L (3.5-5.1) Chloride Level 112 mmol/L (98-107) 107 mmol/L (98-107) Carbon Dioxide Level 27 mmol/L (21-32) 28 mmol/L (21-32) Anion Gap 11 (6-14) 8 (6-14) Blood Urea Nitrogen 13 mg/dL (7-20) 4 mg/dL (7-20) Creatinine 0.8 mg/dL (0.6-1.0) 0.8 mg/dL (0.6-1.0) Estimated GFR (Cockcroft-Gault) 82.5 82.5 Glucose Level 164 mg/dL (70-99) 174 mg/dL (70-99) Calcium Level 8.8 mg/dL (8.5-10.1) 8.0 mg/dL (8.5-10.1) Magnesium Level 1.9 mg/dL (1.8-2.4) 1.5 mg/dL (1.8-2.4) White Blood Count 8.1 x10^3/uL (4.0-11.0) Red Blood Count 4.83 x10^6/uL (3.50-5.40) Hemoglobin 13.0 g/dL (12.0-15.5) Hematocrit 40.1 % (36.0-47.0) Mean Corpuscular Volume 83 fL (79-100) Mean Corpuscular Hemoglobin 27 pg (25-35) Mean Corpuscular Hemoglobin Concent 32 g/dL (31-37) Red Cell Distribution Width 14.5 % (11.5-14.5) Platelet Count 154 x10^3/uL (140-400) Neutrophils (%) (Auto) 56 % (31-73) Lymphocytes (%) (Auto) 30 % (24-48) Monocytes (%) (Auto) 8 % (0-9) Eosinophils (%) (Auto) 5 % (0-3) Basophils (%) (Auto) 1 % (0-3) Neutrophils # (Auto) 4.5 x10^3/uL (1.8-7.7) Lymphocytes # (Auto) 2.5 x10^3/uL (1.0-4.8) Monocytes # (Auto) 0.6 x10^3/uL (0.0-1.1) Eosinophils # (Auto) 0.4 x10^3/uL (0.0-0.7) Basophils # (Auto) 0.1 x10^3/uL (0.0-0.2) Phosphorus Level 2.6 mg/dL (2.6-4.7) Albumin 2.6 g/dL (3.4-5.0) Laboratory Tests Test 04/16/19 12:23 04/17/19 05:15 Vancomycin Level Trough 13.4 mcg/mL (10.0-20.0) Vancomycin Last Dose Date 04-16-19 Vancomycin Last Dose Time 0000 White Blood Count 8.1 x10^3/uL (4.0-11.0) Red Blood Count 4.83 x10^6/uL (3.50-5.40) Hemoglobin 13.0 g/dL (12.0-15.5) Hematocrit 40.1 % (36.0-47.0) Mean Corpuscular Volume 83 fL (79-100) Mean Corpuscular Hemoglobin 27 pg (25-35) Mean Corpuscular Hemoglobin Concent 32 g/dL (31-37) Red Cell Distribution Width 14.5 % (11.5-14.5) Platelet Count 154 x10^3/uL (140-400) Neutrophils (%) (Auto) 56 % (31-73) Lymphocytes (%) (Auto) 30 % (24-48) Monocytes (%) (Auto) 8 % (0-9) Eosinophils (%) (Auto) 5 % (0-3) Basophils (%) (Auto) 1 % (0-3) Neutrophils # (Auto) 4.5 x10^3/uL (1.8-7.7) Lymphocytes # (Auto) 2.5 x10^3/uL (1.0-4.8) Monocytes # (Auto) 0.6 x10^3/uL (0.0-1.1) Eosinophils # (Auto) 0.4 x10^3/uL (0.0-0.7) Basophils # (Auto) 0.1 x10^3/uL (0.0-0.2) Sodium Level 143 mmol/L (136-145) Potassium Level 3.0 mmol/L (3.5-5.1) Chloride Level 107 mmol/L (98-107) Carbon Dioxide Level 28 mmol/L (21-32) Anion Gap 8 (6-14) Blood Urea Nitrogen 4 mg/dL (7-20) Creatinine 0.8 mg/dL (0.6-1.0) Estimated GFR (Cockcroft-Gault) 82.5 Glucose Level 174 mg/dL (70-99) Calcium Level 8.0 mg/dL (8.5-10.1) Phosphorus Level 2.6 mg/dL (2.6-4.7) Magnesium Level 1.5 mg/dL (1.8-2.4) Albumin 2.6 g/dL (3.4-5.0) Microbiology 04/13/19 Blood Culture - Preliminary, Resulted NO GROWTH AFTER 3 DAYS Medications Current Medications Sodium Chloride 1,000 ml @ 250 mls/hr 1X ONCE IV Last administered on 04/12/19at 12:15; Start 04/12/19 at 12:15; Stop 04/12/19 at 16:14; Status DC Sodium Chloride 500 ml @ 500 mls/hr 1X ONCE IV Last administered on 04/12/19at 13:43; Start 04/12/19 at 12:15; Stop 04/12/19 at 13:14; Status DC Ceftriaxone Sodium (Rocephin) 1 gm 1X ONCE IVP Last administered on 04/12/19at 13:44; Start 04/12/19 at 13:00; Stop 04/12/19 at 13:01; Status DC Ondansetron HCl (Zofran) 4 mg PRN Q8HRS PRN IV NAUSEA/VOMITING; Start 04/12/19 at 14:00; Stop 04/13/19 at 13:59; Status DC Sodium Chloride (Normal Saline Flush) 3 ml QSHIFT PRN IV AFTER MEDS AND BLOOD DRAWS; Start 04/12/19 at 20:30 Ondansetron HCl (Zofran) 4 mg PRN Q4HRS PRN IV NAUSEA/VOMITING; Start 04/12/19 at 20:30 Acetaminophen (Tylenol) 650 mg PRN Q4HRS PRN PO TEMP OVER 100.4F OR MILD PAIN; Start 04/12/19 at 20:30 Albuterol Sulfate (Ventolin Neb Soln) 2.5 mg PRN Q4HRS PRN NEB SHORTNESS OF BREATH; Start 04/12/19 at 20:30 Guaifenesin (Robitussin) 200 mg PRN Q4HRS PRN PO COUGH; Start 04/12/19 at 20:30 Lorazepam (Ativan) 0.5 mg PRN Q4HRS PRN PO ANXIETY / AGITATION; Start 04/12/19 at 20:30 Enoxaparin Sodium (Lovenox 30mg Syringe) 30 mg DAILY SQ Last administered on 04/16/19at 09:27; Start 04/13/19 at 09:00 Sodium Chloride 1,000 ml @ 75 mls/hr [id number] IV Last administered on 04/13/19at 03:34; Start 04/13/19 at 03:30; Stop 04/13/19 at 08:16; Status DC Vancomycin HCl 750 mg/Sodium Chloride 250 ml @ 250 mls/hr Q24H ONCE IV ; Start 04/13/19 at 08:00; Stop 04/13/19 at 08:59; Status UNV Piperacillin Sod/ Tazobactam Sod 2.25 gm/Sodium Chloride 50 ml @ 100 mls/hr Q6HRS IV Last administered on 04/17/19at 05:31; Start 04/13/19 at 08:00 Vancomycin HCl 1 gm/Sodium Chloride 250 ml @ 250 mls/hr 1X ONCE IV Last administered on 04/13/19at 09:39; Start 04/13/19 at 09:00; Stop 04/13/19 at 09:59; Status DC Vancomycin HCl (Vanco Per Pharmacy) 1 each PRN DAILY PRN MC SEE COMMENTS Last administered on 04/15/19at 11:19; Start 04/13/19 at 08:15; Stop 04/16/19 at 13:11; Status DC Dextrose/Sodium Chloride 1,000 ml @ 125 mls/hr Q8H IV Last administered on 04/17/19at 01:16; Start 04/13/19 at 08:30 Vancomycin HCl 750 mg/Sodium Chloride 250 ml @ 250 mls/hr Q24H IV Last administered on 04/15/19 11:04; Start 04/14/19 at 10:00; Stop 04/15/19 at 11:03; Status DC Vancomycin HCl (Vancomycin Trough Level) 1 each 1X ONCE MC Last administered on 04/15/19at 09:30; Start 04/15/19 at 09:30; Stop 04/15/19 at 09:31; Status DC Hydralazine HCl (Apresoline Inj) 10 mg PRN Q6HRS PRN IVP ELEVATED BP, SEE COMMENTS Last administered on 04/13/19at 14:14; Start 04/13/19 at 14:15 Potassium Chloride 30 meq/ Sodium Chloride 1,015 ml @ 75 mls/hr 1X ONCE IV Last administered on 04/14/19 12:27; Start 04/14/19 at 11:30; Stop 04/15/19 at 01:01; Status DC Potassium Chloride/Water 100 ml @ 100 mls/hr Q1H IV Last administered on 1 06/16/18at 18:39; Start 04/15/19 at 10:00; Stop 04/15/19 at 13:59; Status DC Vancomycin HCl 750 mg/Sodium Chloride 250 ml @ 250 mls/hr Q12H IV Last administered on 04/16/19at 12:28; Start 04/15/19 at 12:00; Stop 04/16/19 at 13:11; Status DC Vancomycin HCl (Vancomycin Trough Level) 1 each 1X ONCE MC Last administered on 04/16/19 11:30; Start 04/16/19 at 11:30; Stop 04/16/19 at 11:31; Status DC Nystatin (Nystatin Oral Susp) 7.5 ml [id number] Last administered on 04/16/19at 20:39; Start 04/15/19 at 13:00 Potassium Chloride/Water 100 ml @ 100 mls/hr Q1H IV Last administered on 12/15/19at 16:32; Start 04/16/19 at 14:00; Stop 04/16/19 at 15:59; Status DC Active Scripts Active Reported Namenda Xr (Memantine Hcl) 28 Mg Cap.spr.24 28 Mg PO DAILY Miralax (Polyethylene Glycol 3350) 17 Gm Powd.pack 1 Packet PO DAILY dissolve in water Milk Of Magnesia (Magnesium Hydroxide) 400 Mg/5 Ml Oral.susp 400 Mg PO DAILY Furosemide 20 Mg Tablet 20 Mg PO DAILY Gabapentin 600 Mg Tablet 600 Mg PO QHS Gabapentin 300 Mg Capsule 300 Mg PO DAILY Docusate Sodium 100 Mg Capsule 100 Mg PO DAILY Children's Aspirin (Aspirin) 81 Mg Tab.chew 81 Mg PO DAILY Aricept (Donepezil Hcl) 10 Mg Tablet 10 Mg PO DAILY Amlodipine Besylate 5 Mg Tablet 5 Mg PO DAILY Acetaminophen 325 Mg/10.15 Ml Solution 650 Mg PO Q8HRS Vitals/I & O Vital Sign - Last 24 Hours 04/16/19 04/16/19 04/16/19 04/16/19 08:20 11:00 15:00 19:35 Temp 98.1 98.5 98.9 98.1 98.5 98.9 Pulse 64 72 83 Resp 18 18 20 B/P (MAP) 175/81 (112) 154/89 (110) 150/84 (106) Pulse Ox 96 95 95 O2 Delivery Room Air Room Air Room Air Room Air 04/16/19 04/16/19 04/17/19 20:00 23:58 03:30 Temp 98.5 98.4 98.5 98.4 Pulse 70 72 Resp 20 20 B/P (MAP) 122/80 (94) 141/72 (95) Pulse Ox 95 97 O2 Delivery Room Air Room Air Room Air Intake and Output 04/16/19 04/16/19 04/17/19 14:59 22:59 06:59 Intake Total 300 ml 220 ml 200 ml Balance 300 ml 220 ml 200 ml JODY UNGER MD Apr 17, 2019 08:15
[2019-04-17] MEDS: NYSTATIN 100,000 UNITS/ML 5 ML ORAL.SUSP. SWSW SCH ×4 (09:09→21:16)
[2019-04-17] MEDS: ENOXAPARIN 30 MG/0.3 ML SYRINGE. SQ SCH (09:09)
--- NOTE | 2019-04-17 10:47 | PDOC ---
SUBJECTIVE ROS Stable, No concerns voiced by RN OBJECTIVE Vital Signs Vital Signs Date Time Temp Pulse Resp B/P (MAP) Pulse Ox O2 Delivery O2 Flow Rate FiO2 04/17/19 08:00 Room Air 04/17/19 07:00 97.8 94 20 112/68 (83) 99 97.8 I & 0 Intake and Output 04/17/19 07:00 Intake Total 720 ml Balance 720 ml Intake Oral 320 ml IV Total 400 ml # Voids 7 # Bowel Movements 3 PHYSICAL EXAM Physical Exam GENERAL:NAD HEENT: OM moist NECK: Supple LUNGS: Decreased in the bases HEART: S1, S2. ABDOMEN: Soft, nontender EXTREMITIES: no gross edema SKIN: Warm to touch without signs of rash. NEUROLOGIC: Alert, confused but does follow a few simple commands No machado DIAGNOSIS/ASSESSMENT Assessment & Plan TANESHA- resolved Dehydration- resolved HyperNatremia -resolved Dementia UTI- Abx per ID Bacteremia - ID HypoKalemia - replace as needed Will sign off COMMENT/RELEVANT DATA Meds Current Medications Medications (Trade) Dose Ordered Sig/[place] Start Time Stop Time Status Last Admin Dose Admin Acetaminophen (Tylenol) 650 mg PRN Q4HRS PRN 04/12/19 20:30 Albuterol Sulfate (Ventolin Neb Soln) 2.5 mg PRN Q4HRS PRN 04/12/19 20:30 Ceftriaxone Sodium (Rocephin) 1 gm 1X ONCE 04/12/19 13:00 04/12/19 13:01 DC 04/12/19 13:44 1 GM Dextrose/Sodium Chloride 1,000 ml @ 125 mls/hr Q8H 04/13/19 08:30 04/17/19 09:14 125 MLS/HR Enoxaparin Sodium (Lovenox 30mg Syringe) 30 mg DAILY 04/13/19 09:00 04/17/19 09:09 30 MG Guaifenesin (Robitussin) 200 mg PRN Q4HRS PRN 04/12/19 20:30 Hydralazine HCl (Apresoline Inj) 10 mg PRN Q6HRS PRN 04/13/19 14:15 04/13/19 14:14 10 MG Lorazepam (Ativan) 0.5 mg PRN Q4HRS PRN 04/12/19 20:30 Nystatin (Nystatin Oral Susp) 7.5 ml [id number] 04/15/19 13:00 04/17/19 09:09 7.5 ML Ondansetron HCl (Zofran) 4 mg PRN Q4HRS PRN 04/12/19 20:30 Piperacillin Sod/ Tazobactam Sod 2.25 gm/Sodium Chloride 50 ml @ 100 mls/hr Q6HRS 04/13/19 08:00 04/17/19 05:31 100 MLS/HR Potassium Chloride 30 meq/ Sodium Chloride 1,015 ml @ 75 mls/hr 1X ONCE 04/14/19 11:30 04/15/19 01:01 DC 04/14/19 12:27 75 MLS/HR Potassium Chloride/Water 100 ml @ 100 mls/hr Q1H 04/16/19 14:00 04/16/19 15:59 DC 04/16/19 16:32 100 MLS/HR Sodium Chloride 1,000 ml @ 75 mls/hr [id number] 04/13/19 03:30 04/13/19 08:16 DC 04/13/19 03:34 75 MLS/HR Sodium Chloride (Normal Saline Flush) 3 ml QSHIFT PRN 04/12/19 20:30 Vancomycin HCl (Vanco Per Pharmacy) 1 each PRN DAILY PRN 04/13/19 08:15 04/16/19 13:11 DC 04/15/19 11:19 1 EACH Vancomycin HCl (Vancomycin Trough Level) 1 each 1X ONCE 04/16/19 11:30 04/16/19 11:31 DC 04/16/19 11:30 1 EACH Vancomycin HCl 750 mg/Sodium Chloride 250 ml @ 250 mls/hr Q12H 04/15/19 12:00 04/16/19 13:11 DC 04/16/19 12:28 250 MLS/HR Vancomycin HCl 1 gm/Sodium Chloride 250 ml @ 250 mls/hr 1X ONCE 04/13/19 09:00 04/13/19 09:59 DC 04/13/19 09:39 250 MLS/HR Lab Laboratory Tests Test 04/16/19 12:23 04/17/19 05:15 Vancomycin Level Trough 13.4 mcg/mL (10.0-20.0) Vancomycin Last Dose Date 04-16-19 Vancomycin Last Dose Time 0000 White Blood Count 8.1 x10^3/uL (4.0-11.0) Red Blood Count 4.83 x10^6/uL (3.50-5.40) Hemoglobin 13.0 g/dL (12.0-15.5) Hematocrit 40.1 % (36.0-47.0) Mean Corpuscular Volume 83 fL (79-100) Mean Corpuscular Hemoglobin 27 pg (25-35) Mean Corpuscular Hemoglobin Concent 32 g/dL (31-37) Red Cell Distribution Width 14.5 % (11.5-14.5) Platelet Count 154 x10^3/uL (140-400) Neutrophils (%) (Auto) 56 % (31-73) Lymphocytes (%) (Auto) 30 % (24-48) Monocytes (%) (Auto) 8 % (0-9) Eosinophils (%) (Auto) 5 % (0-3) Basophils (%) (Auto) 1 % (0-3) Neutrophils # (Auto) 4.5 x10^3/uL (1.8-7.7) Lymphocytes # (Auto) 2.5 x10^3/uL (1.0-4.8) Monocytes # (Auto) 0.6 x10^3/uL (0.0-1.1) Eosinophils # (Auto) 0.4 x10^3/uL (0.0-0.7) Basophils # (Auto) 0.1 x10^3/uL (0.0-0.2) Sodium Level 143 mmol/L (136-145) Potassium Level 3.0 mmol/L (3.5-5.1) Chloride Level 107 mmol/L (98-107) Carbon Dioxide Level 28 mmol/L (21-32) Anion Gap 8 (6-14) Blood Urea Nitrogen 4 mg/dL (7-20) Creatinine 0.8 mg/dL (0.6-1.0) Estimated GFR (Cockcroft-Gault) 82.5 Glucose Level 174 mg/dL (70-99) Calcium Level 8.0 mg/dL (8.5-10.1) Phosphorus Level 2.6 mg/dL (2.6-4.7) Magnesium Level 1.5 mg/dL (1.8-2.4) Albumin 2.6 g/dL (3.4-5.0) Results All relevant outside records, renal labs, imaging studies, telemetry/EKG's were reviewed. JOSE GUADALUPE PINA MD Apr 17, 2019 10:47
[2019-04-17 11:49] VITALS: BP 121/74
--- NOTE | 2019-04-17 12:24 | PDOC ---
Infectious Disease Note Subjective Subjective Confused No fevers reported ROS ROS no n/v/d/sob Vital Sign Vital Signs Vital Signs Date Time Temp Pulse Resp B/P (MAP) Pulse Ox O2 Delivery O2 Flow Rate FiO2 04/17/19 11:49 97.9 88 20 121/74 (90) 99 Room Air 97.9 Physical Exam PHYSICAL EXAM GENERAL: Propped up in bed, alert, in NAD HEENT: Oc/op bacterial overgrowth NECK: Supple LUNGS: Decreased in the bases, no wheeze. HEART: S1, S2. ABDOMEN: Soft, nontender EXTREMITIES: no gross edema SKIN: Warm to touch without signs of rash. NEUROLOGIC: Alert, confused but does follow a few simple commands RUE-PICC clean EJ Labs Lab Laboratory Tests Test 04/17/19 05:15 White Blood Count 8.1 x10^3/uL (4.0-11.0) Red Blood Count 4.83 x10^6/uL (3.50-5.40) Hemoglobin 13.0 g/dL (12.0-15.5) Hematocrit 40.1 % (36.0-47.0) Mean Corpuscular Volume 83 fL (79-100) Mean Corpuscular Hemoglobin 27 pg (25-35) Mean Corpuscular Hemoglobin Concent 32 g/dL (31-37) Red Cell Distribution Width 14.5 % (11.5-14.5) Platelet Count 154 x10^3/uL (140-400) Neutrophils (%) (Auto) 56 % (31-73) Lymphocytes (%) (Auto) 30 % (24-48) Monocytes (%) (Auto) 8 % (0-9) Eosinophils (%) (Auto) 5 % (0-3) Basophils (%) (Auto) 1 % (0-3) Neutrophils # (Auto) 4.5 x10^3/uL (1.8-7.7) Lymphocytes # (Auto) 2.5 x10^3/uL (1.0-4.8) Monocytes # (Auto) 0.6 x10^3/uL (0.0-1.1) Eosinophils # (Auto) 0.4 x10^3/uL (0.0-0.7) Basophils # (Auto) 0.1 x10^3/uL (0.0-0.2) Sodium Level 143 mmol/L (136-145) Potassium Level 3.0 mmol/L (3.5-5.1) Chloride Level 107 mmol/L (98-107) Carbon Dioxide Level 28 mmol/L (21-32) Anion Gap 8 (6-14) Blood Urea Nitrogen 4 mg/dL (7-20) Creatinine 0.8 mg/dL (0.6-1.0) Estimated GFR (Cockcroft-Gault) 82.5 Glucose Level 174 mg/dL (70-99) Calcium Level 8.0 mg/dL (8.5-10.1) Phosphorus Level 2.6 mg/dL (2.6-4.7) Magnesium Level 1.5 mg/dL (1.8-2.4) Albumin 2.6 g/dL (3.4-5.0) Micro BLOOD CULTURE LC Final Preliminary report Final report BLD CULT RESULT 1 Final Gram negative rods Proteus mirabilis Performed at: [facility] [id number], [place] [id number] Public Records Officer: SHIMON Sánchez MD, Phone: [phone] ANTIMICROBIAL SUSCEPTIBILITY Final Comment S = Susceptible; I = Intermediate; R = Resistant P = Positive; N = Negative MICS are expressed in micrograms per mL Antibiotic RSLT#1 RSLT#2 RSLT#3 RSLT#4 Amoxicillin/Clavulanic Acid S<=2 Ampicillin S<=2 Cefepime S<=0.12 Ceftriaxone S<=0.25 Cefuroxime S<=1 Ciprofloxacin S<=0.25 Ertapenem S<=0.12 Gentamicin S<=1 Levofloxacin S<=0.12 Meropenem S<=0.25 Nitrofurantoin R =128 Piperacillin/Tazobactam S<=4 Tetracycline R>=16 Tobramycin S<=1 Trimethoprim/Sulfa S<=20 Performed at: [address], [place], [place] [id number] Public Records Officer: SHIMON Sánchez MD, Phone: [phone] Objective Assessment Bacteremia POA 04/12 proteus UTI 04/12 POA Leukocytosis - better Patchy infiltrates TANESHA - better Dehydration Electrolyte abn - better HTN ? demetia vs acute illness Bacterial overgrowth on tongue Left breast mass, Plan Plan of Care Cont Zosyn F/u labs and cults Depending on cult results (if not contamination) may need GI eval for source but currently abd is benign Oral care Maintain aspiration precautions DOMITILA STOKES MD Apr 17, 2019 12:24
--- NOTE | 2019-04-17 14:25 | PDOC ---
PROGRESS NOTES Assessment Assessment IMPRESSION: Metabolic encephalopathy. Hypernatremia. UTI. Sepsis. HTN. Brain volume loss. AD. Other medical diseases. RECOMMENDATIONS/PLAN: Continue medical treatment. Continue ID treatment. OT/PT. FU with PCP. Past Medical History Cardiovascular: HTN CENTRAL NERVOUS SYSTEM: CVA, Dementia (Alzheimers) GI: GERD Musculoskeletal: low back pain, Osteoarthritis Past Surgical History Cataract Removal, Hysterectomy, Other (back) Family History No pertinent hx Social History , no tobacco, alcohol, long-term resident Allergies Coded Allergies: Oxycodone (Verified Allergy, Intermediate, Unknown, 04/12/19) ROS Negative for fever, chills, weight loss, shortness of breath, chest pain, indigestion, hematochezia, melena, and dysuria. Full 14-point review of systems is negative. MEDICATIONS: Refer to MAR PHYSICAL EXAMINATION: General appearance in chronic distress. HEENT: Normocephalic and nontraumatic. Eyes, nose, ears, and throat are unremarkable. Hearing decrease. Neck is supple. No lymphadenopathy. No Crepitus. Cardiovascular: S1, S2, regular rate and rhythm. Pulmonary: Clear to auscultation bilaterally. Abdomen: Bowel sounds are positive. Extremities: No rash, lesions, or edema. No restriction of range of motion NEUROLOGICAL EXAMINATION: Awake. Not oriented to time, place and person. Not able to communicate. PERRL. EOMI. CN: no focal findings. Muscle tone: within normal. Muscle strength: 4+ DTR: 2- Plantar reflex: Neutral response bilaterally Gait: not examined in bed. Sensory exam: no abnormal findings. No other cerebellar signs elicited. F-T-N test not examed due to not follow commands. Objective Objective Vital Signs Date Time Temp Pulse Resp B/P (MAP) Pulse Ox O2 Delivery O2 Flow Rate FiO2 04/17/19 11:49 97.9 88 20 121/74 (90) 99 Room Air 97.9 Intake and Output 04/17/19 07:00 Intake Total 720 ml Balance 720 ml Intake Oral 320 ml IV Total 400 ml # Voids 7 # Bowel Movements 3 Vitals Signs Vitals VS - Last 72 Hours, by Label Date Time Temp Pulse Resp B/P (MAP) Pulse Ox O2 Delivery O2 Flow Rate FiO2 04/17/19 11:49 97.9 88 20 121/74 (90) 99 Room Air 97.9 04/17/19 08:00 Room Air 04/17/19 07:00 97.8 94 20 112/68 (83) 99 Room Air 97.8 04/17/19 03:30 98.4 72 20 141/72 (95) 97 Room Air 98.4 04/16/19 23:58 98.5 70 20 122/80 (94) 95 Room Air 98.5 04/16/19 20:00 Room Air 04/16/19 19:35 98.9 83 20 150/84 (106) 95 Room Air 98.9 04/16/19 15:00 98.5 72 18 154/89 (110) 95 Room Air 98.5 04/16/19 11:00 98.1 64 18 175/81 (112) 96 Room Air 98.1 04/16/19 08:20 Room Air 04/16/19 07:00 97.8 60 18 153/80 (104) 96 Room Air 97.8 Laboratory Laboratory Laboratory Tests Test 04/17/19 05:15 White Blood Count 8.1 x10^3/uL (4.0-11.0) Red Blood Count 4.83 x10^6/uL (3.50-5.40) Hemoglobin 13.0 g/dL (12.0-15.5) Hematocrit 40.1 % (36.0-47.0) Mean Corpuscular Volume 83 fL (79-100) Mean Corpuscular Hemoglobin 27 pg (25-35) Mean Corpuscular Hemoglobin Concent 32 g/dL (31-37) Red Cell Distribution Width 14.5 % (11.5-14.5) Platelet Count 154 x10^3/uL (140-400) Neutrophils (%) (Auto) 56 % (31-73) Lymphocytes (%) (Auto) 30 % (24-48) Monocytes (%) (Auto) 8 % (0-9) Eosinophils (%) (Auto) 5 % (0-3) Basophils (%) (Auto) 1 % (0-3) Neutrophils # (Auto) 4.5 x10^3/uL (1.8-7.7) Lymphocytes # (Auto) 2.5 x10^3/uL (1.0-4.8) Monocytes # (Auto) 0.6 x10^3/uL (0.0-1.1) Eosinophils # (Auto) 0.4 x10^3/uL (0.0-0.7) Basophils # (Auto) 0.1 x10^3/uL (0.0-0.2) Sodium Level 143 mmol/L (136-145) Potassium Level 3.0 mmol/L (3.5-5.1) Chloride Level 107 mmol/L (98-107) Carbon Dioxide Level 28 mmol/L (21-32) Anion Gap 8 (6-14) Blood Urea Nitrogen 4 mg/dL (7-20) Creatinine 0.8 mg/dL (0.6-1.0) Estimated GFR (Cockcroft-Gault) 82.5 Glucose Level 174 mg/dL (70-99) Calcium Level 8.0 mg/dL (8.5-10.1) Phosphorus Level 2.6 mg/dL (2.6-4.7) Magnesium Level 1.5 mg/dL (1.8-2.4) Albumin 2.6 g/dL (3.4-5.0) Microbiology 04/13/19 Blood Culture - Preliminary, Resulted NO GROWTH AFTER 4 DAYS Comment Review of Relevant I have reviewed the following items shalini (where applicable) has been applied. OLGA LUJAN MD Apr 17, 2019 14:25
[2019-04-17 14:41] VITALS: BP 128/76
[2019-04-17] MEDS ORDERED: POTASSIUM CHLORIDE 20 MEQ TABLET.ER. PO ONE (15:15)
[2019-04-17] MEDS ORDERED: MAGNESIUM SULFATE 2GM 50 ML IV ONE (15:45)
[2019-04-17 19:18] VITALS: BP 144/81
[2019-04-17 23:19] VITALS: BP 133/75
[2019-04-18] MEDS: IV DEXTROSE 5 %-0.2 % NACL 1,000 ML IV SCH ×2 (01:30→15:39)
[2019-04-18 03:19] VITALS: BP 142/85
[2019-04-18] MEDS: PIPERACILLIN/TAZOBACTAM 2.25 GM in IV NORMAL SALINE 50ML 50 ML IV SCH ×2 (05:53→14:13)
[2019-04-18 06:27] LABS: CALCIUM 8.4 mg/dL (8.5-10.1); CREATININE 0.8 mg/dL (0.6-1.0); GFR 82.5; PHOSPHORUS 2.8 mg/dL (2.6-4.7); POTASSIUM 3.3 mmol/L (3.5-5.1)
[2019-04-18 06:47] LABS: ALBUMIN 2.7 g/dL (3.4-5.0)
[2019-04-18 07:58] VITALS: BP 124/82
[2019-04-18] MEDS ORDERED: POTASSIUM CHLORIDE 20 MEQ TABLET.ER. PO SCH (08:00)
[2019-04-18] MEDS: NYSTATIN 100,000 UNITS/ML 5 ML ORAL.SUSP. SWSW SCH ×2 (09:00→13:00)
[2019-04-18] MEDS: ENOXAPARIN 30 MG/0.3 ML SYRINGE. SQ SCH (09:17)
--- NOTE | 2019-04-18 10:33 | PDOC ---
Infectious Disease Note Subjective Subjective awake, says she is ok, though refuses med and every thing per RN ROS ROS no n/v/d/sob Vital Sign Vital Signs Vital Signs Date Time Temp Pulse Resp B/P (MAP) Pulse Ox O2 Delivery O2 Flow Rate FiO2 04/18/19 07:58 98.1 82 16 124/82 (96) 92 Room Air 98.1 Physical Exam PHYSICAL EXAM GENERAL: Propped up in bed, alert, in NAD HEENT: Oc/op bacterial overgrowth NECK: Supple LUNGS: Decreased in the bases, no wheeze. HEART: S1, S2. ABDOMEN: Soft, nontender EXTREMITIES: no gross edema SKIN: Warm to touch without signs of rash. NEUROLOGIC: Alert, confused but does follow a few simple commands RUE-PICC clean EJ Labs Lab Laboratory Tests Test 04/18/19 06:00 Sodium Level 142 mmol/L (136-145) Potassium Level 3.3 mmol/L (3.5-5.1) Chloride Level 107 mmol/L (98-107) Carbon Dioxide Level 27 mmol/L (21-32) Anion Gap 8 (6-14) Blood Urea Nitrogen 3 mg/dL (7-20) Creatinine 0.8 mg/dL (0.6-1.0) Estimated GFR (Cockcroft-Gault) 82.5 Glucose Level 110 mg/dL (70-99) Calcium Level 8.4 mg/dL (8.5-10.1) Phosphorus Level 2.8 mg/dL (2.6-4.7) Albumin 2.7 g/dL (3.4-5.0) Micro BLOOD CULTURE LC Final Preliminary report Final report BLD CULT RESULT 1 Final Gram negative rods Proteus mirabilis Performed at: - [facility] [address], [place], [place] [id number] Sales Promotion Officer: SHIMON Sánchez MD, Phone: [phone] ANTIMICROBIAL SUSCEPTIBILITY Final Comment S = Susceptible; I = Intermediate; R = Resistant P = Positive; N = Negative MICS are expressed in micrograms per mL Antibiotic RSLT#1 RSLT#2 RSLT#3 RSLT#4 Amoxicillin/Clavulanic Acid S<=2 Ampicillin S<=2 Cefepime S<=0.12 Ceftriaxone S<=0.25 Cefuroxime S<=1 Ciprofloxacin S<=0.25 Ertapenem S<=0.12 Gentamicin S<=1 Levofloxacin S<=0.12 Meropenem S<=0.25 Nitrofurantoin R =128 Piperacillin/Tazobactam S<=4 Tetracycline R>=16 Tobramycin S<=1 Trimethoprim/Sulfa S<=20 Performed at: DA - [facility] [place] [address] [facility] [address], [place], [place] [id number] Sales Promotion Officer: SHIMON Sánchez MD, Phone: [phone] Objective Assessment Bacteremia POA 04/12 proteus UTI 04/12 POA Leukocytosis - better Patchy infiltrates TANESHA - better Dehydration Electrolyte abn - better HTN ? demetia vs acute illness Bacterial overgrowth on tongue Left breast mass, Plan Plan of Care Cont Zosyn F/u labs and cults Oral care Maintain aspiration precautions consider palliative care/hospice DOMITILA STOKES MD Apr 18, 2019 10:33
[2019-04-18] MEDS: POTASSIUM CHL 20MEQ PREMIX 50 ML IV SCH ×2 (11:20→15:40)
[2019-04-18 11:38] VITALS: BP 148/72
--- NOTE | 2019-04-18 12:12 | PDOC ---
PROGRESS NOTES History of Present Illness History of Present Illness VTE Prophylaxis Ordered VTE Prophylaxis Devices: No VTE Pharmacological Prophylaxi: Yes Assessment/Plan Assessment/Plan Impression: Hypernatremia, volume depleted, severe acute metabolic encephalopathy UTI (urinary tract infection) Dehydration SEPSIS SEVERE PROTEIN-CALORIC MALNUTRITION Bacteremia POA 04/12 GNR/GPC 1/2 bottles Altered mental status No acute intracranial process. Moderate cerebral volume loss. Mild chronic small vessel ischemic disease. Dilation of the lateral and third ventricles, slightly out of proportion to the degree of cerebral volume loss. This could relate to advanced central atrophy, although normal pressure hydrocephalus could have a similar appearance. 04/16 FAMILY HOPING FOR BEST, GRADUAL IMPROVEMENT 04/18 PT REFUSING INTERVENTION, START HOSPICE INTAKE, OK WITH FAMILY ADMITTED iv fluid support, frequent bmp nephrology consult neurology consult dvt prophylaxis iv rocephin, urine culture blood culture ID CONSULT swallow study pt/ot/st FAIR PROGNOSIS, remains critically ill, not eating well, consider palliative care soon, comp 04/14 now 39 min exam time, chart review, > 50% of time spent with exam, chart review, pt care coordination Vitals Vitals Vital Signs Date Time Temp Pulse Resp B/P (MAP) Pulse Ox O2 Delivery O2 Flow Rate FiO2 04/18/19 11:38 98.6 80 18 148/72 (97) 94 Room Air 98.6 Physical Exam Physical Exam GENERAL: Propped up in bed, alert, in NAD HEENT: Oc/op bacterial overgrowth NECK: Supple LUNGS: Decreased in the bases, no wheeze. HEART: S1, S2. ABDOMEN: Soft, nontender EXTREMITIES: no gross edema SKIN: Warm to touch without signs of rash. NEUROLOGIC: Alert, confused but does follow a few simple commands RUE-PICC clean EJ General: Alert, Cooperative, No acute distress, Other (CONFUSED, BUT PLEASANT) Heart: Regular rate Lungs: Clear Abdomen: Normal bowel sounds, Soft, No tenderness Extremities: No cyanosis, No edema Skin: No rashes Labs LABS Laboratory Tests Test 04/18/19 06:00 Sodium Level 142 mmol/L (136-145) Potassium Level 3.3 mmol/L (3.5-5.1) Chloride Level 107 mmol/L (98-107) Carbon Dioxide Level 27 mmol/L (21-32) Anion Gap 8 (6-14) Blood Urea Nitrogen 3 mg/dL (7-20) Creatinine 0.8 mg/dL (0.6-1.0) Estimated GFR (Cockcroft-Gault) 82.5 Glucose Level 110 mg/dL (70-99) Calcium Level 8.4 mg/dL (8.5-10.1) Phosphorus Level 2.8 mg/dL (2.6-4.7) FT-Qqd-W-Type Natriuretic Peptide 422 pg/mL (0-449) Albumin 2.7 g/dL (3.4-5.0) Assessment and Plan Assessmemt and Plan Problems Medical Problems: (1) Altered mental status Status: Acute (2) Dehydration Status: Acute (3) Hypernatremia Status: Acute (4) UTI (urinary tract infection) Status: Acute Comment Review of Relevant I have reviewed the following items shalini (where applicable) has been applied. Labs Laboratory Tests Test 04/16/19 12:23 04/17/19 05:15 04/18/19 06:00 Vancomycin Level Trough 13.4 mcg/mL (10.0-20.0) Vancomycin Last Dose Date 04-16-19 Vancomycin Last Dose Time 0000 White Blood Count 8.1 x10^3/uL (4.0-11.0) Red Blood Count 4.83 x10^6/uL (3.50-5.40) Hemoglobin 13.0 g/dL (12.0-15.5) Hematocrit 40.1 % (36.0-47.0) Mean Corpuscular Volume 83 fL (79-100) Mean Corpuscular Hemoglobin 27 pg (25-35) Mean Corpuscular Hemoglobin Concent 32 g/dL (31-37) Red Cell Distribution Width 14.5 % (11.5-14.5) Platelet Count 154 x10^3/uL (140-400) Neutrophils (%) (Auto) 56 % (31-73) Lymphocytes (%) (Auto) 30 % (24-48) Monocytes (%) (Auto) 8 % (0-9) Eosinophils (%) (Auto) 5 % (0-3) Basophils (%) (Auto) 1 % (0-3) Neutrophils # (Auto) 4.5 x10^3/uL (1.8-7.7) Lymphocytes # (Auto) 2.5 x10^3/uL (1.0-4.8) Monocytes # (Auto) 0.6 x10^3/uL (0.0-1.1) Eosinophils # (Auto) 0.4 x10^3/uL (0.0-0.7) Basophils # (Auto) 0.1 x10^3/uL (0.0-0.2) Sodium Level 143 mmol/L (136-145) 142 mmol/L (136-145) Potassium Level 3.0 mmol/L (3.5-5.1) 3.3 mmol/L (3.5-5.1) Chloride Level 107 mmol/L (98-107) 107 mmol/L (98-107) Carbon Dioxide Level 28 mmol/L (21-32) 27 mmol/L (21-32) Anion Gap 8 (6-14) 8 (6-14) Blood Urea Nitrogen 4 mg/dL (7-20) 3 mg/dL (7-20) Creatinine 0.8 mg/dL (0.6-1.0) 0.8 mg/dL (0.6-1.0) Estimated GFR (Cockcroft-Gault) 82.5 82.5 Glucose Level 174 mg/dL (70-99) 110 mg/dL (70-99) Calcium Level 8.0 mg/dL (8.5-10.1) 8.4 mg/dL (8.5-10.1) Phosphorus Level 2.6 mg/dL (2.6-4.7) 2.8 mg/dL (2.6-4.7) Magnesium Level 1.5 mg/dL (1.8-2.4) Albumin 2.6 g/dL (3.4-5.0) 2.7 g/dL (3.4-5.0) PZ-Lcz-K-Type Natriuretic Peptide 422 pg/mL (0-449) Laboratory Tests Test 04/18/19 06:00 Sodium Level 142 mmol/L (136-145) Potassium Level 3.3 mmol/L (3.5-5.1) Chloride Level 107 mmol/L (98-107) Carbon Dioxide Level 27 mmol/L (21-32) Anion Gap 8 (6-14) Blood Urea Nitrogen 3 mg/dL (7-20) Creatinine 0.8 mg/dL (0.6-1.0) Estimated GFR (Cockcroft-Gault) 82.5 Glucose Level 110 mg/dL (70-99) Calcium Level 8.4 mg/dL (8.5-10.1) Phosphorus Level 2.8 mg/dL (2.6-4.7) HO-Wpb-Z-Type Natriuretic Peptide 422 pg/mL (0-449) Albumin 2.7 g/dL (3.4-5.0) Microbiology 04/13/19 Blood Culture - Final, Complete NO GROWTH AFTER 5 DAYS Medications Current Medications Sodium Chloride 1,000 ml @ 250 mls/hr 1X ONCE IV Last administered on 04/12/19at 12:15; Start 04/12/19 at 12:15; Stop 04/12/19 at 16:14; Status DC Sodium Chloride 500 ml @ 500 mls/hr 1X ONCE IV Last administered on 04/12/19at 13:43; Start 04/12/19 at 12:15; Stop 04/12/19 at 13:14; Status DC Ceftriaxone Sodium (Rocephin) 1 gm 1X ONCE IVP Last administered on 04/12/19at 13:44; Start 04/12/19 at 13:00; Stop 04/12/19 at 13:01; Status DC Ondansetron HCl (Zofran) 4 mg PRN Q8HRS PRN IV NAUSEA/VOMITING; Start 04/12/19 at 14:00; Stop 04/13/19 at 13:59; Status DC Sodium Chloride (Normal Saline Flush) 3 ml QSHIFT PRN IV AFTER MEDS AND BLOOD DRAWS; Start 04/12/19 at 20:30 Ondansetron HCl (Zofran) 4 mg PRN Q4HRS PRN IV NAUSEA/VOMITING; Start 04/12/19 at 20:30 Acetaminophen (Tylenol) 650 mg PRN Q4HRS PRN PO TEMP OVER 100.4F OR MILD PAIN; Start 04/12/19 at 20:30 Albuterol Sulfate (Ventolin Neb Soln) 2.5 mg PRN Q4HRS PRN NEB SHORTNESS OF BREATH; Start 04/12/19 at 20:30 Guaifenesin (Robitussin) 200 mg PRN Q4HRS PRN PO COUGH; Start 04/12/19 at 20:30 Lorazepam (Ativan) 0.5 mg PRN Q4HRS PRN PO ANXIETY / AGITATION; Start 04/12/19 at 20:30 Enoxaparin Sodium (Lovenox 30mg Syringe) 30 mg DAILY SQ Last administered on 04/18/19at 09:17; Start 04/13/19 at 09:00 Sodium Chloride 1,000 ml @ 75 mls/hr [id number] IV Last administered on 04/13/19at 03:34; Start 04/13/19 at 03:30; Stop 04/13/19 at 08:16; Status DC Vancomycin HCl 750 mg/Sodium Chloride 250 ml @ 250 mls/hr Q24H ONCE IV ; Start 04/13/19 at 08:00; Stop 04/13/19 at 08:59; Status UNV Piperacillin Sod/ Tazobactam Sod 2.25 gm/Sodium Chloride 50 ml @ 100 mls/hr Q6HRS IV Last administered on 04/18/19at 05:53; Start 04/13/19 at 08:00 Vancomycin HCl 1 gm/Sodium Chloride 250 ml @ 250 mls/hr 1X ONCE IV Last administered on 04/13/19at 09:39; Start 04/13/19 at 09:00; Stop 04/13/19 at 09:59; Status DC Vancomycin HCl (Vanco Per Pharmacy) 1 each PRN DAILY PRN MC SEE COMMENTS Last administered on 04/15/19at 11:19; Start 04/13/19 at 08:15; Stop 04/16/19 at 13:11; Status DC Dextrose/Sodium Chloride 1,000 ml @ 75 mls/hr [id number] IV Last administered on 04/18/19at 01:30; Start 04/13/19 at 08:30 Vancomycin HCl 750 mg/Sodium Chloride 250 ml @ 250 mls/hr Q24H IV Last administered on 04/15/19at 11:04; Start 04/14/19 at 10:00; Stop 04/15/19 at 11:03; Status DC Vancomycin HCl (Vancomycin Trough Level) 1 each 1X ONCE MC Last administered on 04/15/19at 09:30; Start 04/15/19 at 09:30; Stop 04/15/19 at 09:31; Status DC Hydralazine HCl (Apresoline Inj) 10 mg PRN Q6HRS PRN IVP ELEVATED BP, SEE COMMENTS Last administered on 04/13/19at 14:14; Start 04/13/19 at 14:15 Potassium Chloride 30 meq/ Sodium Chloride 1,015 ml @ 75 mls/hr 1X ONCE IV Last administered on 04/14/19at 12:27; Start 04/14/19 at 11:30; Stop 04/15/19 at 01:01; Status DC Potassium Chloride/Water 100 ml @ 100 mls/hr Q1H IV Last administered on 04/15/19at 18:39; Start 04/15/19 at 10:00; Stop 04/15/19 at 13:59; Status DC Vancomycin HCl 750 mg/Sodium Chloride 250 ml @ 250 mls/hr Q12H IV Last administered on 04/16/19at 12:28; Start 04/15/19 at 12:00; Stop 04/16/19 at 13:11; Status DC Vancomycin HCl (Vancomycin Trough Level) 1 each 1X ONCE MC Last administered on 04/16/19at 11:30; Start 04/16/19 at 11:30; Stop 04/16/19 at 11:31; Status DC Nystatin (Nystatin Oral Susp) 7.5 ml [id number] Last administered on 04/17/19at 21:16; Start 04/15/19 at 13:00 Potassium Chloride/Water 100 ml @ 100 mls/hr Q1H IV Last administered on 04/16/19at 16:32; Start 04/16/19 at 14:00; Stop 04/16/19 at 15:59; Status DC Potassium Chloride (Klor-Con) 40 meq 1X ONCE PO Last administered on 04/17/19 at 15:35; Start 04/17/19 at 15:15; Stop 04/17/19 at 15:16; Status DC Potassium Chloride (Klor-Con) 20 meq DAILYWBKFT PO ; Start 04/18/19 at 08:00 Magnesium Sulfate 50 ml @ 25 mls/hr 1X ONCE IV Last administered on 04/17/19at 16:16; Start 04/17/19 at 15:45; Stop 04/17/19 at 17:44; Status DC Potassium Chloride/Water 50 ml @ 50 mls/hr Q1H IV Last administered on 04/18/19at 11:20; Start 04/18/19 at 10:00; Stop 04/18/19 at 11:59; Status DC Active Scripts Active Reported Namenda Xr (Memantine Hcl) 28 Mg Cap.spr.24 28 Mg PO DAILY Miralax (Polyethylene Glycol 3350) 17 Gm Powd.pack 1 Packet PO DAILY dissolve in water Milk Of Magnesia (Magnesium Hydroxide) 400 Mg/5 Ml Oral.susp 400 Mg PO DAILY Furosemide 20 Mg Tablet 20 Mg PO DAILY Gabapentin 600 Mg Tablet 600 Mg PO QHS Gabapentin 300 Mg Capsule 300 Mg PO DAILY Docusate Sodium 100 Mg Capsule 100 Mg PO DAILY Children's Aspirin (Aspirin) 81 Mg Tab.chew 81 Mg PO DAILY Aricept (Donepezil Hcl) 10 Mg Tablet 10 Mg PO DAILY Amlodipine Besylate 5 Mg Tablet 5 Mg PO DAILY Acetaminophen 325 Mg/10.15 Ml Solution 650 Mg PO Q8HRS Vitals/I & O Vital Sign - Last 24 Hours 04/17/19 04/17/19 04/17/19 04/18/19 14:41 19:18 23:19 03:19 Temp 97.8 99.0 98.8 98.9 97.8 99.0 98.8 98.9 Pulse 80 89 81 80 Resp 18 18 18 18 B/P (MAP) 128/76 (93) 144/81 (102) 133/75 (94) 142/85 (104) Pulse Ox 96 95 94 96 O2 Delivery Room Air Room Air Room Air Room Air 04/18/19 04/18/19 07:58 11:38 Temp 98.1 98.6 98.1 98.6 Pulse 82 80 Resp 16 18 B/P (MAP) 124/82 (96) 148/72 (97) Pulse Ox 92 94 O2 Delivery Room Air Room Air Intake and Output 04/17/19 04/17/19 04/18/19 15:00 23:00 07:00 Intake Total 60 ml 120 ml 25 ml Balance 60 ml 120 ml 25 ml Nutrition Consultation Dietary Evaluation: Recommendations by RD: Dietary education by RD, Increase Calorie Intake, Protein supplementation Comments: ensure pudding and magic cup bid Expected Outcomes/Goals: to meet >50% est nutr needs Malnutrition Findings: Food and Nutrition Intake (Sev: <50% est energy req 5days Weight Status: Underweight JODY UNGER MD Apr 18, 2019 12:12
--- NOTE | 2019-04-18 12:31 | PDOC3 ---
Discharge Summary Date of Admission: Apr 12, 2019 Date of Discharge: Apr 18, 2019 Follow-Up: 1-2 days Admitting Diagnosis comment: Assessment/Plan Assessment/Plan Impression: Hypernatremia, volume depleted, severe acute metabolic encephalopathy UTI (urinary tract infection) Dehydration SEPSIS SEVERE PROTEIN-CALORIC MALNUTRITION Bacteremia POA 04/12 GNR/GPC 1/2 bottles Altered mental status No acute intracranial process. Moderate cerebral volume loss. Mild chronic small vessel ischemic disease. Dilation of the lateral and third ventricles, slightly out of proportion to the degree of cerebral volume loss. This could relate to advanced central atrophy, although normal pressure hydrocephalus could have a similar appearance. 04/16 FAMILY HOPING FOR BEST, GRADUAL IMPROVEMENT 04/18 PT REFUSING INTERVENTION, START HOSPICE INTAKE, OK WITH FAMILY ADMITTED iv fluid support, frequent bmp nephrology consult neurology consult dvt prophylaxis iv rocephin, urine culture blood culture ID CONSULT swallow study pt/ot/st FAIR PROGNOSIS, remains critically ill, not eating well, consider palliative care soon, comp 04/14 now 39 min exam time, chart review, > 50% of time spent with exam, chart review, pt care coordination Vitals Vitals Vital Signs Date Time Temp Pulse Resp B/P (MAP) Pulse Ox O2 Delivery O2 Flow Rate FiO2 04/18/19 11:38 98.6 80 18 148/72 (97) 94 Room Air 98.6 Physical Exam Physical Exam GENERAL: Propped up in bed, alert, in NAD HEENT: Oc/op bacterial overgrowth NECK: Supple LUNGS: Decreased in the bases, no wheeze. HEART: S1, S2. ABDOMEN: Soft, nontender EXTREMITIES: no gross edema SKIN: Warm to touch without signs of rash. NEUROLOGIC: Alert, confused but does follow a few simple commands RUE-PICC clean EJ General: Alert, Cooperative, No acute distress, Other (CONFUSED, BUT PLEASANT) Heart: Regular rate Lungs: Clear Abdomen: Normal bowel sounds, Soft, No tenderness Extremities: No cyanosis, No edema Skin: No rashes FINAL DIAGNOSIS Problems Medical Problems: (1) Altered mental status Status: Acute (2) Dehydration Status: Acute (3) Hypernatremia Status: Acute (4) UTI (urinary tract infection) Status: Acute Brief Hospital Course Ms. Gudino is a 83 old [sex] who presented with [ SEPSIS, HYPERNATREMIA] CONDITION AT DISCHARGE: Comment (POORPROGNOSIS) Discharge Medications Current Medications Sodium Chloride 1,000 ml @ 250 mls/hr 1X ONCE IV Last administered on 04/12/19at 12:15; Start 04/12/19 at 12:15; Stop 04/12/19 at 16:14; Status DC Sodium Chloride 500 ml @ 500 mls/hr 1X ONCE IV Last administered on 04/12/19at 13:43; Start 04/12/19 at 12:15; Stop 04/12/19 at 13:14; Status DC Ceftriaxone Sodium (Rocephin) 1 gm 1X ONCE IVP Last administered on 04/12/19at 13:44; Start 04/12/19 at 13:00; Stop 04/12/19 at 13:01; Status DC Ondansetron HCl (Zofran) 4 mg PRN Q8HRS PRN IV NAUSEA/VOMITING; Start 04/12/19 at 14:00; Stop 04/13/19 at 13:59; Status DC Sodium Chloride (Normal Saline Flush) 3 ml QSHIFT PRN IV AFTER MEDS AND BLOOD DRAWS; Start 04/12/19 at 20:30 Ondansetron HCl (Zofran) 4 mg PRN Q4HRS PRN IV NAUSEA/VOMITING; Start 04/12/19 at 20:30 Acetaminophen (Tylenol) 650 mg PRN Q4HRS PRN PO TEMP OVER 100.4F OR MILD PAIN; Start 04/12/19 at 20:30 Albuterol Sulfate (Ventolin Neb Soln) 2.5 mg PRN Q4HRS PRN NEB SHORTNESS OF BREATH; Start 04/12/19 at 20:30 Guaifenesin (Robitussin) 200 mg PRN Q4HRS PRN PO COUGH; Start 04/12/19 at 20:30 Lorazepam (Ativan) 0.5 mg PRN Q4HRS PRN PO ANXIETY / AGITATION; Start 04/12/19 at 20:30 Enoxaparin Sodium (Lovenox 30mg Syringe) 30 mg DAILY SQ Last administered on 04/18/19at 09:17; Start 04/13/19 at 09:00 Sodium Chloride 1,000 ml @ 75 mls/hr [id number] IV Last administered on 04/13/19 at 03:34; Start 04/13/19 at 03:30; Stop 04/13/19 at 08:16; Status DC Vancomycin HCl 750 mg/Sodium Chloride 250 ml @ 250 mls/hr Q24H ONCE IV ; Start 04/13/19 at 08:00; Stop 04/13/19 at 08:59; Status UNV Piperacillin Sod/ Tazobactam Sod 2.25 gm/Sodium Chloride 50 ml @ 100 mls/hr Q6HRS IV Last administered on 04/18/19at 05:53; Start 04/13/19 at 08:00 Vancomycin HCl 1 gm/Sodium Chloride 250 ml @ 250 mls/hr 1X ONCE IV Last administered on 04/13/19at 09:39; Start 04/13/19 at 09:00; Stop 04/13/19 at 09:59; Status DC Vancomycin HCl (Vanco Per Pharmacy) 1 each PRN DAILY PRN MC SEE COMMENTS Last administered on 04/15/19at 11:19; Start 04/13/19 at 08:15; Stop 04/16/19 at 13:11; Status DC Dextrose/Sodium Chloride 1,000 ml @ 75 mls/hr [id number] IV Last administered on 04/18/19at 01:30; Start 04/13/19 at 08:30 Vancomycin HCl 750 mg/Sodium Chloride 250 ml @ 250 mls/hr Q24H IV Last administered on 04/15/19at 11:04; Start 04/14/19 at 10:00; Stop 04/15/19 at 11:03; Status DC Vancomycin HCl (Vancomycin Trough Level) 1 each 1X ONCE MC Last administered on 04/15/19at 09:30; Start 04/15/19 at 09:30; Stop 04/15/19 at 09:31; Status DC Hydralazine HCl (Apresoline Inj) 10 mg PRN Q6HRS PRN IVP ELEVATED BP, SEE COMMENTS Last administered on 04/13/19at 14:14; Start 04/13/19 at 14:15 Potassium Chloride 30 meq/ Sodium Chloride 1,015 ml @ 75 mls/hr 1X ONCE IV Last administered on 04/14/19at 12:27; Start 04/14/19 at 11:30; Stop 04/15/19 at 01:01; Status DC Potassium Chloride/Water 100 ml @ 100 mls/hr Q1H IV Last administered on 04/15/19at 18:39; Start 04/15/19 at 10:00; Stop 04/15/19 at 13:59; Status DC Vancomycin HCl 750 mg/Sodium Chloride 250 ml @ 250 mls/hr Q12H IV Last administered on 04/16/19at 12:28; Start 04/15/19 at 12:00; Stop 04/16/19 at 13:11; Status DC Vancomycin HCl (Vancomycin Trough Level) 1 each 1X ONCE MC Last administered on 04/16/19at 11:30; Start 04/16/19 at 11:30; Stop 04/16/19 at 11:31; Status DC Nystatin (Nystatin Oral Susp) 7.5 ml [id number] Last administered on at 21:16; Start 04/15/19 at 13:00 Potassium Chloride/Water 100 ml @ 100 mls/hr Q1H IV Last administered on 04/16/19at 16:32; Start 04/16/19 at 14:00; Stop 04/16/19 at 15:59; Status DC Potassium Chloride (Klor-Con) 40 meq 1X ONCE PO Last administered on 04/17/19at 15:35; Start 04/17/19 at 15:15; Stop 04/17/19 at 15:16; Status DC Potassium Chloride (Klor-Con) 20 meq DAILYWBKFT PO ; Start 04/18/19 at 08:00 Magnesium Sulfate 50 ml @ 25 mls/hr 1X ONCE IV Last administered on 04/17/19at 16:16; Start 04/17/19 at 15:45; Stop 04/17/19 at 17:44; Status DC Potassium Chloride/Water 50 ml @ 50 mls/hr Q1H IV Last administered on 04/18/19at 11:20; Start 04/18/19 at 10:00; Stop 04/18/19 at 11:59; Status DC Active Scripts Active Reported Namenda Xr (Memantine Hcl) 28 Mg Cap.spr.24 28 Mg PO DAILY Miralax (Polyethylene Glycol 3350) 17 Gm Powd.pack 1 Packet PO DAILY dissolve in water Milk Of Magnesia (Magnesium Hydroxide) 400 Mg/5 Ml Oral.susp 400 Mg PO DAILY Furosemide 20 Mg Tablet 20 Mg PO DAILY Gabapentin 600 Mg Tablet 600 Mg PO QHS Gabapentin 300 Mg Capsule 300 Mg PO DAILY Docusate Sodium 100 Mg Capsule 100 Mg PO DAILY Children's Aspirin (Aspirin) 81 Mg Tab.chew 81 Mg PO DAILY Aricept (Donepezil Hcl) 10 Mg Tablet 10 Mg PO DAILY Amlodipine Besylate 5 Mg Tablet 5 Mg PO DAILY Acetaminophen 325 Mg/10.15 Ml Solution 650 Mg PO Q8HRS Vital Signs Vital Signs Date Time Temp Pulse Resp B/P (MAP) Pulse Ox O2 Delivery O2 Flow Rate FiO2 04/18/19 11:38 98.6 80 18 148/72 (97) 94 Room Air 98.6 Labs Laboratory Tests Test 04/17/19 05:15 04/18/19 06:00 White Blood Count 8.1 x10^3/uL (4.0-11.0) Red Blood Count 4.83 x10^6/uL (3.50-5.40) Hemoglobin 13.0 g/dL (12.0-15.5) Hematocrit 40.1 % (36.0-47.0) Mean Corpuscular Volume 83 fL (79-100) Mean Corpuscular Hemoglobin 27 pg (25-35) Mean Corpuscular Hemoglobin Concent 32 g/dL (31-37) Red Cell Distribution Width 14.5 % (11.5-14.5) Platelet Count 154 x10^3/uL (140-400) Neutrophils (%) (Auto) 56 % (31-73) Lymphocytes (%) (Auto) 30 % (24-48) Monocytes (%) (Auto) 8 % (0-9) Eosinophils (%) (Auto) 5 % (0-3) Basophils (%) (Auto) 1 % (0-3) Neutrophils # (Auto) 4.5 x10^3/uL (1.8-7.7) Lymphocytes # (Auto) 2.5 x10^3/uL (1.0-4.8) Monocytes # (Auto) 0.6 x10^3/uL (0.0-1.1) Eosinophils # (Auto) 0.4 x10^3/uL (0.0-0.7) Basophils # (Auto) 0.1 x10^3/uL (0.0-0.2) Sodium Level 143 mmol/L (136-145) 142 mmol/L (136-145) Potassium Level 3.0 mmol/L (3.5-5.1) 3.3 mmol/L (3.5-5.1) Chloride Level 107 mmol/L (98-107) 107 mmol/L (98-107) Carbon Dioxide Level 28 mmol/L (21-32) 27 mmol/L (21-32) Anion Gap 8 (6-14) 8 (6-14) Blood Urea Nitrogen 4 mg/dL (7-20) 3 mg/dL (7-20) Creatinine 0.8 mg/dL (0.6-1.0) 0.8 mg/dL (0.6-1.0) Estimated GFR (Cockcroft-Gault) 82.5 82.5 Glucose Level 174 mg/dL (70-99) 110 mg/dL (70-99) Calcium Level 8.0 mg/dL (8.5-10.1) 8.4 mg/dL (8.5-10.1) Phosphorus Level 2.6 mg/dL (2.6-4.7) 2.8 mg/dL (2.6-4.7) Magnesium Level 1.5 mg/dL (1.8-2.4) Albumin 2.6 g/dL (3.4-5.0) 2.7 g/dL (3.4-5.0) EO-Pot-L-Type Natriuretic Peptide 422 pg/mL (0-449) Laboratory Tests Test 04/18/19 06:00 Sodium Level 142 mmol/L (136-145) Potassium Level 3.3 mmol/L (3.5-5.1) Chloride Level 107 mmol/L (98-107) Carbon Dioxide Level 27 mmol/L (21-32) Anion Gap 8 (6-14) Blood Urea Nitrogen 3 mg/dL (7-20) Creatinine 0.8 mg/dL (0.6-1.0) Estimated GFR (Cockcroft-Gault) 82.5 Glucose Level 110 mg/dL (70-99) Calcium Level 8.4 mg/dL (8.5-10.1) Phosphorus Level 2.8 mg/dL (2.6-4.7) GX-Wkr-Y-Type Natriuretic Peptide 422 pg/mL (0-449) Albumin 2.7 g/dL (3.4-5.0) Allergies Allergies Coded Allergies Type Severity Reaction Last Updated Verified oxycodone Allergy Intermediate Unknown 04/12/19 Yes Disposition/Orders: Other (D/C TO SNF WITH HOSPICE) Patient Instructions D/C PLANNING 37 MIN JODY UNGER MD Apr 18, 2019 12:31
[2019-04-18] MEDS ORDERED: POTA20TA4 PO (12:33)
[2019-04-18] MEDS ORDERED: NYST100054 SWSW (12:33)
--- NOTE | 2019-04-18 12:37 | SNU/HH DC ---
DISCHARGE ORDERS DISCHARGE INFORMATION: FINAL DIAGNOSIS Problems Medical Problems: (1) Altered mental status Status: Acute (2) Dehydration Status: Acute (3) Hypernatremia Status: Acute (4) UTI (urinary tract infection) Status: Acute CONDITION ON DISCHARGE: Guarded CODE STATUS: Code Status: DNR/DNI FDC: SNF STAY <30 DAYS: Yes HOSPICE: HOSPICE: Yes HOSPICE EVAL & TREAT: Yes LTAC: ADMIT TO LTAC: No POST DISCHARGE ORDERS: WEIGHT BEARING STATUS: As tolerated DIET AFTER DISCHARGE: Regular CHECKS AFTER DISCHARGE: CHECKS AFTER DISCHARGE: Check blood press - daily TREATMENT/EQUIPMENT ORDERS: ADAPTIVE EQUIPMENT NEEDED: Front wheeled walker Physical Therapy For: Evalulation/Treatment Occupational Therapy For: Evaluation/Treatment Speech Language Pathology For: Evaluation/Treatment DISCHARGE MEDICATIONS: Home Meds Active Scripts Potassium Chloride (KLOR-CON M20) 20 Meq Tab.er.prt, 20 MEQ PO DAILYWBKFT for SUPPLEMENT for 10 Days, #10 TAB.SR Prov:JODY UNGER MD 04/18/19 Nystatin (NYSTATIN) 100,000 Unit/1 Ml Oral.susp, 7.5 ML SWSW [id number] for RASH for 14 Days, #30 MISC Prov:JODY UGNER MD 04/18/19 Reported Medications Memantine Hcl (NAMENDA XR) 28 Mg Cap.spr.24, 28 MG PO DAILY for dementia, TAB.SR 04/14/19 Polyethylene Glycol 3350 (MIRALAX) 17 Gm Powd.pack, 1 PACKET PO DAILY for constipation, #30 PACKET 0 Refills dissolve in water 04/14/19 Magnesium Hydroxide (MILK OF MAGNESIA) 400 Mg/5 Ml Oral.susp, 400 MG PO DAILY for constipation, MISC 04/14/19 Gabapentin (GABAPENTIN) 600 Mg Tablet, 600 MG PO QHS for NEUROGENIC PAIN, TAB 04/14/19 Gabapentin (GABAPENTIN) 300 Mg Capsule, 300 MG PO DAILY for neuropathy, CAP 04/14/19 Docusate Sodium (DOCUSATE SODIUM) 100 Mg Capsule, 100 MG PO DAILY for bowel regimen, CAP 04/14/19 Aspirin (Children's Aspirin) 81 Mg Tab.chew, 81 MG PO DAILY for prophylaxis, TAB.CHEW 04/14/19 Donepezil Hcl (ARICEPT) 10 Mg Tablet, 10 MG PO DAILY for dementia, TAB 12/13/19 Acetaminophen (ACETAMINOPHEN) 325 Mg/10.15 Ml Solution, 650 MG PO Q8HRS for pain, MISC 04/14/19 Discontinued Reported Medications Furosemide (FUROSEMIDE) 20 Mg Tablet, 20 MG PO DAILY for edema, TAB 04/14/19 Amlodipine Besylate (AMLODIPINE BESYLATE) 5 Mg Tablet, 5 MG PO DAILY for hypertension, TAB 04/14/19 JODY UNGER MD Apr 18, 2019 12:37
--- NOTE | 2019-04-18 13:57 | PDOC ---
PROGRESS NOTES Assessment Assessment Metabolic encephalopathy. Hypernatremia. UTI. Sepsis. HTN. Brain volume loss. AD. Other medical diseases. RECOMMENDATIONS/PLAN: Continue medical treatment. Continue ID treatment. OT/PT. FU with PCP. Subjective: Only able to follow 1-2 commands. Past Medical History Cardiovascular: HTN CENTRAL NERVOUS SYSTEM: CVA, Dementia (Alzheimers) GI: GERD Musculoskeletal: low back pain, Osteoarthritis Past Surgical History Cataract Removal, Hysterectomy, Other (back) Family History No pertinent hx Social History , no tobacco, alcohol, custodial resident Allergies Coded Allergies: Oxycodone (Verified Allergy, Intermediate, Unknown, 04/12/19) ROS Negative for fever, chills, weight loss, shortness of breath, chest pain, indigestion, hematochezia, melena, and dysuria. Full 14-point review of systems is negative. MEDICATIONS: Refer to MAR PHYSICAL EXAMINATION: General appearance in chronic distress. HEENT: Normocephalic and nontraumatic. Eyes, nose, ears, and throat are unremarkable. Hearing decrease. Neck is supple. No lymphadenopathy. No Crepitus. Cardiovascular: S1, S2, regular rate and rhythm. Pulmonary: Clear to auscultation bilaterally. Abdomen: Bowel sounds are positive. Extremities: No rash, lesions, or edema. No restriction of range of motion NEUROLOGICAL EXAMINATION: Awake. Not oriented to time, place and person. Not able to communicate. PERRL. EOMI. CN: no focal findings. Muscle tone: within normal. Muscle strength: 4+ DTR: 2- Plantar reflex: Neutral response bilaterally Gait: not able to walk. Sensory exam: no abnormal findings. No other cerebellar signs elicited. F-T-N test not examed due to not follow commands. Objective Objective Vital Signs Date Time Temp Pulse Resp B/P (MAP) Pulse Ox O2 Delivery O2 Flow Rate FiO2 04/18/19 11:38 98.6 80 18 148/72 (97) 94 Room Air 98.6 Intake and Output 04/18/19 07:00 Intake Total 205 ml Balance 205 ml Intake Oral 205 ml # Voids 6 # Bowel Movements 2 Vitals Signs Vitals VS - Last 72 Hours, by Label Date Time Temp Pulse Resp B/P (MAP) Pulse Ox O2 Delivery O2 Flow Rate FiO2 04/18/19 11:38 98.6 80 18 148/72 (97) 94 Room Air 98.6 04/18/19 07:58 98.1 82 16 124/82 (96) 92 Room Air 98.1 04/18/19 03:19 98.9 80 18 142/85 (104) 96 Room Air 98.9 04/17/19 23:19 98.8 81 18 133/75 (94) 94 Room Air 98.8 04/17/19 19:18 99.0 89 18 144/81 (102) 95 Room Air 99.0 04/17/19 14:41 97.8 80 18 128/76 (93) 96 Room Air 97.8 04/17/19 11:49 97.9 88 20 121/74 (90) 99 Room Air 97.9 04/17/19 08:00 Room Air 04/17/19 07:00 97.8 94 20 112/68 (83) 99 Room Air 97.8 Laboratory Laboratory Laboratory Tests Test 04/18/19 06:00 Sodium Level 142 mmol/L (136-145) Potassium Level 3.3 mmol/L (3.5-5.1) Chloride Level 107 mmol/L (98-107) Carbon Dioxide Level 27 mmol/L (21-32) Anion Gap 8 (6-14) Blood Urea Nitrogen 3 mg/dL (7-20) Creatinine 0.8 mg/dL (0.6-1.0) Estimated GFR (Cockcroft-Gault) 82.5 Glucose Level 110 mg/dL (70-99) Calcium Level 8.4 mg/dL (8.5-10.1) Phosphorus Level 2.8 mg/dL (2.6-4.7) RG-Pkv-H-Type Natriuretic Peptide 422 pg/mL (0-449) Albumin 2.7 g/dL (3.4-5.0) Microbiology 04/13/19 Blood Culture - Final, Complete NO GROWTH AFTER 5 DAYS Medication Medications Current Medications Magnesium Sulfate 50 ml @ 25 mls/hr 1X ONCE IV Last administered on 04/17/19at 16:16; Start 04/17/19 at 15:45; Stop 04/17/19 at 17:44; Status DC Potassium Chloride/Water 50 ml @ 50 mls/hr Q1H IV Last administered on 04/18/19at 11:20; Start 04/18/19 at 10:00; Stop 04/18/19 at 11:59; Status DC Potassium Chloride (Klor-Con) 20 meq DAILYWBKFT PO ; Start 04/18/19 at 08:00 Potassium Chloride (Klor-Con) 40 meq 1X ONCE PO Last administered on 04/17/19a t 15:35; Start 04/17/19 at 15:15; Stop 04/17/19 at 15:16; Status DC Comment Review of Relevant I have reviewed the following items shalini (where applicable) has been applied. OLGA LUJAN MD Apr 18, 2019 13:57
[2019-04-18 15:49] VITALS: BP 132/70
--- NOTE | 2019-04-18 17:28 | NUR ---
Pt discharged back to [facility]. Pt in process of going on hospice. Transportation provided by EMS. Prescriptions placed in packet going to facility. Report called to Opal at [phone]
== END 2019-04-18 17:32 | disposition hospice, inpatient (51) | DRG 871 ==
LOC: ER 11:42 → ED HOLD 14:00 → 6 SOUTH 19:31
PROVIDERS: ADMIT Family Medicine; ATTEND Family Medicine
DX: A41.9 Sepsis, unspecified organism (principal); G93.41 Metabolic encephalopathy; E43 Unspecified severe protein-calorie malnutrition; E87.0 Hyperosmolality and hypernatremia; J98.11 Atelectasis; N17.9 Acute kidney failure, unspecified; N39.0 Urinary tract infection, site not specified; E86.0 Dehydration; E87.6 Hypokalemia; F02.80 Dementia in other diseases classified elsewhere, unspecified severity, without behavioral disturbance, psychotic disturbance, mood disturbance, and anxiety; K21.9 Gastro-esophageal reflux disease without esophagitis; G30.9 Alzheimer's disease, unspecified; I10 Essential (primary) hypertension; N63.20 Unspecified lump in the left breast, unspecified quadrant; Z82.49 Family history of ischemic heart disease and other diseases of the circulatory system; Z86.73 Personal history of transient ischemic attack (TIA), and cerebral infarction without residual deficits; Z90.710 Acquired absence of both cervix and uterus
CPT/HCPCS: 36415; 36569; 70450; 71045; 74176; 80048; 80053; 80069; 80202; 81003; 82140; 83735; 83880; 83930; 83935; 84484; 85025; 85610; 87040; 87077; 87086; 87205; 93005; 96374; J0360; J0696; J1650; J2543; J3370; J3475; J3480; J7030; J7040; J7050; P9612; 92610; 99285-25; G0378